=== PATIENT | female | born 1955 | race Caucasian/White ===

== ENCOUNTER 2022-07-07 11:23 | Inpatient (IN) ==
[2022-07-07] MEDS ORDERED: XOPENEX 1.25 MG/3 ML NEBULE NEB ONE (12:51)
[2022-07-07] MEDS: XOPENEX 1.25 MG/3 ML NEBULE NEB SCH ×2 (13:03→20:34)
[2022-07-07] MEDS ORDERED: TUSSIONEX PENNKINETIC SUSP PO PRN (13:10)
[2022-07-07] MEDS ORDERED: REMDESIVIR 200 MG in NS 250 ML IV 250 ML IV NR (13:18)
[2022-07-07 13:54] LABS: BASOPHILS % (AUTO) 0.5 % (0.2-1.0); EOSINOPHILS % (AUTO) 0.8 % (0.9-2.9); HEMATOCRIT 40.9 % (36.0-47.0); HEMOGLOBIN 13.4 g/dL (12.0-16.0); LYMPHOCYTES # (AUTO) 1.4 X10^3/uL (1.3-2.9); LYMPHOCYTES % (AUTO) 22.8 % (21.0-51.0); MEAN CORPUSCULAR HEMOGLOBIN 25.6 pg (27.0-34.0); MEAN CORPUSCULAR HGB CONC 32.7 g/dL (33.0-35.0); MEAN CORPUSCULAR VOLUME 78.3 fL (80.0-100.0); MEAN PLATELET VOLUME 7.1 fL (7.4-11.0); MONOCYTES # (AUTO) 0.6 x10^3/uL (0.3-0.8); MONOCYTES % (AUTO) 10.1 % (0.0-13.0); NEUTROPHILS # (AUTO) 4.1 x10^3/uL (2.2-4.8); NEUTROPHILS % (AUTO) 65.8 % (42.0-75.0); RED BLOOD COUNT 5.23 X10^6/uL (3.5-5.4); RED CELL DISTRIBUTION WIDTH 15.3 % (11.6-16.5); WHITE BLOOD COUNT 6.3 X10^3/uL (3.6-10.0)
--- NOTE | 2022-07-07 13:55 | EKG ---
Test Reason : SOB Blood Pressure : */* mmHG Vent. Rate : 82 BPM Atrial Rate : 82 BPM P-R Int : 122 ms QRS Dur : 90 ms QT Int : 322 ms P-R-T Axes : 63 -11 152 degrees QTc Int : 376 ms Normal sinus rhythm Left ventricular hypertrophy with repolarization abnormality ( [place] product ) Abnormal ECG No previous ECGs available Confirmed by Josh Cowart ([id number]) on 07/08/2022 9:51:29 AM Referred By: Confirmed By: Josh Cowart
[2022-07-07] MEDS ORDERED: NS 1/2 1,000 ML IV 1,000 ML IV ONE (14:02)
[2022-07-07 14:12] LABS: ALANINE AMINOTRANSFERASE 27 Units/L (12-78); ALBUMIN 2.2 g/dL (3.4-5.0); ALKALINE PHOSPHATASE 75 Units/L (46-116); ASPARTATE AMINO TRANSFERASE 33 Units/L (15-37); BLOOD UREA NITROGEN 17 mg/dL (7-18); CALCIUM 8.7 mg/dL (8.5-10.1); CARBON DIOXIDE 32.6 mmol/L (21-32); CHLORIDE 100 mmol/L (98-107); COR CA(FOR HYPOALB) 10.1 mg/dL (8.5-10.1); COR NA(FOR HYPERGLY) 138 mmol/L (136-145); CREATINE KINASE 32 Units/L (26-192); SODIUM 138 mmol/L (136-145); TOTAL PROTEIN 6.6 g/dL (6.4-8.2); eGFR NON BLACK RACES 53 (>60)
[2022-07-07] MEDS: NS 1/2 1,000 ML IV 1,000 ML IV SCH (14:16)
[2022-07-07] MEDS: LEVAQUIN PREMIX IV 500 MG 500 MG/100 ML BAG IV SCH (14:18)
[2022-07-07] MEDS: SOLU-Medrol 40 MG VIAL IVP SCH ×2 (14:18→21:31)
[2022-07-07] MEDS: ROBITUSSIN DM PO SCH ×3 (14:18→20:26)
[2022-07-07] MEDS: VSL#3 PO SCH (14:19)
[2022-07-07] MEDS ORDERED: POTASSIUM CHL 60 MEQ/NS 0.45% 500 ML IV PRN (14:25)
[2022-07-07] MEDS ORDERED: POTASSIUM CHLORIDE LIQ 20 MEQ UDC PO PRN (14:25)
[2022-07-07] MEDS ORDERED: K-RIDER 10 MEQ/NS 100 ML 10 MEQ/100 ML BAG IV PRN (14:25)
[2022-07-07] MEDS ORDERED: POTASSIUM CHL 40 MEQ/NS 0.45% 500 ML IV PRN (14:25)
[2022-07-07] MEDS ORDERED: MICRO K EXTEN CAP 10 MEQ PO PRN (14:25)
[2022-07-07] MEDS ORDERED: KLOR-CON PO PRN (14:25)
[2022-07-07] MEDS ORDERED: APRESOLINE TAB 10 MG PO PRN (14:54)
[2022-07-07] MEDS ORDERED: PriLOSEC PO SCH (15:00)
[2022-07-07] MEDS ORDERED: NS 100 ML IV 100 ML ONE (15:01)
--- NOTE | 2022-07-07 16:10 | CT ---
HISTORYCOVID POSITIVE, PNEUMONIA, R/O PESTUDYCTA CHESTCOMPARISONTECHNIQUEMultiple axial images of the chest were obtained from the thoracic inlet to the upper abdomen after the administration of IV contrast. 3D reconstructions utilizing axial MIPS imaging was performed and reviewed. Dose reduction techniques including Automated Exposure Control (AEC) and adjustment of mA and kV were utilized.FINDINGSThe heart size is normal. Changes of coronary artery bypass graft are noted. There is no abnormal dilation of the main pulmonary trunk. There is no filling defect in the pulmonary circulation. There are reactive sized mediastinal lymph nodes. There is some bronchial wall thickening and fluid in the right lower lobe airways. There is diffuse abnormal interstitial prominence suggestive of either edema or chronic interstitial lung disease. Differential could include viral pneumonia. There is no pleural effusion or pneumothorax. The upper abdominal structures are grossly unremarkable. There are no worrisome bone marrow lesions.IMPRESSION1. Negative for pulmonary embolus. 2. Bronchial wall thickening with fluid in the right lower lobe airways. 3. Mild, diffuse interstitial prominence suggestive of edema or interstitial lung disease. Differential would include viral pneumonia.Electronically signed by: Tripp Dhaliwal (Jul 07, 2022 16:08:51)
[2022-07-07] MEDS: BUSPAR PO SCH ×2 (16:25→21:31)
--- NOTE | 2022-07-07 16:58 | RAD ---
HISTORYCOVID +, SOB, PNEUMONIASTUDYCHEST x-ray, 1 VIEWCOMPARISONNoneFINDINGSPrior cardiac surgery. Heart is normal in size. No pneumothorax, focal trade, or pleural effusion is seen.IMPRESSIONNo acute cardiopulmonary abnormality is seen.Electronically signed by: Yunier Vidal (Jul 07, 2022 16:57:01)
[2022-07-07] MEDS ORDERED: PULMICORT NEB TX 0.5 MG NEB ONE (20:00)
[2022-07-07] MEDS ORDERED: GLUCOPHAGE ONE (20:11)
[2022-07-07] MEDS ORDERED: ZESTRIL TAB 20 MG ONE (20:11)
[2022-07-07] MEDS: VITAMIN C PO SCH (20:26)
[2022-07-07] MEDS: LOPRESSOR TAB 50 MG PO SCH (20:27)
[2022-07-07] MEDS: NORCO 7.5/325 MG TAB PO PRN (20:27)
[2022-07-07] MEDS: CRESTOR TAB 10 MG PO SCH (20:28)
[2022-07-07] MEDS: GLUCOPHAGE PO SCH (20:28)
[2022-07-07] MEDS: ZESTRIL TAB 20 MG PO SCH (20:29)
[2022-07-07] MEDS: MAGNESIUM SULFATE 1 GRAM/100 mL PREMIX 1 G/100 ML BAG IV PRN ×2 (20:29→21:32)
[2022-07-07] MEDS: CARAFATE PO SCH (20:29)
[2022-07-07] MEDS: PULMICORT NEB TX 0.5 MG NEB SCH (20:34)
[2022-07-07] MEDS: K-DUR TAB 20 MEQ PO PRN (21:32)
[2022-07-08] MEDS: SOLU-Medrol 40 MG VIAL IVP SCH ×3 (05:09→21:18)
[2022-07-08] MEDS: BUSPAR PO SCH ×3 (05:10→21:18)
[2022-07-08] MEDS: NS 1/2 1,000 ML IV 1,000 ML IV SCH ×2 (05:10→17:42)
[2022-07-08] MEDS: XOPENEX 1.25 MG/3 ML NEBULE NEB SCH ×4 (06:16→20:53)
[2022-07-08 07:11] LABS: BASOPHILS % (AUTO) 0.2 % (0.2-1.0); HEMATOCRIT 38.3 % (36.0-47.0); HEMOGLOBIN 12.6 g/dL (12.0-16.0); LYMPHOCYTES # (AUTO) 0.6 X10^3/uL (1.3-2.9); LYMPHOCYTES % (AUTO) 16.4 % (21.0-51.0); MEAN CORPUSCULAR HEMOGLOBIN 25.6 pg (27.0-34.0); MEAN CORPUSCULAR HGB CONC 32.9 g/dL (33.0-35.0); MEAN CORPUSCULAR VOLUME 77.8 fL (80.0-100.0); MEAN PLATELET VOLUME 7.6 fL (7.4-11.0); MONOCYTES # (AUTO) 0.2 x10^3/uL (0.3-0.8); MONOCYTES % (AUTO) 5.9 % (0.0-13.0); NEUTROPHILS % (AUTO) 77.5 % (42.0-75.0); RED BLOOD COUNT 4.92 X10^6/uL (3.5-5.4); RED CELL DISTRIBUTION WIDTH 15.2 % (11.6-16.5); WHITE BLOOD COUNT 3.8 X10^3/uL (3.6-10.0)
[2022-07-08 07:29] LABS: ALBUMIN 2.1 g/dL (3.4-5.0); CALCIUM 8.9 mg/dL (8.5-10.1); CARBON DIOXIDE 28.4 mmol/L (21-32); COR CA(FOR HYPOALB) 10.4 mg/dL (8.5-10.1); CREATININE 1.39 mg/dL (0.55-1.02); TOTAL PROTEIN 6.5 g/dL (6.4-8.2)
--- NOTE | 2022-07-08 07:32 | RAD ---
HISTORYCOVID+; SOBSTUDYCHEST, 1 [id number]/27/2022.TECHNIQUEPA or AP view of the chestFINDINGSCardiac and mediastinal contours are within normal limits. Post median sternotomy and CABG. Lung changes of mild COPD. Nodular ground-glass opacity seen on prior CT in the left lower lobe image 79 series 8 measuring 12 x 7 mm is not visualized well radiographically. No definite pleural effusion or pneumothorax.IMPRESSIONMild COPD. Nodular left lower lobe ground-glass opacity. Recommend three-month CT follow-up.Electronically signed by: Ramez Jennings (Jul 08, 2022 07:30:47)
[2022-07-08] MEDS: PULMICORT NEB TX 0.5 MG NEB SCH ×2 (08:20→20:53)
[2022-07-08] MEDS ORDERED: GLUCOPHAGE ONE ×2 (08:21→20:00)
[2022-07-08] MEDS ORDERED: ZESTRIL TAB 20 MG ONE ×2 (08:21→20:00)
[2022-07-08] MEDS: LOPRESSOR TAB 50 MG PO SCH ×2 (08:49→20:36)
[2022-07-08] MEDS: VSL#3 PO SCH (08:49)
[2022-07-08] MEDS: ZESTRIL TAB 20 MG PO SCH ×2 (08:50→20:37)
[2022-07-08] MEDS: CARAFATE PO SCH ×2 (08:50→20:38)
[2022-07-08] MEDS: NORVASC TAB 10 MG PO SCH (08:50)
[2022-07-08] MEDS: GLUCOPHAGE PO SCH ×2 (08:51→20:37)
[2022-07-08] MEDS: KEPPRA TAB 500 MG PO SCH (08:51)
[2022-07-08] MEDS: PLAVIX PO SCH (08:51)
[2022-07-08] MEDS: ASPIRIN EC 81 MG PO SCH (08:51)
[2022-07-08] MEDS: VITAMIN C PO SCH ×2 (08:51→20:37)
[2022-07-08] MEDS: PROTONIX TAB 40 MG PO SCH (08:51)
[2022-07-08] MEDS: TRICOR TAB 48 MG PO SCH (08:52)
[2022-07-08] MEDS: LEVAQUIN PREMIX IV 500 MG 500 MG/100 ML BAG IV SCH (08:52)
[2022-07-08] MEDS: REMDESIVIR 100 MG in NS 250 ML IV 250 ML IV SCH (08:52)
[2022-07-08] MEDS: LANTUS SC SCH (08:53)
[2022-07-08] MEDS: ROBITUSSIN DM PO SCH ×4 (09:26→20:37)
[2022-07-08] MEDS: LOVENOX INJ 30 MG SYR SC SCH ×2 (11:43→20:36)
--- NOTE | 2022-07-08 16:59 | DR.H&P ---
H&P - History & Physical for Day of: H&P Date: 07/07/22 - Chief Complaint Chief Complaint: COUGH, COLD, CONGESTION, SOB, HYPOXIA, COVID-19 - History of Present Illness History of Present Illness: IS A 67 YEAR OLD PATIENT OF OURS. SHE PRESENTED TO THE HOSPITAL OBSERVATION STATUS FOR TREATMENT OF PNEUMONIA DUE TO COVID-19 AND HYPOXIA. SHE REPORTS HAVING NON-PRODUCTIVE COUGH, COLD, CONGESTION, AND SHORTNESS OF BREATH FOR THE PAST WEEK. SHE REPORTS TESTING POSITIVE FOR COVID-19 AT [facility] ER ON 07/03/22. SHE WAS GIVEN AN ALBUTEROL INHALER. UPON PRESENTATION TODAY, PATIENT REPORTS THAT SYMPTOMS HAVE WORSENED DESPITE USING THE INHALER. SHE REPORTS THAT HER OXYGEN SATURATIONS AT HOME HAVE BEEN 84-86% ON ROOM AIR. SHE DOES NOT USE HOME OXYGEN. HER PMH INCLUDES: CVA, SEIZURE DISORDER, CAD, [place], HYPERLIPIDEMIA, HTN, COPD, GERD, ARTHRITIS, CHRONIC LOW BACK PAIN, CAGB, LOOP RECORDER PLACEMENT, AND BACK SURGERY. ON ARRIVAL TO THE HOSPITAL, VITALS WERE: 97.8-94-20-90% RA-175/81. LABS WERE OBTAINED. WBC 6.3, RBC 5.23, HGB 13.4, HCT 40.9, PLT COUNT 223, D-DIMER 2.53, SODIUM 138, POTASSIUM 2.7, CHLORIDE 100, CARBON DIOXIDE 32.6, BUN 17, CREATININE 1.10, GLUCOSE 120, MAGNESIUM 1.7, AST 33, ALT 27, ALK PHOS 75, CREAT INE KINASE 32, TROPONIN 32.8, CRP 102.80, BNP 324, TOTAL PROTEIN 6.6, ALBUMIN 2.2. BLOOD CULTURES WERE SET UP. A CHEST CTA WAS OBTAINED. IT REVEALED: The heart size is normal. Changes of coronary artery bypass graft are noted. There is no abnormal dilation of the main pulmonary trunk. There is no filling defect in the pulmonary circulation. There are reactive sized mediastinal lymph nodes. There is some bronchial wall thickening and fluid in the right lower lobe airways. There is diffuse abnormal interstitial prominence suggestive of either edema or chronic interstitial lung disease. Differential could include viral pneumonia. There is no pleural effusion or pneumothorax. The upper abdominal structures are grossly unremarkable. There are no worrisome bone marrow lesions. EKG REVEALED NORMAL SINUS RHYTHM WITH HR 82. SHE WAS STARTED ON NORMAL SALINE AT KVO, REMDESIVIR 100MG IV DAILY, LEVAQUIN 500MG IV DAILY, SOLU-MEDROL 80MG IV Q8H, LOVENOX 30MG SC BID, ROBITUSSIN DM 10ML QID, TUSSIONEX 5ML Q12H PRN, ASCORBIC ACID 1000MG PO BID, XOPENEX NEB TX TID, PULMICORT NEB TX BID, AND HER HOME MEDICATIONS WERE RESUMED. OTHERWISE, WE WILL FOLLOW-UP WITH AM LABS AND CHEST XRAY AND CONTINUE TO MONITOR. TIME SPENT ON CLINICAL ASSESSMENT, REVIEWING LABS AND IMAGING, DECISION MAKING, AND DOCUMENTATION GREATER THAN 75 MINUTES. - Past Medical History Past Medical History: Arthritis, COPD, Coronary Artery Disease, CVA, GERD, Hypertension, Hyperthyroidism, AZ, Seizures - Past Surgical History Surgical History: CABG/Valve Surgery Additional Surgical History: LOOP RECORDER, BACK SURGERY - Family History Family Medical History: Diabetes Mellitus, Coronary Artery Disease - Social History Does patient currently use any type of tobacco product: Yes Have you used tobacco products in the last 12 months: Yes Type of Tobacco Use: Cigarettes Alcohol Use: None Drug Use: None - Medications Home Medications: No Known Allergies Allergy (Verified 07/07/22 13:28) CONTINUE taking the following medications amlodipine 10 mg tablet 10 mg PO QDAY 07/07/22 [History] aspirin 81 mg tablet,delayed release 81 mg PO DAILY 07/07/22 [History] buspirone 15 mg tablet 15 mg PO TID 07/07/22 [History] clopidogrel 75 mg tablet 75 mg PO QDAY 07/07/22 [History] fenofibrate 54 mg tablet 54 mg PO QDAY 07/07/22 [History] hydralazine 10 mg tablet 10 mg PO TID PRN 07/07/22 [History] hydrocodone 7.5 mg-acetaminophen 325 mg tablet 7.5 mg PO TID PRN 07/07/22 [History] insulin degludec 100 unit/mL (3 mL) subcutaneous pen (Tresiba FlexTouch U-100 insulin) 25 unit subcut QDAY 07/07/22 [History] levetiracetam 500 mg tablet 500 mg PO QDAY 07/07/22 [History] lisinopril 20 mg tablet 20 mg PO BID 07/07/22 [History] metformin 1,000 mg tablet 1,000 mg PO BID 07/07/22 [History] metoprolol succinate 50 mg tablet,extended release 24 hr 100 mg PO BID 07/07/22 [History] omeprazole 40 mg capsule,delayed release 40 mg PO QDAY 07/07/22 [History] rosuvastatin 40 mg tablet 40 mg PO QDAY 07/07/22 [History] sucralfate 1 gram tablet 1 g PO BID 07/07/22 [History] - Review of Systems Constitutional: Chills, Weakness Eyes: No Symptoms Reported ENT: No Symptoms Reported Respiratory: See HPI, Cough, Shortness of Breath, SOB with Excertion Cardiovascular: No Symptoms Reported Gastrointestinal: No Symptoms Reported Genitourinary: No Symptoms Reported Musculoskeletal: No Symptoms Reported Skin: No Symptoms Reported Neurological: Weakness - Physical Exam Vital Signs: Temperature 98.2 F Pulse Rate [Right Brachial] 56 Pulse Rate 64 Respiratory Rate 20 Blood Pressure [Right Arm] 134/64 O2 Sat by Pulse Oximetry 95 Oriented: Normal Eyes: Normal Ear: Normal Nose: Normal Throat: Normal Respiratory: Diminished Throughout, Rhonchi Throughout Cardiovascular: Normal : Normal Auscultation: Bowel Sounds: Normal Palpation: Normal Tenderness: Normal Skin: Normal Musculoskeletal: Normal Psychiatric: Normal Mood Description: Calm Affect: Normal Speech Pattern: Clear - Allergies Allergies/Adverse Reactions: Allergies Allergy/AdvReac Type Severity Reaction Status Date / Time No Known Allergies Allergy Verified 07/07/22 13:28
[2022-07-08] MEDS ORDERED: NS 1/2 1,000 ML IV 1,000 ML IV ONE (17:36)
[2022-07-08] MEDS: CRESTOR TAB 10 MG PO SCH (20:37)
[2022-07-09] MEDS: BUSPAR PO SCH ×3 (05:30→21:12)
[2022-07-09] MEDS: SOLU-Medrol 40 MG VIAL IVP SCH ×3 (05:30→21:11)
[2022-07-09 05:51] LABS: BASOPHILS % (AUTO) 0.1 % (0.2-1.0); HEMATOCRIT 35.9 % (36.0-47.0); LYMPHOCYTES % (AUTO) 7.7 % (21.0-51.0); MEAN CORPUSCULAR HEMOGLOBIN 25.8 pg (27.0-34.0); MEAN CORPUSCULAR HGB CONC 33.4 g/dL (33.0-35.0); MEAN CORPUSCULAR VOLUME 77.2 fL (80.0-100.0); MEAN PLATELET VOLUME 7.4 fL (7.4-11.0); MONOCYTES # (AUTO) 0.7 x10^3/uL (0.3-0.8); MONOCYTES % (AUTO) 5.7 % (0.0-13.0); NEUTROPHILS # (AUTO) 10.9 x10^3/uL (2.2-4.8); NEUTROPHILS % (AUTO) 86.5 % (42.0-75.0); RED BLOOD COUNT 4.64 X10^6/uL (3.5-5.4); RED CELL DISTRIBUTION WIDTH 15.2 % (11.6-16.5); WHITE BLOOD COUNT 12.6 X10^3/uL (3.6-10.0)
[2022-07-09 06:06] LABS: ALBUMIN 2.1 g/dL (3.4-5.0); CALCIUM 8.9 mg/dL (8.5-10.1); CARBON DIOXIDE 28.7 mmol/L (21-32); COR CA(FOR HYPOALB) 10.4 mg/dL (8.5-10.1); CREATININE 1.89 mg/dL (0.55-1.02)
[2022-07-09] MEDS: XOPENEX 1.25 MG/3 ML NEBULE NEB SCH ×3 (06:16→21:00)
--- NOTE | 2022-07-09 06:27 | RAD ---
HISTORYCOVID, SOB Relevant Clinical InformationSTUDYCHEST, 1 [id number]/28/2022FINDINGSThe trachea is midline. The cardiac silhouette is unremarkable. Mediastinal clips and sternotomy wires. The lungs are clear without focal infiltrate or effusion. The bony thorax is unremarkable.IMPRESSIONNo acute cardiopulmonary findings .Electronically signed by: Jerman Montgomery (Jul 09, 2022 06:26:02)
[2022-07-09] MEDS ORDERED: GLUCOPHAGE ONE ×2 (08:21→20:13)
[2022-07-09] MEDS ORDERED: ZESTRIL TAB 20 MG ONE ×2 (08:22→20:14)
[2022-07-09] MEDS: PULMICORT NEB TX 0.5 MG NEB SCH ×2 (08:35→21:00)
[2022-07-09] MEDS: LOVENOX INJ 30 MG SYR SC SCH ×2 (08:43→20:23)
[2022-07-09] MEDS: LEVAQUIN PREMIX IV 500 MG 500 MG/100 ML BAG IV SCH (08:44)
[2022-07-09] MEDS: LANTUS SC SCH (08:44)
[2022-07-09] MEDS: KEPPRA TAB 500 MG PO SCH (08:45)
[2022-07-09] MEDS: ROBITUSSIN DM PO SCH ×4 (08:45→20:24)
[2022-07-09] MEDS: TRICOR TAB 48 MG PO SCH (08:45)
[2022-07-09] MEDS: PROTONIX TAB 40 MG PO SCH (08:45)
[2022-07-09] MEDS: NORVASC TAB 10 MG PO SCH (08:45)
[2022-07-09] MEDS: ASPIRIN EC 81 MG PO SCH (08:45)
[2022-07-09] MEDS: ZESTRIL TAB 20 MG PO SCH ×2 (08:46→20:25)
[2022-07-09] MEDS: PLAVIX PO SCH (08:48)
[2022-07-09] MEDS: LOPRESSOR TAB 50 MG PO SCH ×2 (08:48→20:24)
[2022-07-09] MEDS: VSL#3 PO SCH (08:48)
[2022-07-09] MEDS: VITAMIN C PO SCH ×2 (08:48→20:23)
[2022-07-09] MEDS: NS 1/2 1,000 ML IV 1,000 ML IV SCH (08:49)
[2022-07-09] MEDS: REMDESIVIR 100 MG in NS 250 ML IV 250 ML IV SCH (08:50)
[2022-07-09] MEDS: CARAFATE PO SCH ×2 (08:50→20:23)
[2022-07-09 11:30] LABS: CRYPTOSPORIDIUM PARVUM ANTIGEN NEGATIVE (NEGATIVE); GIARDIA LAMBLIA ANTIGEN NEGATIVE (NEGATIVE)
[2022-07-09] MEDS ORDERED: LOMOTIL PO PRN (13:32)
--- NOTE | 2022-07-09 13:52 | PCM.PROG ---
Progress Note - Progress Note for Day of Date of Exam: 07/08/22 - Subjective Subjective: IS CURRENTLY OBSERVATION STATUS FOR TREATMENT OF PNEUMONIA DUE TO COVID-19 AND HYPOXIA. RISK FACTORS AND PMH INCLUDE: CVA, SEIZURE DISORDER, CAD, [place], HYPERLIPIDEMIA, HTN, AND CAGB. TODAY, SHE IS ALERT AND ORIENTED, LYING IN BED ON MORNING ROUNDS. SHE CONTINUES TO COMPLAIN OF A NON -PRODUCTIVE COUGH, SHORTNESS OF BREATH, AND GENERALIZED WEAKNESS TODAY. SHE ALSO COMPLAINS OF DIARRHEA THIS MORNING. ON EXAMINATION, HEART IS REGULAR IN RATE AND RHYTHM. BILATERAL LUNGS ARE NOTED WITH DIMINISHED LUNG SOUNDS THROUGHOUT. ABDOMEN IS ROUND, SOFT, AND NON-TENDER WITH HYPERACTIVE BOWEL SOUNDS NOTED IN ALL QUADRANTS. TRACE LOWER EXTREMITY EDEMA NOTED. HER VITALS THIS MORNING ARE: 97.7-82-20-93%-155/70. SHE IS CURRENTLY UTILIZING OXYGEN VIA NASAL CANNULA AT 2 LPM. LABS WERE OBTAINED. WBC 3.8, RBC 4.92, HGB 12.6, HCT 38.3, PLT COUNT 249, SODIUM 138, POTASSIUM 4.1, CHLORIDE 99, CARBON DIOXIDE 28.4, BUN 19, CREATININE 1.39, GLUCOSE 239, CALCIUM 8.9, MAGNESIUM 2.4, AST 33, ALT 28, ALK PHOS 77, CRP 74.10, BNP 480, TOTAL PROTEIN 6.5, ALBUMIN 2.1. A RESPIRATORY VIRAL PANEL IS PENDING. BLOOD CULTURES ARE ALSO PENDING. A CHEST XRAY WAS REPEATED THIS MORNING AND REVEALED: Cardiac and mediastinal contours are within normal limits. Post median sternotomy and CABG. Lung changes of mild COPD. Nodular ground-glass opacity seen on prior CT in the left lower lobe image 79 series 8 measuring 12 x 7 mm is not visualized well radiographically. No definite pleural effusion or pneumothorax. SHE IS CURRENTLY RECEIVING NORMAL SALINE AT KVO, REMDESIVIR 100MG IV DAILY, LEVAQUIN 500MG IV DAILY, SOLU-MEDROL 80MG IV Q8H, LOVENOX 30MG SC BID, ROBITUSSIN DM 10ML QID, TUSSIONEX 5ML Q12H PRN, ASCORBIC ACID 1000MG PO BID, XOPENEX NEB TX TID, PULMICORT NEB TX BID, AND HER HOME MEDICATIONS WERE RESUMED. WE WILL CONTINUE WITH CURRENT PLAN OF CARE TODAY. OTHERWISE, WE WILL FOLLOW-UP WITH AM LABS AND CHEST XRAY AND CONTINUE TO MONITOR. TIME SPENT ON CLINICAL ASSESSMENT, REVIWING LABS AND IMAGING, DECISION MAKING, AND DOCUMENTATION GREATER THAN 45 MINUTES. - Past Medical Family Social History Past Med/Fam/Surg Hx: No changes since H&P Allergies: Allergies No Known Allergies Allergy (Verified 07/07/22 13:28) - Review of Systems ROS: No change since H&P - Vital Signs and I&O's Vital Signs: Temperature 98.2 F Pulse Rate [Right Brachial] 52 Pulse Rate 64 Respiratory Rate 20 Blood Pressure [Right Arm] 134/63 O2 Sat by Pulse Oximetry 94 Intake and Output: Intake & Output 07/07/22 07/08/22 07/09/22 07/10/22 11:59 11:59 11:59 11:59 Intake Total 1077 / 8 1957 Balance 107 / 1078 1957 - Physical Exam Oriented: Normal Eyes: Normal Ear: Normal Nose: Normal Throat: Normal Respiratory: Generalized, Diminished Cardiovascular: Normal : Normal Auscultation: Bowel Sounds: Normal Palpation: Normal Tenderness: Normal Skin: Normal Musculoskeletal: Normal Psychiatric: Normal Mood Description: Calm Affect: Normal Speech Pattern: Clear, Appropriate - Laboratory and Diagnostics Result Diagrams: 07/09/22 05:21 07/09/22 05:21 Labs: 07/09/22 09:35 Stool - Final 07/07/22 13:44 Blood Blood Culture - Preliminary 07/07/22 13:33 Blood Blood Culture - Preliminary Laboratory WBC 12.6 X10^3/uL (3.6-10.0) H D 07/09/22 05:21 RBC 4.64 X10^6/uL (3.5-5.4) 07/09/22 05:21 Hgb 12.0 g/dL (12.0-16.0) 07/09/22 05:21 Hct 35.9 % (36.0-47.0) L 07/09/22 05:21 MCV 77.2 fL (80.0-100.0) L 07/09/22 05:21 MCH 25.8 pg (27.0-34.0) L 07/09/22 05:21 MCHC 33.4 g/dL (33.0-35.0) 07/09/22 05:21 RDW 15.2 % (11.6-16.5) 07/09/22 05:21 Plt Count 309 X10^3/uL (150.0-450.0) 07/09/22 05:21 MPV 7.4 fL (7.4-11.0) 07/09/22 05:21 Neut % (Auto) 86.5 % (42.0-75.0) H 07/09/22 05:21 Lymph % (Auto) 7.7 % (21.0-51.0) L 07/09/22 05:21 [place] % (Auto) 5.7 % (0.0-13.0) 07/09/22 05:21 Eos % (Auto) 0.0 % (0.9-2.9) L 07/09/22 05:21 Baso % (Auto) 0.1 % (0.2-1.0) L 07/09/22 05:21 Neut # (Auto) 10.9 x10^3/uL (2.2-4.8) H 07/09/22 05:21 Lymph # (Auto) 1.0 X10^3/uL (1.3-2.9) L 07/09/22 05:21 [place] # (Auto) 0.7 x10^3/uL (0.3-0.8) 07/09/22 05:21 Eos # (Auto) 0.0 x10^3/uL (0.0-0.2) 07/09/22 05:21 Baso # (Auto) 0.0 X10^3/uL (0.0-0.1) 07/09/22 05:21 Absolute Nucleated RBC 0.0 /100WBC 07/09/22 05:21 D-Dimer 2.53 ug/ml (0.0-0.57) H 07/07/22 13:33 Sodium 137 mmol/L (136-145) 07/09/22 05:21 Corrected Sodium 139 mmol/L (136-145) 07/09/22 05:21 Potassium 4.1 mmol/L (3.5-5.1) 07/09/22 05:21 Chloride 100 mmol/L (98-107) 07/09/22 05:21 Carbon Dioxide 28.7 mmol/L (21-32) 07/09/22 05:21 BUN 31 mg/dL (7-18) H 07/09/22 05:21 Creatinine 1.89 mg/dL (0.55-1.02) H 07/09/22 05:21 Est GFR (MDRD) Af Amer 34 (>60) L 07/09/22 05:21 Est GFR (MDRD) Non-Af 28 (>60) L 07/09/22 05:21 Glucose 191 mg/dL (65-99) H 07/09/22 05:21 POC Glucose (mg/dL) 223 mg/dL (65-99) H 07/09/22 12:20 Calcium 8.9 mg/dL (8.5-10.1) 07/09/22 05:21 Corrected Calcium 10.4 mg/dL (8.5-10.1) H 07/09/22 05:21 Magnesium 2.4 mg/dL (2.0-2.9) 07/08/22 05:56 Total Bilirubin 0.40 mg/dL (0.2-1.0) 07/09/22 05:21 AST 23 Units/L (15-37) 07/09/22 05:21 ALT 25 Units/L (12-78) 07/09/22 05:21 Alkaline Phosphatase 68 Units/L (46-116) 07/09/22 05:21 Creatine Kinase 32 Units/L (26-192) 07/07/22 13:33 Troponin I High Sens 32.8 ng/L (4.0-60.0) 07/07/22 13:33 C-Reactive Protein 37.50 mg/L (0-3.0) H 07/09/22 05:21 B-Natriuretic Peptide 609 pg/mL (0-79) H* 07/09/22 05:21 Total Protein 6.0 g/dL (6.4-8.2) L 07/09/22 05:21 Albumin 2.1 g/dL (3.4-5.0) L 07/09/22 05:21 Globulin 3.9 g/dL (2.5-4.5) 07/09/22 05:21 Albumin/Globulin Ratio 0.5 Ratio (1.1-2.1) L 07/09/22 05:21 Stl Occult Blood (IFOB) Positive (NEGATIVE) A 07/09/22 09:35 Stool for White Cells Positive (NEGATIVE) A 07/09/22 09:35 Stl C. diff Tox B Gene Negative (NEGATIVE) 07/09/22 09:35 Stl C. diff [id number] Presumptive negative (NEGATIVE) 07/09/22 09:35 Stool H. pylori Ag Negative (NEGATIVE) 07/09/22 09:35 Cryptosporid parvum Ag Negative (NEGATIVE) 07/09/22 09:35 Giardia lamblia Ag Negative (NEGATIVE) 07/09/22 09:35 Resp Viral Panel (PCR) See scanned report 07/07/22 13:03 - Plan (1) Pneumonia due to COVID-19 virus Status: Acute Plan: SUPPLEMENTAL OXYGEN, RESPIRATORY THERAPY, NORMAL SALINE AT KVO, REMDESIVIR 100MG IV DAILY, LEVAQUIN 500MG IV DAILY, SOLU-MEDROL 80MG IV Q8H, LOVENOX 30MG SC BID, ROBITUSSIN DM 10ML QID, TUSSIONEX 5ML Q12H PRN, ASCORBIC ACID 1000MG PO BID, XOPENEX NEB TX TID, PULMICORT NEB TX BID, AND HER HOME MEDICATIONS WERE RESUMED. (2) Hypoxia Status: Acute (3) HTN (hypertension) Status: Chronic Qualifiers: Hypertension type: primary hypertension Qualified Code(s): I10 - Essential (primary) hypertension (4) CAD (coronary artery disease) Status: Chronic Qualifiers: Coronary Disease-Associated Artery/Lesion type: bypass graft [place] vs. transplanted heart: [place] heart (5) Seizure disorder Status: Chronic (6) Hyperlipidemia Status: Chronic Qualifiers: Hyperlipidemia type: mixed hyperlipidemia Qualified Code(s): E78.2 - Mixed hyperlipidemia
--- NOTE | 2022-07-09 15:07 | PCM.PROG ---
Progress Note - Progress Note for Day of Date of Exam: 07/09/22 - Subjective Subjective: IS CURRENTLY INPATIENT STATUS FOR TREATMENT OF PNEUMONIA DUE TO COVID-19, HYPOXIA, AND DEHYDRATION. RISK FACTORS AND PMH INCLUDE: CVA, SEIZURE DISORDER, CAD, [place], HYPERLIPIDEMIA, HTN, AND CAGB. TODAY, SHE IS ALERT AND ORIENTED, LYING IN BED ON MORNING ROUNDS. SHE CONTINUES TO COMPLAIN OF A NON-PRODUCTIVE COUGH, SHORTNESS OF BREATH, AND GENERALIZED WEAKNESS TODAY. SHE ALSO COMPLAINS OF PERSISTENT DIARRHEA THIS MORNING. ON EXAMINATION, HEART IS REGULAR IN RATE AND RHYTHM. BILATERAL LUNGS ARE NOTED WITH DIMINISHED LUNG SOUNDS THROUGHOUT. ABDOMEN IS ROUND, SOFT, AND NON-TENDER WITH HYPERACTIVE BOWEL SOUNDS NOTED IN ALL QUADRANTS. TRACE LOWER EXTREMITY EDEMA NOTED. HER VITALS TH MORNING ARE: 97.5-69-20-95%-167/71. SHE IS CURRENTLY UTILIZING OXYGEN VIA NASAL CANNULA AT 2 LPM. LABS WERE OBTAINED. WBC 12.6, RBC 4.64, HGB 12.0, HCT 35.9, PLT COUNT 309, SODIUM 137, POTASSIUM 4.1, CHLORIDE 100, CARBON DIOXIDE 28.7, BUN 31, CREATININE 1.89, GLUCOSE 191, CALCIUM 8.9, AST 23, ALT 25, ALK PHOS 68, CRP 37.50, BNP 609, TOTAL PROTEIN 6.0, ALBUMIN 2.1. A RESPIRATORY VIRAL PANEL WAS COLLECTED. IT REVEALED GROWTH OF ENTEROBACTER SPP, E.COLI, KLEBSIELLA SPP, AND STREPTOCOCCUS PNEUMONIAE. BLOOD CULTURES ARE ALSO PENDING. STOOL STUDIES WERE SET UP THIS MORNING. STOOL IS POSITIVE FOR BLOOD AND WHITE CELLS. A STOOL CULTURE WAS SET UP. A CHEST XRAY WAS REPEATED THIS MORNING AND REVEALED: The trachea is midline. The cardiac silhouette is unremarkable. Mediastinal clips and sternotomy wires. The lungs are clear without focal infiltrate or effusion. The bony thorax is unremarkable. SHE IS CURRENTLY RECEIVING NORMAL SALINE AT KVO, REMDESIVIR 100MG IV DAILY, LEVAQUIN 500MG IV DAILY, SOLU-MEDROL 80MG IV Q8H, LOVENOX 30MG SC BID, ROBITUSSIN DM 10ML QID, TUSSIONEX 5ML Q12H PRN, ASCORBIC ACID 1000MG PO BID, XOPENEX NEB TX TID, PULMICORT NEB TX BID, AND HER HOME MEDICATIONS WERE RESUMED. WE WILL CONTINUE WITH CURRENT PLAN OF CARE TODAY AND INCREASE IV FLUIDS TO 60 ML/HR. OTHERWISE, WE WILL FOLLOW-UP WITH AM LABS AND CHEST XRAY AND CONTINUE TO MONITOR. TIME SPENT ON CLINICAL ASSESSMENT, REVIWING LABS AND IMAGING, DECISION MAKING, AND DOCUMENTATION GREATER THAN 45 MINUTES. - Past Medical Family Social History Past Med/Fam/Surg Hx: No changes since H&P Allergies: Allergies No Known Allergies Allergy (Verified 07/07/22 13:28) - Review of Systems ROS: No change since H&P - Vital Signs and I&O's Vital Signs: Temperature 98.2 F Pulse Rate [Right Brachial] 52 Pulse Rate 64 Respiratory Rate 20 Blood Pressure [Right Arm] 134/63 O2 Sat by Pulse Oximetry 94 Intake and Output: Intake & Output 07/07/22 07/08/22 07/09/22 07/10/22 11:59 11:59 11:59 11:59 Intake Total 8 / 1078 1957 Balance 1078 / 1078 1957 - Physical Exam Oriented: Normal Eyes: Normal Ear: Normal Nose: Normal Throat: Normal Respiratory: Generalized, Diminished Cardiovascular: Normal : Normal Auscultation: Bowel Sounds: Normal Palpation: Normal Tenderness: Normal Skin: Normal Musculoskeletal: Normal Psychiatric: Normal Mood Description: Calm Affect: Normal Speech Pattern: Clear, Appropriate - Laboratory and Diagnostics Result Diagrams: 07/09/22 05:21 07/09/22 05:21 Labs: 07/09/22 09:35 Stool - Final 07/07/22 13:44 Blood Blood Culture - Preliminary 07/07/22 13:33 Blood Blood Culture - Preliminary Laboratory WBC 12.6 X10^3/uL (3.6-10.0) H D 07/09/22 05:21 RBC 4.64 X10^6/uL (3.5-5.4) 07/09/22 05:21 Hgb 12.0 g/dL (12.0-16.0) 07/09/22 05:21 Hct 35.9 % (36.0-47.0) L 07/09/22 05:21 MCV 77.2 fL (80.0-100.0) L 07/09/22 05:21 MCH 25.8 pg (27.0-34.0) L 07/09/22 05:21 MCHC 33.4 g/dL (33.0-35.0) 07/09/22 05:21 RDW 15.2 % (11.6-16.5) 07/09/22 05:21 Plt Count 309 X10^3/uL (150.0-450.0) 07/09/22 05:21 MPV 7.4 fL (7.4-11.0) 07/09/22 05:21 Neut % (Auto) 86.5 % (42.0-75.0) H 07/09/22 05:21 Lymph % (Auto) 7.7 % (21.0-51.0) L 07/09/22 05:21 [place] % (Auto) 5.7 % (0.0-13.0) 07/09/22 05:21 Eos % (Auto) 0.0 % (0.9-2.9) L 07/09/22 05:21 Baso % (Auto) 0.1 % (0.2-1.0) L 07/09/22 05:21 Neut # (Auto) 10.9 x10^3/uL (2.2-4.8) H 07/09/22 05:21 Lymph # (Auto) 1.0 X10^3/uL (1.3-2.9) L 07/09/22 05:21 [place] # (Auto) 0.7 x10^3/uL (0.3-0.8) 07/09/22 05:21 Eos # (Auto) 0.0 x10^3/uL (0.0-0.2) 07/09/22 05:21 Baso # (Auto) 0.0 X10^3/uL (0.0-0.1) 07/09/22 05:21 Absolute Nucleated RBC 0.0 /100WBC 07/09/22 05:21 D-Dimer 2.53 ug/ml (0.0-0.57) H 07/07/22 13:33 Sodium 137 mmol/L (136-145) 07/09/22 05:21 Corrected Sodium 139 mmol/L (136-145) 07/09/22 05:21 Potassium 4.1 mmol/L (3.5-5.1) 07/09/22 05:21 Chloride 100 mmol/L (98-107) 07/09/22 05:21 Carbon Dioxide 28.7 mmol/L (21-32) 07/09/22 05:21 BUN 31 mg/dL (7-18) H 07/09/22 05:21 Creatinine 1.89 mg/dL (0.55-1.02) H 07/09/22 05:21 Est GFR (MDRD) Af Amer 34 (>60) L 07/09/22 05:21 Est GFR (MDRD) Non-Af 28 (>60) L 07/09/22 05:21 Glucose 191 mg/dL (65-99) H 07/09/22 05:21 POC Glucose (mg/dL) 223 mg/dL (65-99) H 07/09/22 12:20 Calcium 8.9 mg/dL (8.5-10.1) 07/09/22 05:21 Corrected Calcium 10.4 mg/dL (8.5-10.1) H 07/09/22 05:21 Magnesium 2.4 mg/dL (2.0-2.9) 07/08/22 05:56 Total Bilirubin 0.40 mg/dL (0.2-1.0) 07/09/22 05:21 AST 23 Units/L (15-37) 07/09/22 05:21 ALT 25 Units/L (12-78) 07/09/22 05:21 Alkaline Phosphatase 68 Units/L (46-116) 07/09/22 05:21 Creatine Kinase 32 Units/L (26-192) 07/07/22 13:33 Troponin I High Sens 32.8 ng/L (4.0-60.0) 07/07/22 13:33 C-Reactive Protein 37.50 mg/L (0-3.0) H 07/09/22 05:21 B-Natriuretic Peptide 609 pg/mL (0-79) H* 07/09/22 05:21 Total Protein 6.0 g/dL (6.4-8.2) L 07/09/22 05:21 Albumin 2.1 g/dL (3.4-5.0) L 07/09/22 05:21 Globulin 3.9 g/dL (2.5-4.5) 07/09/22 05:21 Albumin/Globulin Ratio 0.5 Ratio (1.1-2.1) L 07/09/22 05:21 Stl Occult Blood (IFOB) Positive (NEGATIVE) A 07/09/22 09:35 Stool for White Cells Positive (NEGATIVE) A 07/09/22 09:35 Stl C. diff Tox B Gene Negative (NEGATIVE) 07/09/22 09:35 Stl C. diff [id number] Presumptive negative (NEGATIVE) 07/09/22 09:35 Stool H. pylori Ag Negative (NEGATIVE) 07/09/22 09:35 Cryptosporid parvum Ag Negative (NEGATIVE) 07/09/22 09:35 Giardia lamblia Ag Negative (NEGATIVE) 07/09/22 09:35 Resp Viral Panel (PCR) See scanned report 07/07/22 13:03 - Plan (1) Pneumonia due to COVID-19 virus Status: Acute Plan: SUPPLEMENTAL OXYGEN, RESPIRATORY THERAPY, NORMAL SALINE AT 60, REMDESIVIR 100MG IV DAILY, LEVAQUIN 500MG IV DAILY, SOLU-MEDROL 80MG IV Q8H, LOVENOX 30MG SC BID, ROBITUSSIN DM 10ML QID, TUSSIONEX 5ML Q12H PRN, ASCORBIC ACID 1000MG PO BID, XOPENEX NEB TX TID, PULMICORT NEB TX BID, AND HER HOME MEDICATIONS WERE RESUMED. (2) Hypoxia Status: Acute (3) HTN (hypertension) Status: Chronic Qualifiers: Hypertension type: primary hypertension Qualified Code(s): I10 - Essential (primary) hypertension (4) CAD (coronary artery disease) Status: Chronic Qualifiers: Coronary Disease-Associated Artery/Lesion type: bypass graft [place] vs. transplanted heart: [place] heart (5) Seizure disorder Status: Chronic (6) Hyperlipidemia Status: Chronic Qualifiers: Hyperlipidemia type: mixed hyperlipidemia Qualified Code(s): E78.2 - Mixed hyperlipidemia
[2022-07-09] MEDS: GLUCOPHAGE PO SCH (20:24)
[2022-07-09] MEDS: CRESTOR TAB 10 MG PO SCH (20:25)
[2022-07-09] MEDS: NovoLIN R (or HumuLIN R) SC PRN (20:26)
[2022-07-10] MEDS ORDERED: NS 1/2 1,000 ML IV 1,000 ML IV ONE ×2 (03:51→22:17)
[2022-07-10] MEDS: NS 1/2 1,000 ML IV 1,000 ML IV SCH ×4 (04:00→22:19)
[2022-07-10] MEDS: BUSPAR PO SCH ×3 (05:37→21:55)
[2022-07-10] MEDS: SOLU-Medrol 40 MG VIAL IVP SCH ×3 (05:38→22:01)
[2022-07-10] MEDS: XOPENEX 1.25 MG/3 ML NEBULE NEB SCH ×3 (05:50→20:50)
[2022-07-10 06:14] LABS: BASOPHILS % (AUTO) 0.2 % (0.2-1.0); HEMATOCRIT 34.9 % (36.0-47.0); HEMOGLOBIN 11.5 g/dL (12.0-16.0); LYMPHOCYTES # (AUTO) 0.9 X10^3/uL (1.3-2.9); LYMPHOCYTES % (AUTO) 5.2 % (21.0-51.0); MEAN CORPUSCULAR HEMOGLOBIN 25.3 pg (27.0-34.0); MEAN CORPUSCULAR HGB CONC 32.9 g/dL (33.0-35.0); MEAN PLATELET VOLUME 7.6 fL (7.4-11.0); MONOCYTES # (AUTO) 0.7 x10^3/uL (0.3-0.8); NEUTROPHILS # (AUTO) 15.3 x10^3/uL (2.2-4.8); NEUTROPHILS % (AUTO) 90.6 % (42.0-75.0); RED BLOOD COUNT 4.54 X10^6/uL (3.5-5.4); WHITE BLOOD COUNT 16.9 X10^3/uL (3.6-10.0)
[2022-07-10 06:28] LABS: CALCIUM 8.7 mg/dL (8.5-10.1); CARBON DIOXIDE 27.5 mmol/L (21-32); COR CA(FOR HYPOALB) 10.3 mg/dL (8.5-10.1); CREATININE 2.45 mg/dL (0.55-1.02); TOTAL PROTEIN 5.8 g/dL (6.4-8.2)
[2022-07-10 06:47] LABS: BAND NEUTROPHILS % 1 % (0-10); OVALOCYTES SLIGHT; PLATELET MORPHOLOGY COMMENT NORMAL (NORMAL)
[2022-07-10] MEDS ORDERED: ZESTRIL TAB 20 MG ONE ×2 (07:39→20:29)
[2022-07-10] MEDS ORDERED: GLUCOPHAGE ONE (07:39)
[2022-07-10] MEDS: LOVENOX INJ 30 MG SYR SC SCH ×2 (08:01→22:01)
[2022-07-10] MEDS: REMDESIVIR 100 MG in NS 250 ML IV 250 ML IV SCH (08:03)
[2022-07-10] MEDS: ROBITUSSIN DM PO SCH ×4 (08:03→21:47)
[2022-07-10] MEDS: LANTUS SC SCH (08:03)
[2022-07-10] MEDS: VSL#3 PO SCH (08:04)
[2022-07-10] MEDS: VITAMIN C PO SCH ×2 (08:04→21:54)
[2022-07-10] MEDS: LOPRESSOR TAB 50 MG PO SCH ×2 (08:04→21:47)
[2022-07-10] MEDS: NORVASC TAB 10 MG PO SCH (08:04)
[2022-07-10] MEDS: KEPPRA TAB 500 MG PO SCH (08:04)
[2022-07-10] MEDS: PLAVIX PO SCH (08:05)
[2022-07-10] MEDS: CARAFATE PO SCH ×2 (08:05→21:56)
[2022-07-10] MEDS: PROTONIX TAB 40 MG PO SCH (08:05)
[2022-07-10] MEDS: TRICOR TAB 48 MG PO SCH (08:06)
[2022-07-10] MEDS: ASPIRIN EC 81 MG PO SCH (08:06)
[2022-07-10] MEDS: GLUCOPHAGE PO SCH ×2 (08:06→22:33)
[2022-07-10] MEDS: ZESTRIL TAB 20 MG PO SCH ×2 (08:07→21:54)
[2022-07-10] MEDS ORDERED: REMDESIVIR 100 MG in NS 250 ML IV 250 ML IV SCH (09:00)
[2022-07-10] MEDS: PULMICORT NEB TX 0.5 MG NEB SCH ×2 (09:00→20:50)
--- NOTE | 2022-07-10 09:34 | RAD ---
HISTORYCOVID, SOBSTUDYCHEST x-ray, 1 VIEWCOMPARISONX-ray 07/09/2022FINDINGSSlight worsening of left lower lobe lung Ultracet may be pneumonia. No definite right lung infiltrate is seen. Postoperative changes are seen in the mediastinum. Heart is probably normal in size. No pneumothorax or pleural effusion is seen.IMPRESSIONLikely slight interval worsening of left lower lobe pneumonia.Electronically signed by: Yunier Vidal (Jul 10, 2022 09:33:35)
[2022-07-10] MEDS: LEVAQUIN PREMIX IV 500 MG 500 MG/100 ML BAG IV SCH (09:41)
[2022-07-10] MEDS: NovoLIN R (or HumuLIN R) SC PRN (11:48)
[2022-07-10] MEDS: CRESTOR TAB 10 MG PO SCH (21:47)
[2022-07-10] MEDS: GLUCOPHAGE ONE ×2 (21:49→21:57)
--- NOTE | 2022-07-10 21:50 | PCM.PROG ---
Progress Note - Progress Note for Day of Date of Exam: 07/10/22 - Subjective Subjective: IS CURRENTLY INPATIENT STATUS FOR TREATMENT OF PNEUMONIA DUE TO COVID-19, HYPOXIA, AND DEHYDRATION. RISK FACTORS AND PMH INCLUDE: CVA, SEIZURE DISORDER, CAD, [place], HYPERLIPIDEMIA, HTN, AND CAGB. TODAY, SHE IS ALERT AND ORIENTED, LYING IN BED ON MORNING ROUNDS. PATIENT STATES SHE IS FEELING BETTER. DENIES SHORTNESS OF BREATH WITH GETTING UP. COUGH IS NONPRODUCTIVE, STATE DIARRHEA IS MUCH BETTER. DENIES NAUSEA. ENCOURAGED TO INCREASE PO FLUID INTAKE DUE TO KIDNEY FUNCTION. ENCOURAGED TO NOTIFY STAFF OF CHANGE IN BREATHING. - Past Medical Family Social History Past Med/Fam/Surg Hx: No changes since H&P Allergies: Allergies No Known Allergies Allergy (Verified 07/07/22 13:28) - Review of Systems ROS: No change since H&P - Vital Signs and I&O's Vital Signs: Temperature 97.7 F Pulse Rate [Right Brachial] 80 Pulse Rate 76 Respiratory Rate 20 Blood Pressure [Right Arm] 105/55 O2 Sat by Pulse Oximetry 94 Intake and Output: Intake & Output 07/07/22 07/08/22 07/09/22 07/10/22 23:59 23:59 23:59 23:59 Intake Total 607 / 607 2209 / 2209 1812 / 1812 1786 / 178 Balance 607 / 607 2209 / 2209 181 / 181 178 / 178 - Physical Exam Oriented: Normal Eyes: Normal Ear: Normal Nose: Normal Throat: Normal Respiratory: Generalized, Diminished Cardiovascular: Normal : Normal Auscultation: Bowel Sounds: Normal Tenderness: Normal Skin: Normal Musculoskeletal: Normal Psychiatric: Normal Mood Description: Calm Affect: Normal Speech Pattern: Clear, Appropriate - Laboratory and Diagnostics Result Diagrams: 07/10/22 05:20 07/10/22 05:20 Labs: 07/09/22 09:35 Stool - Final 07/07/22 13:44 Blood Blood Culture - Preliminary 07/07/22 13:33 Blood Blood Culture - Preliminary Laboratory WBC 16.9 X10^3/uL (3.6-10.0) H 07/10/22 05:20 RBC 4.54 X10^6/uL (3.5-5.4) 07/10/22 05:20 Hgb 11.5 g/dL (12.0-16.0) L 07/10/22 05:20 Hct 34.9 % (36.0-47.0) L 07/10/22 05:20 MCV 77.0 fL (80.0-100.0) L 07/10/22 05:20 MCH 25.3 pg (27.0-34.0) L 07/10/22 05:20 MCHC 32.9 g/dL (33.0-35.0) L 07/10/22 05:20 RDW 15.0 % (11.6-16.5) 07/10/22 05:20 Plt Count 332 X10^3/uL (150.0-450.0) 07/10/22 05:20 Plt Count Comment Adequate (ADEQUATE) 07/10/22 05:20 MPV 7.6 fL (7.4-11.0) 07/10/22 05:20 Neut % (Auto) 90.6 % (42.0-75.0) H 07/10/22 05:20 Lymph % (Auto) 5.2 % (21.0-51.0) L 07/10/22 05:20 [place] % (Auto) 4.0 % (0.0-13.0) 07/10/22 05:20 Eos % (Auto) 0.0 % (0.9-2.9) L 07/10/22 05:20 Baso % (Auto) 0.2 % (0.2-1.0) 07/10/22 05:20 Neut # (Auto) 15.3 x10^3/uL (2.2-4.8) H 07/10/22 05:20 Lymph # (Auto) 0.9 X10^3/uL (1.3-2.9) L 07/10/22 05:20 [place] # (Auto) 0.7 x10^3/uL (0.3-0.8) 07/10/22 05:20 Eos # (Auto) 0.0 x10^3/uL (0.0-0.2) 07/10/22 05:20 Baso # (Auto) 0.0 X10^3/uL (0.0-0.1) 07/10/22 05:20 Absolute Nucleated RBC 0.0 /100WBC 07/10/22 05:20 Total Counted 100 07/10/22 05:20 Neutrophils % (Manual) 92 % (39-76) H 07/10/22 05:20 Band Neutrophils % 1 % (0-10) 07/10/22 05:20 Lymphocytes % (Manual) 7 % (13-43) L 07/10/22 05:20 Plt Morphology Comment Normal (NORMAL) 07/10/22 05:20 RBC Morphology Abnormal (NORMAL) A 07/10/22 05:20 Ovalocytes Slight A 07/10/22 05:20 D-Dimer 2.53 ug/ml (0.0-0.57) H 07/07/22 13:33 Sodium 136 mmol/L (136-145) 07/10/22 05:20 Corrected Sodium 137 mmol/L (136-145) 07/10/22 05:20 Potassium 3.9 mmol/L (3.5-5.1) 07/10/22 05:20 Chloride 100 mmol/L (98-107) 07/10/22 05:20 Carbon Dioxide 27.5 mmol/L (21-32) 07/10/22 05:20 BUN 44 mg/dL (7-18) H 07/10/22 05:20 Creatinine 2.45 mg/dL (0.55-1.02) H 07/10/22 05:20 Est GFR (MDRD) Af Amer 25 (>60) L 07/10/22 05:20 Est GFR (MDRD) Non-Af 21 (>60) L 07/10/22 05:20 Glucose 157 mg/dL (65-99) H 07/10/22 05:20 POC Glucose (mg/dL) 95 mg/dL (65-99) 07/10/22 17:11 Calcium 8.7 mg/dL (8.5-10.1) 07/10/22 05:20 Corrected Calcium 10.3 mg/dL (8.5-10.1) H 07/10/22 05:20 Magnesium 2.4 mg/dL (2.0-2.9) 07/08/22 05:56 Total Bilirubin 0.30 mg/dL (0.2-1.0) 07/10/22 05:20 AST 20 Units/L (15-37) 07/10/22 05:20 ALT 26 Units/L (12-78) 07/10/22 05:20 Alkaline Phosphatase 67 Units/L (46-116) 07/10/22 05:20 Creatine Kinase 32 Units/L (26-192) 07/07/22 13:33 Troponin I High Sens 32.8 ng/L (4.0-60.0) 07/07/22 13:33 C-Reactive Protein 23.90 mg/L (0-3.0) H 07/10/22 05:20 B-Natriuretic Peptide 843 pg/mL (0-79) H* 07/10/22 05:20 Total Protein 5.8 g/dL (6.4-8.2) L 07/10/22 05:20 Albumin 2.0 g/dL (3.4-5.0) L 07/10/22 05:20 Globulin 3.8 g/dL (2.5-4.5) 07/10/22 05:20 Albumin/Globulin Ratio 0.5 Ratio (1.1-2.1) L 07/10/22 05:20 Stl Occult Blood (IFOB) Positive (NEGATIVE) A 07/09/22 09:35 Stool for White Cells Positive (NEGATIVE) A 07/09/22 09:35 Stl C. diff Tox B Gene Negative (NEGATIVE) 07/09/22 09:35 Stl C. diff [id number] Presumptive negative (NEGATIVE) 07/09/22 09:35 Stool H. pylori Ag Negative (NEGATIVE) 07/09/22 09:35 Cryptosporid parvum Ag Negative (NEGATIVE) 07/09/22 09:35 Giardia lamblia Ag Negative (NEGATIVE) 07/09/22 09:35 Resp Viral Panel (PCR) See scanned report 07/07/22 13:03 - Plan (1) Acute kidney failure Status: Acute Plan: HOLD METFORMIN. PUSH PO FLUIDS. MONITOR FOR VOLUME OVERLOAD (2) Pneumonia due to COVID-19 virus Status: Acute Plan: SUPPLEMENTAL OXYGEN, RESPIRATORY THERAPY, NORMAL SALINE AT 60, REMDESIVIR 100MG IV DAILY, LEVAQUIN 500MG IV DAILY, SOLU-MEDROL 80MG IV Q8H, LOVENOX 30MG SC BID, ROBITUSSIN DM 10ML QID, TUSSIONEX 5ML Q12H PRN, ASCORBIC ACID 1000MG PO BID, XOPENEX NEB TX TID, PULMICORT NEB TX BID, AND HER HOME MEDICATIONS WERE RESUMED. (3) Hypoxia Status: Resolved (4) HTN (hypertension) Status: Chronic Qualifiers: Hypertension type: primary hypertension Qualified Code(s): I10 - Essential (primary) hypertension Plan: MONITOR BP. CONTINUE HOME MEDICATIONS. (5) CAD (coronary artery disease) Status: Chronic Qualifiers: Coronary Disease-Associated Artery/Lesion type: bypass graft [place] vs. transplanted heart: [place] heart (6) Seizure disorder Status: Chronic
[2022-07-11] MEDS: NS 1/2 1,000 ML IV 1,000 ML IV SCH ×3 (02:39→21:30)
[2022-07-11 05:18] LABS: BASOPHILS % (AUTO) 0.2 % (0.2-1.0); HEMATOCRIT 34.5 % (36.0-47.0); HEMOGLOBIN 11.2 g/dL (12.0-16.0); LYMPHOCYTES # (AUTO) 0.7 X10^3/uL (1.3-2.9); LYMPHOCYTES % (AUTO) 4.4 % (21.0-51.0); MEAN CORPUSCULAR HEMOGLOBIN 25.2 pg (27.0-34.0); MEAN CORPUSCULAR HGB CONC 32.5 g/dL (33.0-35.0); MEAN CORPUSCULAR VOLUME 77.5 fL (80.0-100.0); MEAN PLATELET VOLUME 7.5 fL (7.4-11.0); MONOCYTES # (AUTO) 0.7 x10^3/uL (0.3-0.8); MONOCYTES % (AUTO) 3.8 % (0.0-13.0); NEUTROPHILS # (AUTO) 15.7 x10^3/uL (2.2-4.8); NEUTROPHILS % (AUTO) 91.6 % (42.0-75.0); RED BLOOD COUNT 4.45 X10^6/uL (3.5-5.4); RED CELL DISTRIBUTION WIDTH 15.2 % (11.6-16.5); WHITE BLOOD COUNT 17.2 X10^3/uL (3.6-10.0)
[2022-07-11 05:29] LABS: ALBUMIN 1.9 g/dL (3.4-5.0); CALCIUM 8.5 mg/dL (8.5-10.1); CARBON DIOXIDE 27.9 mmol/L (21-32); COR CA(FOR HYPOALB) 10.2 mg/dL (8.5-10.1); CREATININE 2.49 mg/dL (0.55-1.02); TOTAL PROTEIN 5.4 g/dL (6.4-8.2)
[2022-07-11 05:36] LABS: HYPOCHROMASIA SLIGHT; MICROCYTOSIS SLIGHT; PLATELET MORPHOLOGY COMMENT NORMAL (NORMAL)
[2022-07-11 05:37] LABS: OVALOCYTES PRESENT
[2022-07-11] MEDS: SOLU-Medrol 40 MG VIAL IVP SCH ×3 (05:37→21:35)
[2022-07-11] MEDS: BUSPAR PO SCH ×3 (05:37→21:34)
[2022-07-11] MEDS: XOPENEX 1.25 MG/3 ML NEBULE NEB SCH ×3 (05:48→21:00)
--- NOTE | 2022-07-11 07:05 | RAD ---
HISTORYSOBSTUDYPortable AP chestCOMPARISONDecember 2021FINDINGSSimilar heart size with sternal wires. The right lung is clear. Indistinct linear pulmonary densities are again noted in the left lower lobe without evidence for consolidation. The left upper lung is clear.IMPRESSIONPersistent linear-interstitial densities in the left base consistent with an inflammatory process. This is not chronic; the left base was completely normal on recent exam of July 07.Electronically signed by: ARNAV MCCOY (Jul 11, 2022 07:04:00)
[2022-07-11] MEDS: PULMICORT NEB TX 0.5 MG NEB SCH ×2 (08:14→21:00)
[2022-07-11] MEDS ORDERED: ZESTRIL TAB 20 MG ONE ×2 (09:18→19:25)
[2022-07-11] MEDS: LEVAQUIN PREMIX IV 500 MG 500 MG/100 ML BAG IV SCH (09:25)
[2022-07-11] MEDS: TRICOR TAB 48 MG PO SCH (09:28)
[2022-07-11] MEDS: ROBITUSSIN DM PO SCH ×4 (09:28→21:34)
[2022-07-11] MEDS: VITAMIN C PO SCH ×2 (09:28→21:32)
[2022-07-11] MEDS: PROTONIX TAB 40 MG PO SCH (09:28)
[2022-07-11] MEDS: NORVASC TAB 10 MG PO SCH (09:28)
[2022-07-11] MEDS: VSL#3 PO SCH (09:28)
[2022-07-11] MEDS: KEPPRA TAB 500 MG PO SCH (09:29)
[2022-07-11] MEDS: ZESTRIL TAB 20 MG PO SCH ×2 (09:29→21:33)
[2022-07-11] MEDS: ASPIRIN EC 81 MG PO SCH (09:29)
[2022-07-11] MEDS: LOPRESSOR TAB 50 MG PO SCH ×2 (09:29→21:33)
[2022-07-11] MEDS: PLAVIX PO SCH (09:29)
[2022-07-11] MEDS: LANTUS SC SCH (09:30)
[2022-07-11] MEDS: CARAFATE PO SCH ×2 (09:30→21:35)
[2022-07-11] MEDS: LOVENOX INJ 30 MG SYR SC SCH ×2 (10:52→21:33)
[2022-07-11] MEDS: REMDESIVIR 100 MG in NS 250 ML IV 250 ML IV SCH (10:53)
[2022-07-11] MEDS ORDERED: NS 1/2 1,000 ML IV 1,000 ML IV ONE (19:25)
[2022-07-11] MEDS: CRESTOR TAB 10 MG PO SCH (21:32)
[2022-07-12] MEDS: SOLU-Medrol 40 MG VIAL IVP SCH ×3 (05:20→21:00)
[2022-07-12] MEDS: BUSPAR PO SCH ×3 (05:20→21:03)
[2022-07-12 06:00] LABS: BASOPHILS % (AUTO) 0.1 % (0.2-1.0); HEMATOCRIT 37.6 % (36.0-47.0); HEMOGLOBIN 12.1 g/dL (12.0-16.0); LYMPHOCYTES # (AUTO) 0.6 X10^3/uL (1.3-2.9); LYMPHOCYTES % (AUTO) 3.7 % (21.0-51.0); MEAN CORPUSCULAR HEMOGLOBIN 24.8 pg (27.0-34.0); MEAN CORPUSCULAR HGB CONC 32.2 g/dL (33.0-35.0); MEAN PLATELET VOLUME 7.5 fL (7.4-11.0); MONOCYTES # (AUTO) 0.7 x10^3/uL (0.3-0.8); MONOCYTES % (AUTO) 4.3 % (0.0-13.0); NEUTROPHILS # (AUTO) 15.7 x10^3/uL (2.2-4.8); NEUTROPHILS % (AUTO) 91.9 % (42.0-75.0); RED BLOOD COUNT 4.88 X10^6/uL (3.5-5.4); RED CELL DISTRIBUTION WIDTH 15.8 % (11.6-16.5); WHITE BLOOD COUNT 17.1 X10^3/uL (3.6-10.0)
[2022-07-12 06:04] LABS: ALBUMIN 2.1 g/dL (3.4-5.0); CALCIUM 8.5 mg/dL (8.5-10.1); CARBON DIOXIDE 26.9 mmol/L (21-32); CREATININE 2.35 mg/dL (0.55-1.02); TOTAL PROTEIN 5.5 g/dL (6.4-8.2)
[2022-07-12 06:25] LABS: PLATELET MORPHOLOGY COMMENT NORMAL (NORMAL)
[2022-07-12] MEDS: XOPENEX 1.25 MG/3 ML NEBULE NEB SCH ×3 (06:33→20:05)
[2022-07-12] MEDS: NS 1/2 1,000 ML IV 1,000 ML IV SCH ×3 (06:55→21:50)
--- NOTE | 2022-07-12 07:24 | RAD ---
HISTORYCOVID-19 SOBSTUDYChest PA and lateral viewsCOMPARISONDecember 2021FINDINGSHeart size remains normal with clear right lung. The left lower heart border remains indistinct and obscured, consistent with lingular process. There is no additional consolidation, or pleural fluid developing.IMPRESSIONNo change since 1 day prior.Electronically signed by: ARNAV MCCOY (Jul 12, 2022 07:22:58)
[2022-07-12] MEDS ORDERED: ZESTRIL TAB 20 MG ONE ×2 (08:42→20:29)
[2022-07-12] MEDS: PULMICORT NEB TX 0.5 MG NEB SCH ×2 (08:45→20:05)
[2022-07-12] MEDS: VSL#3 PO SCH (09:35)
[2022-07-12] MEDS: KEPPRA TAB 500 MG PO SCH (09:36)
[2022-07-12] MEDS: ZESTRIL TAB 20 MG PO SCH ×2 (09:36→21:02)
[2022-07-12] MEDS: TRICOR TAB 48 MG PO SCH (09:36)
[2022-07-12] MEDS: LOPRESSOR TAB 50 MG PO SCH ×2 (09:37→21:01)
[2022-07-12] MEDS: NORVASC TAB 10 MG PO SCH (09:37)
[2022-07-12] MEDS: VITAMIN C PO SCH ×2 (09:38→21:01)
[2022-07-12] MEDS: PROTONIX TAB 40 MG PO SCH (09:40)
[2022-07-12] MEDS: ASPIRIN EC 81 MG PO SCH (09:40)
[2022-07-12] MEDS: ROBITUSSIN DM PO SCH ×4 (09:42→21:01)
[2022-07-12] MEDS: CARAFATE PO SCH ×2 (09:42→21:03)
[2022-07-12] MEDS: LANTUS SC SCH (09:45)
[2022-07-12] MEDS: PLAVIX PO SCH (09:48)
[2022-07-12] MEDS: LOVENOX INJ 30 MG SYR SC SCH ×2 (09:49→21:49)
[2022-07-12] MEDS: LEVAQUIN PREMIX IV 500 MG 500 MG/100 ML BAG IV SCH (09:52)
[2022-07-12] MEDS: NovoLIN R (or HumuLIN R) SC PRN (12:22)
[2022-07-12] MEDS: K-DUR TAB 20 MEQ PO PRN (13:57)
[2022-07-12] MEDS ORDERED: NS 1/2 1,000 ML IV 1,000 ML IV ONE (16:19)
[2022-07-12] MEDS: MAGNESIUM SULFATE 1 GRAM/100 mL PREMIX 1 G/100 ML BAG IV PRN ×2 (20:59→23:44)
[2022-07-12] MEDS: CRESTOR TAB 10 MG PO SCH (21:00)
[2022-07-12 23:06] LABS: HEMATOCRIT 33.1 % (36.0-47.0); HEMOGLOBIN 10.9 g/dL (12.0-16.0)
[2022-07-12] MEDS ORDERED: NS 1,000 ML IV 1,000 ML IV ONE (23:38)
[2022-07-13] MEDS: XOPENEX 1.25 MG/3 ML NEBULE NEB SCH ×3 (05:15→20:35)
[2022-07-13 05:30] LABS: BASOPHILS % (AUTO) 0.1 % (0.2-1.0); HEMATOCRIT 27.3 % (36.0-47.0); LYMPHOCYTES # (AUTO) 0.7 X10^3/uL (1.3-2.9); MEAN CORPUSCULAR HEMOGLOBIN 25.2 pg (27.0-34.0); MEAN CORPUSCULAR HGB CONC 33.1 g/dL (33.0-35.0); MEAN CORPUSCULAR VOLUME 76.2 fL (80.0-100.0); MEAN PLATELET VOLUME 7.7 fL (7.4-11.0); MONOCYTES # (AUTO) 0.7 x10^3/uL (0.3-0.8); NEUTROPHILS # (AUTO) 15.9 x10^3/uL (2.2-4.8); NEUTROPHILS % (AUTO) 91.9 % (42.0-75.0); RED BLOOD COUNT 3.58 X10^6/uL (3.5-5.4); RED CELL DISTRIBUTION WIDTH 15.1 % (11.6-16.5); WHITE BLOOD COUNT 17.4 X10^3/uL (3.6-10.0)
[2022-07-13] MEDS: SOLU-Medrol 40 MG VIAL IVP SCH ×3 (05:34→22:11)
[2022-07-13] MEDS: BUSPAR PO SCH ×3 (05:35→22:11)
[2022-07-13 05:42] LABS: HYPOCHROMASIA SLIGHT; MICROCYTOSIS SLIGHT; PLATELET MORPHOLOGY COMMENT NORMAL (NORMAL)
[2022-07-13 05:45] LABS: ALBUMIN 1.7 g/dL (3.4-5.0); CARBON DIOXIDE 23.6 mmol/L (21-32); COR CA(FOR HYPOALB) 9.8 mg/dL (8.5-10.1); CREATININE 2.2 mg/dL (0.55-1.02); MAGNESIUM 2.1 mg/dL (2.0-2.9); TOTAL PROTEIN 4.3 g/dL (6.4-8.2)
[2022-07-13] MEDS ORDERED: ZESTRIL TAB 20 MG ONE (07:52)
--- NOTE | 2022-07-13 08:36 | RAD ---
HISTORYPNEUMONIA, COVID 19STUDYCHEST, 1 [id number]/01/2023FINDINGSThe cardiomediastinal silhouette is stable. Similar post sternotomy and post CABG changes. Loop recorder overlying the left heart. Similar possible opacities in the lingula. No pneumothorax or effusion. The bony thorax appears intact.IMPRESSIONStable chest without acute change.Electronically signed by: JV MAYBERRY (Jul 13, 2022 08:34:22)
[2022-07-13] MEDS: PULMICORT NEB TX 0.5 MG NEB SCH ×2 (08:48→20:35)
[2022-07-13] MEDS: ROBITUSSIN DM PO SCH ×4 (09:22→20:40)
[2022-07-13] MEDS: KEPPRA TAB 500 MG PO SCH (09:26)
[2022-07-13] MEDS: VSL#3 PO SCH (09:26)
[2022-07-13] MEDS: VITAMIN C PO SCH ×2 (09:26→20:39)
[2022-07-13] MEDS: PROTONIX TAB 40 MG PO SCH (09:26)
[2022-07-13] MEDS: TRICOR TAB 48 MG PO SCH (09:27)
[2022-07-13] MEDS: CARAFATE PO SCH ×2 (09:27→20:38)
[2022-07-13] MEDS: LANTUS SC SCH (09:28)
[2022-07-13] MEDS ORDERED: NS 1/2 1,000 ML IV 1,000 ML IV ONE (10:44)
[2022-07-13] MEDS: NS 1/2 1,000 ML IV 1,000 ML IV SCH (10:46)
[2022-07-13] MEDS: LEVAQUIN PREMIX IV 750 MG 750 MG/150 ML BAG IV SCH (10:47)
[2022-07-13] MEDS: LOVENOX INJ 30 MG SYR SC SCH (10:50)
[2022-07-13] MEDS: NovoLIN R (or HumuLIN R) SC PRN ×2 (12:13→16:38)
[2022-07-13] MEDS: ZESTRIL TAB 20 MG PO SCH ×2 (12:44→20:44)
[2022-07-13] MEDS: ASPIRIN EC 81 MG PO SCH (12:44)
[2022-07-13] MEDS: PLAVIX PO SCH (12:45)
[2022-07-13] MEDS: NORVASC TAB 10 MG PO SCH (12:45)
[2022-07-13] MEDS: LOPRESSOR TAB 50 MG PO SCH ×2 (13:55→20:43)
[2022-07-13] MEDS: CRESTOR TAB 10 MG PO SCH (20:39)
[2022-07-14] MEDS: NS 1/2 1,000 ML IV 1,000 ML IV SCH ×2 (00:27→13:28)
[2022-07-14] MEDS: XOPENEX 1.25 MG/3 ML NEBULE NEB SCH ×4 (05:04→20:50)
[2022-07-14] MEDS: SOLU-Medrol 40 MG VIAL IVP SCH ×3 (05:33→21:55)
[2022-07-14] MEDS: BUSPAR PO SCH ×3 (05:34→21:58)
[2022-07-14 06:00] LABS: BASOPHILS % (AUTO) 0.1 % (0.2-1.0); HEMATOCRIT 26.1 % (36.0-47.0); HEMOGLOBIN 8.7 g/dL (12.0-16.0); LYMPHOCYTES # (AUTO) 0.5 X10^3/uL (1.3-2.9); MEAN CORPUSCULAR HEMOGLOBIN 25.4 pg (27.0-34.0); MEAN CORPUSCULAR HGB CONC 33.2 g/dL (33.0-35.0); MEAN CORPUSCULAR VOLUME 76.5 fL (80.0-100.0); MEAN PLATELET VOLUME 7.9 fL (7.4-11.0); MONOCYTES # (AUTO) 0.9 x10^3/uL (0.3-0.8); MONOCYTES % (AUTO) 5.4 % (0.0-13.0); NEUTROPHILS # (AUTO) 15.3 x10^3/uL (2.2-4.8); NEUTROPHILS % (AUTO) 91.5 % (42.0-75.0); RED BLOOD COUNT 3.42 X10^6/uL (3.5-5.4); RED CELL DISTRIBUTION WIDTH 15.4 % (11.6-16.5); WHITE BLOOD COUNT 16.7 X10^3/uL (3.6-10.0)
[2022-07-14 06:14] LABS: ALBUMIN 1.9 g/dL (3.4-5.0); CALCIUM 8.1 mg/dL (8.5-10.1); CARBON DIOXIDE 24.2 mmol/L (21-32); COR CA(FOR HYPOALB) 9.8 mg/dL (8.5-10.1); CREATININE 2.29 mg/dL (0.55-1.02); TOTAL PROTEIN 4.6 g/dL (6.4-8.2)
[2022-07-14 06:30] LABS: PLATELET MORPHOLOGY COMMENT NORMAL (NORMAL)
[2022-07-14 06:31] LABS: BURR CELLS SLIGHT; OVALOCYTES SLIGHT
[2022-07-14] MEDS: PULMICORT NEB TX 0.5 MG NEB SCH ×2 (08:50→20:50)
[2022-07-14] MEDS ORDERED: ZESTRIL TAB 20 MG ONE (08:56)
[2022-07-14] MEDS: ROBITUSSIN DM PO SCH ×4 (09:04→21:56)
[2022-07-14] MEDS: VITAMIN C PO SCH ×2 (09:05→21:55)
[2022-07-14] MEDS: VSL#3 PO SCH (09:05)
[2022-07-14] MEDS: KEPPRA TAB 500 MG PO SCH (09:06)
[2022-07-14] MEDS: CARAFATE PO SCH ×2 (09:06→21:57)
[2022-07-14] MEDS: PROTONIX TAB 40 MG PO SCH (09:07)
[2022-07-14] MEDS: TRICOR TAB 48 MG PO SCH (09:07)
[2022-07-14] MEDS: LANTUS SC SCH (09:09)
[2022-07-14] MEDS: ZESTRIL TAB 20 MG PO SCH ×2 (09:55→22:01)
[2022-07-14] MEDS: LOPRESSOR TAB 50 MG PO SCH ×2 (09:55→21:56)
[2022-07-14] MEDS: NORVASC TAB 10 MG PO SCH (09:55)
[2022-07-14] MEDS: PLAVIX PO SCH (09:59)
[2022-07-14] MEDS: ASPIRIN EC 81 MG PO SCH (09:59)
[2022-07-14] MEDS: NovoLIN R (or HumuLIN R) SC PRN ×2 (11:45→16:59)
--- NOTE | 2022-07-14 13:22 | PCM.PROG ---
Progress Note - Progress Note for Day of Date of Exam: 07/13/22 - Subjective Subjective: IS CURRENTLY INPATIENT STATUS FOR TREATMENT OF PNEUMONIA DUE TO COVID-19, HYPOXIA, AND DEHYDRATION. RISK FACTORS AND PMH INCLUDE: CVA, SEIZURE DISORDER, CAD, CT, HYPERLIPIDEMIA, HTN, AND CAGB. TODAY, SHE IS ALERT AND ORIENTED, LYING IN BED ON MORNING ROUNDS. SHE CONTINUES TO COMPLAIN OF AN INTERMITTENT, NON-PRODUCTIVE COUGH, SHORTNESS OF BREATH, AND GENERALIZED WEAKNESS TODAY. NURSING STAFF REPORTS THAT PATIENTS IV WAS PULLED OUT LAST NIGHT AND PATIENT HAD SIGNIFICANT BLEEDING. SHE HAS BEEN ON ASPIRIN, PLAVIX, AND LOVENOX. PATIENT HAS BEEN HYPOTENSIVE SINCE THEN. ON EXAMINATION THIS MORNING, HEART IS REGULAR IN RATE AND RHYTHM. BILATERAL LUNGS ARE NOTED WITH DIMINISHED LUNG SOUNDS THROUGHOUT. ABDOMEN IS ROUND, SOFT, AND NON-TENDER WITH NORMAL BOWEL SOUNDS NOTED IN ALL QUADRANTS. HER VITALS THIS MORNING ARE: 98.2-54-20-97%-116/55. SHE IS CURRENTLY UTILIZING OXYGEN VIA NASAL CANNULA AT 2 LPM. LABS WERE OBTAINED. WBC 17.4, RBC 3.58, HGB 9.0, HCT 27.3, PLT COUNT 277, SODIUM 136, POTASSIUM 3.7, CHLORIDE 104, BUN 49, CREATININE 2.20, GLUCOSE 156, CALCIUM 8.0, AST 20, ALT 16, ALK PHOS 45, CRP 7.00, BNP 218, TOTAL PROTEIN 4.3, ALBUMIN 1.7. A RESPIRATORY VIRAL PANEL REVEALED GROWTH OF ENTEROBACTER SPP, E.COLI, KLEBSIELLA SPP, AND STREPTOCOCCUS PNEUMONIAE. BLOOD AND STOOL CULTURES ARE NEGATIVE. A CHEST XRAY WAS REPEATED THIS MORNING AND REVEALED: The cardiomediastinal silhouette is stable. Similar post sternotomy and post CABG changes. Loop recorder overlying the left heart. Similar possible opacities in the lingula. No pneumothorax or effusion. The bony thorax appears intact. SHE IS CURRENTLY RECEIVING NORMAL SALINE AT 60, REMDESIVIR 100MG IV DAILY, IV LEVAQU IN, SOLU-MEDROL 80MG IV Q8H, LOVENOX 30MG SC BID, ROBITUSSIN DM 10ML QID, TUSSIONEX 5ML Q12H PRN, ASCORBIC ACID 1000MG PO BID, XOPENEX NEB TX TID, PULMICORT NEB TX BID, AND HER HOME MEDICATIONS WERE RESUMED. WE WILL DECREASE SOLU-MEDROL TO 40MG IV Q8H. WE WILL DECREASE HER METOPROLOL TO 50MG BID. OT HERWISE, WE WILL FOLLOW-UP WITH AM LABS AND CHEST XRAY AND CONTINUE TO MONITOR. TIME SPENT ON CLINICAL ASSESSMENT, REVIWING LABS AND IMAGING, DECISION MAKING, AND DOCUMENTATION GREATER THAN 45 MINUTES. - Past Medical Family Social History Past Med/Fam/Surg Hx: No changes since H&P Allergies: Allergies No Known Allergies Allergy (Verified 07/07/22 13:28) - Review of Systems ROS: No change since H&P - Vital Signs and I&O's Vital Signs: Temperature 98.5 F Pulse Rate [Right Brachial] 73 Pulse Rate 76 Respiratory Rate 20 Blood Pressure [Right Calf] 100/54 Blood Pressure [Left Calf] 92/54 Blood Pressure [Left Arm] 129/65 Blood Pressure [Right Arm] 110/60 O2 Sat by Pulse Oximetry 93 Intake and Output: Intake & Output 07/12/22 07/13/22 07/14/22 07/15/22 11:59 11:59 11:59 11:59 Intake Total 3518 / 3518 3669 / 3669 1962 Balance 3518 / 3518 3669 / 3669 1962 - Physical Exam Oriented: Normal Eyes: Normal Ear: Normal Nose: Normal Throat: Normal Respiratory: Generalized, Diminished Cardiovascular: Normal : Normal Auscultation: Bowel Sounds: Normal Palpation: Normal Tenderness: Normal Skin: Normal Musculoskeletal: Normal Psychiatric: Normal Mood Description: Calm Affect: Normal Speech Pattern: Clear, Appropriate - Laboratory and Diagnostics Result Diagrams: 07/14/22 05:30 07/14/22 05:30 Labs: 07/07/22 13:44 Blood Blood Culture - Final 07/07/22 13:33 Blood Blood Culture - Final 07/09/22 09:35 Stool Stool Culture - Final 07/09/22 09:35 Stool - Final Laboratory WBC 16.7 X10^3/uL (3.6-10.0) H 07/14/22 05:30 RBC 3.42 X10^6/uL (3.5-5.4) L 07/14/22 05:30 Hgb 8.7 g/dL (12.0-16.0) L 07/14/22 05:30 Hct 26.1 % (36.0-47.0) L 07/14/22 05:30 MCV 76.5 fL (80.0-100.0) L 07/14/22 05:30 MCH 25.4 pg (27.0-34.0) L 07/14/22 05:30 MCHC 33.2 g/dL (33.0-35.0) 07/14/22 05:30 RDW 15.4 % (11.6-16.5) 07/14/22 05:30 Plt Count 241 X10^3/uL (150.0-450.0) 07/14/22 05:30 Plt Count Comment Adequate (ADEQUATE) 07/14/22 05:30 MPV 7.9 fL (7.4-11.0) 07/14/22 05:30 Neut % (Auto) 91.5 % (42.0-75.0) H 07/14/22 05:30 Lymph % (Auto) 3.0 % (21.0-51.0) L 07/14/22 05:30 [place] % (Auto) 5.4 % (0.0-13.0) 07/14/22 05:30 Eos % (Auto) 0.0 % (0.9-2.9) L 07/14/22 05:30 Baso % (Auto) 0.1 % (0.2-1.0) L 07/14/22 05:30 Neut # (Auto) 15.3 x10^3/uL (2.2-4.8) H 07/14/22 05:30 Lymph # (Auto) 0.5 X10^3/uL (1.3-2.9) L 07/14/22 05:30 [place] # (Auto) 0.9 x10^3/uL (0.3-0.8) H 07/14/22 05:30 Eos # (Auto) 0.0 x10^3/uL (0.0-0.2) 07/14/22 05:30 Baso # (Auto) 0.0 X10^3/uL (0.0-0.1) 07/14/22 05:30 Absolute Nucleated RBC 0.0 /100WBC 07/14/22 05:30 Total Counted 100 07/14/22 05:30 Neutrophils % (Manual) 98 % (39-76) H 07/14/22 05:30 Band Neutrophils % 1 % (0-10) 07/10/22 05:20 Lymphocytes % (Manual) 2 % (13-43) L 07/14/22 05:30 Monocytes % (Manual) 1 % (4-9) L 07/13/22 05:11 Plt Morphology Comment Normal (NORMAL) 07/14/22 05:30 RBC Morphology Abnormal (NORMAL) A 07/14/22 05:30 Hypochromasia Slight A 07/13/22 05:11 Microcytosis Slight A 07/13/22 05:11 Ovalocytes Slight A 07/14/22 05:30 [place] Cells Slight A 07/14/22 05:30 D-Dimer 2.53 ug/ml (0.0-0.57) H 07/07/22 13:33 Sodium 136 mmol/L (136-145) 07/14/22 05:30 Corrected Sodium 137 mmol/L (136-145) 07/14/22 05:30 Potassium 4.0 mmol/L (3.5-5.1) 07/14/22 05:30 Chloride 103 mmol/L (98-107) 07/14/22 05:30 Carbon Dioxide 24.2 mmol/L (21-32) 07/14/22 05:30 BUN 48 mg/dL (7-18) H 07/14/22 05:30 Creatinine 2.29 mg/dL (0.55-1.02) H 07/14/22 05:30 Est GFR (MDRD) Af Amer 27 (>60) L 07/14/22 05:30 Est GFR (MDRD) Non-Af 23 (>60) L 07/14/22 05:30 Glucose 143 mg/dL (65-99) H 07/14/22 05:30 POC Glucose (mg/dL) 224 mg/dL (65-99) H 07/14/22 11:35 Calcium 8.1 mg/dL (8.5-10.1) L 07/14/22 05:30 Corrected Calcium 9.8 mg/dL (8.5-10.1) 07/14/22 05:30 Magnesium 2.1 mg/dL (2.0-2.9) 07/13/22 05:11 Total Bilirubin 0.30 mg/dL (0.2-1.0) 07/14/22 05:30 AST 18 Units/L (15-37) 07/14/22 05:30 ALT 18 Units/L (12-78) 07/14/22 05:30 Alkaline Phosphatase 47 Units/L (46-116) 07/14/22 05:30 Creatine Kinase 32 Units/L (26-192) 07/07/22 13:33 Troponin I High Sens 32.8 ng/L (4.0-60.0) 07/07/22 13:33 C-Reactive Protein 5.10 mg/L (0-3.0) H 07/14/22 05:30 B-Natriuretic Peptide 94.7 pg/mL (0-79) H 07/14/22 05:30 Total Protein 4.6 g/dL (6.4-8.2) L 07/14/22 05:30 Albumin 1.9 g/dL (3.4-5.0) L 07/14/22 05:30 Globulin 2.7 g/dL (2.5-4.5) 07/14/22 05:30 Albumin/Globulin Ratio 0.7 Ratio (1.1-2.1) L 07/14/22 05:30 Stl Occult Blood (IFOB) Positive (NEGATIVE) A 07/09/22 09:35 Stool for White Cells Positive (NEGATIVE) A 07/09/22 09:35 Stl C. diff Tox B Gene Negative (NEGATIVE) 07/09/22 09:35 Stl C. diff [id number] Presumptive negative (NEGATIVE) 07/09/22 09:35 Stool H. pylori Ag Negative (NEGATIVE) 07/09/22 09:35 Cryptosporid parvum Ag Negative (NEGATIVE) 07/09/22 09:35 Giardia lamblia Ag Negative (NEGATIVE) 07/09/22 09:35 Resp Viral Panel (PCR) See scanned report 07/07/22 13:03 - Plan (1) Pneumonia due to COVID-19 virus Status: Acute Plan: SUPPLEMENTAL OXYGEN, RESPIRATORY THERAPY, NORMAL SALINE AT 60, LEVAQUIN 750MG IV Q48H, SOLU-MEDROL 40MG IV Q8H, ROBITUSSIN DM 10ML QID, TUSSIONEX 5ML Q12H PRN, ASCORBIC ACID 1000MG PO BID, XOPENEX NEB TX TID, PULMICORT NEB TX BID, AND HER HOME MEDICATIONS WERE RESUMED. (2) Hypoxia Status: Resolved (3) Anemia Status: Acute Qualifiers: Anemia type: unspecified type Qualified Code(s): D64.9 - Anemia, unspecified Plan: MONITOR H&H (4) HTN (hypertension) Status: Chronic Qualifiers: Hypertension type: primary hypertension Qualified Code(s): I10 - Essential (primary) hypertension Plan: HOLD BP MEDS AT THIS TIME DUE TO HYPOTENSION (5) CAD (coronary artery disease) Status: Chronic Qualifiers: Coronary Disease-Associated Artery/Lesion type: bypass graft [place] vs. transplanted heart: [place] heart (6) Seizure disorder Status: Chronic (7) Hyperlipidemia Status: Chronic Qualifiers: Hyperlipidemia type: mixed hyperlipidemia Qualified Code(s): E78.2 - Mixed hyperlipidemia
[2022-07-14] MEDS ORDERED: NS 1/2 1,000 ML IV 1,000 ML IV ONE (13:25)
--- NOTE | 2022-07-14 13:31 | PCM.PROG ---
Progress Note - Progress Note for Day of Date of Exam: 07/14/22 - Subjective Subjective: IS CURRENTLY INPATIENT STATUS FOR TREATMENT OF PNEUMONIA DUE TO COVID-19, HYPOXIA, DEHYDRATION, AND ANEMIA. RISK FACTORS AND PMH INCLUDE: CVA, SEIZURE DISORDER, CAD, [place], HYPERLIPIDEMIA, HTN, AND CAGB. TODAY, SHE IS ALERT AND ORIENTED, LYING IN BED ON MORNING ROUNDS. SHE CONTINUES TO COMPLAIN OF AN INTERMITTENT NON-PRODUCTIVE COUGH, SHORTNESS OF BREATH, AND GENERALIZED WEAKNESS TODAY. SHE CONTINUES TO BE HYPOTENSIVE THIS MORNING. ON EXAMINATION THIS MORNING, HEART IS REGULAR IN RATE AND RHYTHM. BILATERAL LUNGS ARE NOTED WITH DIMINISHED LUNG SOUNDS THROUGHOUT. ABDOMEN IS ROUND, SOFT, AND NON-TENDER WITH NORMAL BOWEL SOUNDS NOTED IN ALL QUADRANTS. HER VITALS THIS MORNING ARE: 98.4-65-20-92%-90/51. SHE IS CURRENTLY UTILIZING OXYGEN VIA NASAL CANNULA AT 2 LPM. LABS WERE OBTAINED. WBC 16.7, RBC 3.42, HGB 8.7, HCT 26.1, PLT COUNT 241, SODIUM 136, POTASSIUM 4.0, CHLORIDE 103, BUN 48, CREATININE 2.29, GLUCOSE 143, CALCIUM 8.1, AST 18, ALT 18, ALK PHOS 47, CRP 5.10, BNP 94.7, TOTAL PROTEIN 4.6, ALBUMIN 1.9. A RESPIRATORY VIRAL PANEL REVEALED GROWTH OF ENTEROBACTER SPP, E.COLI, KLEBSIELLA SPP, AND STREPTOCOCCUS PNEUMONIAE. BLOOD AND STOOL CULTURES ARE NEGATIVE. SHE IS CURRENTLY RECEIVING NORMAL SALINE AT 60, REMDESIVIR 100MG IV DAILY, LEVAQUIN 750MG IV Q48H, SOLU-MEDROL 40MG IV Q8H, LOVENOX 30MG SC BID, ROBITUSSIN DM 10ML QID, TUSSIONEX 5ML Q12H PRN, ASCORBIC ACID 1000MG PO BID, XOPENEX NEB TX TID, PULMICORT NEB TX BID, THE POTASSIUM AND MAGNESIUM PROTOCOLS, AND HER HOME MEDICATIONS WERE RESUMED. WE WILL HOLD HER BLOOD PRESSURE MEDICATIONS THIS MORNING AND REASSESS LATER IN THE AFTERNOON. OTHERWISE, WE WILL FOLLOW-UP WITH AM LABS AND CHEST XRAY AND CONTINUE TO MONITOR. TIME SPENT ON CLINICAL ASSESSMENT, REVIWING LABS AND IMAGING, DECISION MAKING, AND DOCUMENTA TION GREATER THAN 45 MINUTES. - Past Medical Family Social History Past Med/Fam/Surg Hx: No changes since H&P Allergies: Allergies No Known Allergies Allergy (Verified 07/07/22 13:28) - Review of Systems ROS: No change since H&P - Vital Signs and I&O's Vital Signs: Temperature 98.5 F Pulse Rate [Right Brachial] 73 Pulse Rate 76 Respiratory Rate 20 Blood Pressure [Right Calf] 100/54 Blood Pressure [Left Calf] 92/54 Blood Pressure [Left Arm] 129/65 Blood Pressure [Right Arm] 110/60 O2 Sat by Pulse Oximetry 93 Intake and Output: Intake & Output 07/12/22 07/13/22 07/14/22 07/15/22 11:59 11:59 11:59 11:59 Intake Total 3518 / 3518 3669 / 3669 1962 Balance 3518 / 3518 3669 / 3669 1962 - Physical Exam Oriented: Normal Eyes: Normal Ear: Normal Nose: Normal Throat: Normal Respiratory: Generalized, Diminished Cardiovascular: Normal : Normal Auscultation: Bowel Sounds: Normal Palpation: Normal Tenderness: Normal Skin: Normal Musculoskeletal: Normal Psychiatric: Normal Mood Description: Calm Affect: Normal Speech Pattern: Clear, Appropriate - Laboratory and Diagnostics Result Diagrams: 07/14/22 05:30 07/14/22 05:30 Labs: 07/07/22 13:44 Blood Blood Culture - Final 07/07/22 13:33 Blood Blood Culture - Final 07/09/22 09:35 Stool Stool Culture - Final 07/09/22 09:35 Stool - Final Laboratory WBC 16.7 X10^3/uL (3.6-10.0) H 07/14/22 05:30 RBC 3.42 X10^6/uL (3.5-5.4) L 07/14/22 05:30 Hgb 8.7 g/dL (12.0-16.0) L 07/14/22 05:30 Hct 26.1 % (36.0-47.0) L 07/14/22 05:30 MCV 76.5 fL (80.0-100.0) L 07/14/22 05:30 MCH 25.4 pg (27.0-34.0) L 07/14/22 05:30 MCHC 33.2 g/dL (33.0-35.0) 07/14/22 05:30 RDW 15.4 % (11.6-16.5) 07/14/22 05:30 Plt Count 241 X10^3/uL (150.0-450.0) 07/14/22 05:30 Plt Count Comment Adequate (ADEQUATE) 07/14/22 05:30 MPV 7.9 fL (7.4-11.0) 07/14/22 05:30 Neut % (Auto) 91.5 % (42.0-75.0) H 07/14/22 05:30 Lymph % (Auto) 3.0 % (21.0-51.0) L 07/14/22 05:30 [place] % (Auto) 5.4 % (0.0-13.0) 07/14/22 05:30 Eos % (Auto) 0.0 % (0.9-2.9) L 07/14/22 05:30 Baso % (Auto) 0.1 % (0.2-1.0) L 07/14/22 05:30 Neut # (Auto) 15.3 x10^3/uL (2.2-4.8) H 07/14/22 05:30 Lymph # (Auto) 0.5 X10^3/uL (1.3-2.9) L 07/14/22 05:30 [place] # (Auto) 0.9 x10^3/uL (0.3-0.8) H 07/14/22 05:30 Eos # (Auto) 0.0 x10^3/uL (0.0-0.2) 07/14/22 05:30 Baso # (Auto) 0.0 X10^3/uL (0.0-0.1) 07/14/22 05:30 Absolute Nucleated RBC 0.0 /100WBC 07/14/22 05:30 Total Counted 100 07/14/22 05:30 Neutrophils % (Manual) 98 % (39-76) H 07/14/22 05:30 Band Neutrophils % 1 % (0-10) 07/10/22 05:20 Lymphocytes % (Manual) 2 % (13-43) L 07/14/22 05:30 Monocytes % (Manual) 1 % (4-9) L 07/13/22 05:11 Plt Morphology Comment Normal (NORMAL) 07/14/22 05:30 RBC Morphology Abnormal (NORMAL) A 07/14/22 05:30 Hypochromasia Slight A 07/13/22 05:11 Microcytosis Slight A 07/13/22 05:11 Ovalocytes Slight A 07/14/22 05:30 [place] Cells Slight A 07/14/22 05:30 D-Dimer 2.53 ug/ml (0.0-0.57) H 07/07/22 13:33 Sodium 136 mmol/L (136-145) 07/14/22 05:30 Corrected Sodium 137 mmol/L (136-145) 07/14/22 05:30 Potassium 4.0 mmol/L (3.5-5.1) 07/14/22 05:30 Chloride 103 mmol/L (98-107) 07/14/22 05:30 Carbon Dioxide 24.2 mmol/L (21-32) 07/14/22 05:30 BUN 48 mg/dL (7-18) H 07/14/22 05:30 Creatinine 2.29 mg/dL (0.55-1.02) H 07/14/22 05:30 Est GFR (MDRD) Af Amer 27 (>60) L 07/14/22 05:30 Est GFR (MDRD) Non-Af 23 (>60) L 07/14/22 05:30 Glucose 143 mg/dL (65-99) H 07/14/22 05:30 POC Glucose (mg/dL) 224 mg/dL (65-99) H 07/14/22 11:35 Calcium 8.1 mg/dL (8.5-10.1) L 07/14/22 05:30 Corrected Calcium 9.8 mg/dL (8.5-10.1) 07/14/22 05:30 Magnesium 2.1 mg/dL (2.0-2.9) 07/13/22 05:11 Total Bilirubin 0.30 mg/dL (0.2-1.0) 07/14/22 05:30 AST 18 Units/L (15-37) 07/14/22 05:30 ALT 18 Units/L (12-78) 07/14/22 05:30 Alkaline Phosphatase 47 Units/L (46-116) 07/14/22 05:30 Creatine Kinase 32 Units/L (26-192) 07/07/22 13:33 Troponin I High Sens 32.8 ng/L (4.0-60.0) 07/07/22 13:33 C-Reactive Protein 5.10 mg/L (0-3.0) H 07/14/22 05:30 B-Natriuretic Peptide 94.7 pg/mL (0-79) H 07/14/22 05:30 Total Protein 4.6 g/dL (6.4-8.2) L 07/14/22 05:30 Albumin 1.9 g/dL (3.4-5.0) L 07/14/22 05:30 Globulin 2.7 g/dL (2.5-4.5) 07/14/22 05:30 Albumin/Globulin Ratio 0.7 Ratio (1.1-2.1) L 07/14/22 05:30 Stl Occult Blood (IFOB) Positive (NEGATIVE) A 07/09/22 09:35 Stool for White Cells Positive (NEGATIVE) A 07/09/22 09:35 Stl C. diff Tox B Gene Negative (NEGATIVE) 07/09/22 09:35 Stl C. diff [id number] Presumptive negative (NEGATIVE) 07/09/22 09:35 Stool H. pylori Ag Negative (NEGATIVE) 07/09/22 09:35 Cryptosporid parvum Ag Negative (NEGATIVE) 07/09/22 09:35 Giardia lamblia Ag Negative (NEGATIVE) 07/09/22 09:35 Resp Viral Panel (PCR) See scanned report 07/07/22 13:03 - Plan (1) Pneumonia due to COVID-19 virus Status: Acute Plan: SUPPLEMENTAL OXYGEN, RESPIRATORY THERAPY, NORMAL SALINE AT 60, LEVAQUIN 750MG IV Q48H, SOLU-MEDROL 40MG IV Q8H, ROBITUSSIN DM 10ML QID, TUSSIONEX 5ML Q12H PRN, ASCORBIC ACID 1000MG PO BID, XOPENEX NEB TX TID, PULMICORT NEB TX BID, AND HER HOME MEDICATIONS WERE RESUMED. (2) Hypoxia Status: Resolved (3) Anemia Status: Acute Qualifiers: Anemia type: unspecified type Qualified Code(s): D64.9 - Anemia, uns pecified Plan: MONITOR H&H (4) HTN (hypertension) Status: Chronic Qualifiers: Hypertension type: primary hypertension Qualified Code(s): I10 - Essential (primary) hypertension Plan: HOLD BP MEDS AT THIS TIME DUE TO HYPOTENSION (5) CAD (coronary artery disease) Status: Chronic Qualifiers: Coronary Disease-Associated Artery/Lesion type: bypass graft [place] vs. transplanted heart: [place] heart (6) Seizure disorder Status: Chronic (7) Hyperlipidemia Status: Chronic Qualifiers: Hyperlipidemia type: mixed hyperlipidemia Qualified Code(s): E78.2 - Mixed hyperlipidemia
[2022-07-14] MEDS: CRESTOR TAB 10 MG PO SCH (21:56)
[2022-07-14] MEDS: NovoLIN R (or HumuLIN R) SC SCH (22:00)
[2022-07-15] MEDS: NS 1/2 1,000 ML IV 1,000 ML IV SCH ×3 (04:20→18:35)
[2022-07-15] MEDS: XOPENEX 1.25 MG/3 ML NEBULE NEB SCH ×3 (05:40→21:00)
[2022-07-15] MEDS: BUSPAR PO SCH ×3 (05:51→21:34)
[2022-07-15] MEDS: NovoLIN R (or HumuLIN R) SC SCH ×4 (06:26→21:49)
[2022-07-15] MEDS: SOLU-Medrol 40 MG VIAL IVP SCH ×3 (06:30→21:32)
[2022-07-15 06:31] LABS: BASOPHILS % (AUTO) 0.1 % (0.2-1.0); HEMATOCRIT 23.7 % (36.0-47.0); HEMOGLOBIN 7.9 g/dL (12.0-16.0); LYMPHOCYTES # (AUTO) 0.6 X10^3/uL (1.3-2.9); LYMPHOCYTES % (AUTO) 3.6 % (21.0-51.0); MEAN CORPUSCULAR HEMOGLOBIN 25.3 pg (27.0-34.0); MEAN CORPUSCULAR HGB CONC 33.2 g/dL (33.0-35.0); MEAN CORPUSCULAR VOLUME 76.1 fL (80.0-100.0); MEAN PLATELET VOLUME 8.3 fL (7.4-11.0); MONOCYTES # (AUTO) 1.2 x10^3/uL (0.3-0.8); MONOCYTES % (AUTO) 6.5 % (0.0-13.0); NEUTROPHILS % (AUTO) 89.8 % (42.0-75.0); RED BLOOD COUNT 3.12 X10^6/uL (3.5-5.4); RED CELL DISTRIBUTION WIDTH 15.5 % (11.6-16.5); WHITE BLOOD COUNT 17.8 X10^3/uL (3.6-10.0)
[2022-07-15 06:35] LABS: ALBUMIN 1.9 g/dL (3.4-5.0); CALCIUM 8.2 mg/dL (8.5-10.1); CARBON DIOXIDE 26.9 mmol/L (21-32); COR CA(FOR HYPOALB) 9.9 mg/dL (8.5-10.1); CREATININE 2.27 mg/dL (0.55-1.02); TOTAL PROTEIN 4.5 g/dL (6.4-8.2)
--- NOTE | 2022-07-15 07:46 | RAD ---
HISTORYCOVID-19, shortness of breathSTUDYChest AP [id number] ent is status post median sternotomy and CABG. There is a loop recorder device present. Heart size is normal. [place] are normal. Lungs are free of acute infiltrates. There is minimal subsegmental atelectasis in left lung base. No pleural effusions are identified. Bony thorax is unremarkable.IMPRESSIONNo definite acute infiltratesElectronically signed by: JV MAYBERRY (Jul 15, 2022 07:44:41)
[2022-07-15] MEDS: PULMICORT NEB TX 0.5 MG NEB SCH ×2 (08:40→21:00)
[2022-07-15] MEDS: LEVAQUIN PREMIX IV 750 MG 750 MG/150 ML BAG IV SCH (09:50)
[2022-07-15] MEDS: ROBITUSSIN DM PO SCH ×4 (09:50→21:36)
[2022-07-15] MEDS: KEPPRA TAB 500 MG PO SCH (09:51)
[2022-07-15] MEDS: VSL#3 PO SCH (09:51)
[2022-07-15] MEDS: LANTUS SC SCH (09:51)
[2022-07-15] MEDS: PROTONIX TAB 40 MG PO SCH (09:52)
[2022-07-15] MEDS: PLAVIX PO SCH (09:52)
[2022-07-15] MEDS: VITAMIN C PO SCH ×2 (09:52→21:33)
[2022-07-15] MEDS: ASPIRIN EC 81 MG PO SCH (09:52)
[2022-07-15] MEDS: CARAFATE PO SCH ×2 (09:53→21:34)
[2022-07-15] MEDS ORDERED: NS 1/2 1,000 ML IV 1,000 ML IV ONE (09:57)
[2022-07-15] MEDS: NORVASC TAB 10 MG PO SCH (10:58)
[2022-07-15] MEDS: LOPRESSOR TAB 50 MG PO SCH (10:58)
[2022-07-15] MEDS: ZESTRIL TAB 20 MG PO SCH (10:58)
--- NOTE | 2022-07-15 11:36 | PCM.PROG ---
Progress Note - Progress Note for Day of Date of Exam: 07/15/22 - Subjective Subjective: IS CURRENTLY INPATIENT STATUS FOR TREATMENT OF PNEUMONIA DUE TO COVID-19, HYPOXIA, DEHYDRATION, AND ANEMIA. RISK FACTORS AND PMH INCLUDE: CVA, SEIZURE DISORDER, CAD, MS, HYPERLIPIDEMIA, HTN, AND CAGB. TODAY, SHE IS ALERT AND ORIENTED, LYING IN BED ON MORNING ROUNDS. SHE CONTINUES TO COMPLAIN OF AN INTERMITTENT NON-PRODUCTIVE COUGH, SHORTNESS OF BREATH, AND GENERALIZED WEAKNESS TODAY. SHE CONTINUES TO BE HYPOTENSIVE THIS MORNING. ON EXAMINATION THIS MORNING, HEART IS REGULAR IN RATE AND RHYTHM. BILATERAL LUNGS ARE NOTED WITH DIMINISHED LUNG SOUNDS THROUGHOUT. ABDOMEN IS ROUND, SOFT, AND NON-TENDER WITH NORMAL BOWEL SOUNDS NOTED IN ALL QUADRANTS. HER VITALS THIS MORNING ARE: 98.6-62-18-98%-112/57. SHE IS CURRENTLY UTILIZING OXYGEN VIA NASAL CANNULA AT 2 LPM. LABS WERE OBTAINED. WBC 17.8, RBC 3.12, HGB 7.9, HCT 23.7, PLT COUNT 240, SODIUM 137, POTASSIUM 3.9, CHLORIDE 104, BUN 45, CREATININE 2.27, GLUCOSE 125, CALCIUM 8.2, AST 16, ALT 16, ALK PHOS 46, CRP 3.30, BNP 106, TOTAL PROTEIN 4.5, ALBUMIN 1.9. A RESPIRATORY VIRAL PANEL REVEALED GROWTH OF ENTEROBACTER SPP, E.COLI, KLEBSIELLA SPP, AND STREPTOCOCCUS PNEUMONIAE. BLOOD AND STOOL CULTURES ARE NEGATIVE. A CHEST XRAY WAS REPEATED THIS MORNING AND REVEALED: NO DEFINITE ACUTE INFILTRATES. SHE IS CURRENTLY RECEIVING NORMAL SALINE AT 60, LEVAQUIN 750MG IV Q48H, SOLU-MEDROL 40MG IV Q8H, ROBITUSSIN DM 10ML QID, TUSSIONEX 5ML Q12H PRN, ASCORBIC ACID 1000MG PO BID, XOPENEX NEB TX TID, PULMICORT NEB TX BID, THE POTASSIUM AND MAGNESIUM PROTOCOLS, AND HER HOME MEDICATIONS WERE RESUMED. WE WILL CONTINUE TO HOLD HER BLOOD PRESSURE MEDICATIONS THIS MORNING AND REASSESS LATER IN THE AFTERNOON. OTHERWISE, WE WILL FOLLOW-UP WITH AM LABS AND CHEST XRAY AND CONTINUE TO MONITOR. TIME SPENT ON CLINICAL ASSESSMENT, REVIWING LABS AND IMAGING, DECISION MAKING, AND DOCUMENTATION GREATER THAN 45 MINUTES. - Past Medical Family Social History Past Med/Fam/Surg Hx: No changes since H&P Allergies: Allergies No Known Allergies Allergy (Verified 07/07/22 13:28) - Review of Systems ROS: No change since H&P - Vital Signs and I&O's Vital Signs: Temperature 98.6 F Pulse Rate [Right Brachial] 62 Pulse Rate 58 Respiratory Rate 18 Blood Pressure [Right Calf] 100/54 Blood Pressure [Left Calf] 92/54 Blood Pressure [Left Arm] 129/65 Blood Pressure [Right Arm] 112/57 O2 Sat by Pulse Oximetry 97 Intake and Output: Intake & Output 07/12/22 07/13/22 07/14/22 07/15/22 11:59 11:59 11:59 11:59 Intake Total 3518 / 3518 3669 / 3669 1962 2743 / 2743 Balance 3518 / 3518 3669 / 3669 1962 274 / 2743 - Physical Exam Oriented: Normal Eyes: Normal Ear: Normal Nose: Normal Throat: Normal Respiratory: Generalized, Diminished Cardiovascular: Normal : Normal Auscultation: Bowel Sounds: Normal Palpation: Normal Tenderness: Normal Skin: Normal Musculoskeletal: Normal Psychiatric: Normal Mood Description: Calm Affect: Normal Speech Pattern: Clear, Appropriate - Laboratory and Diagnostics Result Diagrams: 07/15/22 05:57 07/15/22 05:57 Labs: 07/07/22 13:44 Blood Blood Culture - Final 07/07/22 13:33 Blood Blood Culture - Final 07/09/22 09:35 Stool Stool Culture - Final 07/09/22 09:35 Stool - Final Laboratory WBC 17.8 X10^3/uL (3.6-10.0) H 07/15/22 05:57 RBC 3.12 X10^6/uL (3.5-5.4) L 07/15/22 05:57 Hgb 7.9 g/dL (12.0-16.0) L 07/15/22 05:57 Hct 23.7 % (36.0-47.0) L 07/15/22 05:57 MCV 76.1 fL (80.0-100.0) L 07/15/22 05:57 MCH 25.3 pg (27.0-34.0) L 07/15/22 05:57 MCHC 33.2 g/dL (33.0-35.0) 07/15/22 05:57 RDW 15.5 % (11.6-16.5) 07/15/22 05:57 Plt Count 240 X10^3/uL (150.0-450.0) 07/15/22 05:57 Plt Count Comment Adequate (ADEQUATE) 07/14/22 05:30 MPV 8.3 fL (7.4-11.0) 07/15/22 05:57 Neut % (Auto) 89.8 % (42.0-75.0) H 07/15/22 05:57 Lymph % (Auto) 3.6 % (21.0-51.0) L 07/15/22 05:57 [place] % (Auto) 6.5 % (0.0-13.0) 07/15/22 05:57 Eos % (Auto) 0.0 % (0.9-2.9) L 07/15/22 05:57 Baso % (Auto) 0.1 % (0.2-1.0) L 07/15/22 05:57 Neut # (Auto) 16.0 x10^3/uL (2.2-4.8) H 07/15/22 05:57 Lymph # (Auto) 0.6 X10^3/uL (1.3-2.9) L 07/15/22 05:57 [place] # (Auto) 1.2 x10^3/uL (0.3-0.8) H 07/15/22 05:57 Eos # (Auto) 0.0 x10^3/uL (0.0-0.2) 07/15/22 05:57 Baso # (Auto) 0.0 X10^3/uL (0.0-0.1) 07/15/22 05:57 Absolute Nucleated RBC 0.0 /100WBC 07/15/22 05:57 Total Counted 100 07/14/22 05:30 Neutrophils % (Manual) 98 % (39-76) H 07/14/22 05:30 Band Neutrophils % 1 % (0-10) 07/10/22 05:20 Lymphocytes % (Manual) 2 % (13-43) L 07/14/22 05:30 Monocytes % (Manual) 1 % (4-9) L 07/13/22 05:11 Plt Morphology Comment Normal (NORMAL) 07/14/22 05:30 RBC Morphology Abnormal (NORMAL) A 07/14/22 05:30 Hypochromasia Slight A 07/13/22 05:11 Microcytosis Slight A 07/13/22 05:11 Ovalocytes Slight A 07/14/22 05:30 [place] Cells Slight A 07/14/22 05:30 D-Dimer 2.53 ug/ml (0.0-0.57) H 07/07/22 13:33 Sodium 137 mmol/L (136-145) 07/15/22 05:57 Corrected Sodium 138 mmol/L (136-145) 07/15/22 05:57 Potassium 3.9 mmol/L (3.5-5.1) 07/15/22 05:57 Chloride 104 mmol/L (98-107) 07/15/22 05:57 Carbon Dioxide 26.9 mmol/L (21-32) 07/15/22 05:57 BUN 45 mg/dL (7-18) H 07/15/22 05:57 Creatinine 2.27 mg/dL (0.55-1.02) H 07/15/22 05:57 Est GFR (MDRD) Af Amer 28 (>60) L 07/15/22 05:57 Est GFR (MDRD) Non-Af 23 (>60) L 07/15/22 05:57 Glucose 125 mg/dL (65-99) H 07/15/22 05:57 POC Glucose (mg/dL) 214 mg/dL (65-99) H 07/15/22 11:21 Calcium 8.2 mg/dL (8.5-10.1) L 07/15/22 05:57 Corrected Calcium 9.9 mg/dL (8.5-10.1) 07/15/22 05:57 Magnesium 2.1 mg/dL (2.0-2.9) 07/13/22 05:11 Total Bilirubin 0.30 mg/dL (0.2-1.0) 07/15/22 05:57 AST 16 Units/L (15-37) 07/15/22 05:57 ALT 16 Units/L (12-78) 07/15/22 05:57 Alkaline Phosphatase 46 Units/L (46-116) 07/15/22 05:57 Creatine Kinase 32 Units/L (26-192) 07/07/22 13:33 Troponin I High Sens 32.8 ng/L (4.0-60.0) 07/07/22 13:33 C-Reactive Protein 3.30 mg/L (0-3.0) H 07/15/22 05:57 B-Natriuretic Peptide 106 pg/mL (0-79) H 07/15/22 05:57 Total Protein 4.5 g/dL (6.4-8.2) L 07/15/22 05:57 Albumin 1.9 g/dL (3.4-5.0) L 07/15/22 05:57 Globulin 2.6 g/dL (2.5-4.5) 07/15/22 05:57 Albumin/Globulin Ratio 0.7 Ratio (1.1-2.1) L 07/15/22 05:57 Stl Occult Blood (IFOB) Positive (NEGATIVE) A 07/09/22 09:35 Stool for White Cells Positive (NEGATIVE) A 07/09/22 09:35 Stl C. diff Tox B Gene Negative (NEGATIVE) 07/09/22 09:35 Stl C. diff [id number] Presumptive negative (NEGATIVE) 07/09/22 09:35 Stool H. pylori Ag Negative (NEGATIVE) 07/09/22 09:35 Cryptosporid parvum Ag Negative (NEGATIVE) 07/09/22 09:35 Giardia lamblia Ag Negative (NEGATIVE) 07/09/22 09:35 Resp Viral Panel (PCR) See scanned report 07/07/22 13:03 - Plan (1) Pneumonia due to COVID-19 virus Status: Acute Plan: SUPPLEMENTAL OXYGEN, RESPIRATORY THERAPY, NORMAL SALINE AT 60, LEVAQUIN 750MG IV Q48H, SOLU-MEDROL 40MG IV Q8H, ROBITUSSIN DM 10ML QID, TUSSIONEX 5ML Q12H PRN, ASCORBIC ACID 1000MG PO BID, XOPENEX NEB TX TID, PULMICORT NEB TX BID, AND HER HOME MEDICATIONS WERE RESUMED. (2) Hypoxia Status: Resolved (3) Anemia Status: Acute Qualifiers: Anemia type: unspecified type Qualified Code(s): D64.9 - Anemia, unspecified Plan: MONITOR H&H (4) HTN (hypertension) Status: Chronic Qualifiers: Hypertension type: primary hypertension Qualified Code(s): I10 - Essential (primary) hypertension Plan: HOLD BP MEDS AT THIS TIME DUE TO HYPOTENSION (5) CAD (coronary artery disease) Status: Chronic Qualifiers: Coronary Disease-Associated Artery/Lesion type: bypass graft [place] vs. transplanted heart: [place] heart (6) Seizure disorder Status: Chronic (7) Hyperlipidemia Status: Chronic Qualifiers: Hyperlipidemia type: mixed hyperlipidemia Qualified Code(s): E78.2 - Mixed hyperlipidemia
[2022-07-15] MEDS: CRESTOR TAB 10 MG PO SCH (21:33)
[2022-07-16] MEDS ORDERED: NS 1/2 1,000 ML IV 1,000 ML IV ONE ×2 (05:23→21:13)
[2022-07-16] MEDS: NS 1/2 1,000 ML IV 1,000 ML IV SCH ×3 (05:53→21:17)
[2022-07-16] MEDS: SOLU-Medrol 40 MG VIAL IVP SCH ×3 (05:54→21:19)
[2022-07-16] MEDS: XOPENEX 1.25 MG/3 ML NEBULE NEB SCH ×3 (05:56→21:18)
[2022-07-16] MEDS: BUSPAR PO SCH ×3 (06:02→21:18)
[2022-07-16 06:14] LABS: BASOPHILS % (AUTO) 0.1 % (0.2-1.0); HEMATOCRIT 22.1 % (36.0-47.0); HEMOGLOBIN 7.5 g/dL (12.0-16.0); LYMPHOCYTES # (AUTO) 0.7 X10^3/uL (1.3-2.9); LYMPHOCYTES % (AUTO) 4.1 % (21.0-51.0); MEAN CORPUSCULAR HEMOGLOBIN 25.5 pg (27.0-34.0); MONOCYTES % (AUTO) 6.3 % (0.0-13.0); NEUTROPHILS # (AUTO) 14.4 x10^3/uL (2.2-4.8); NEUTROPHILS % (AUTO) 89.5 % (42.0-75.0); RED BLOOD COUNT 2.94 X10^6/uL (3.5-5.4); RED CELL DISTRIBUTION WIDTH 15.2 % (11.6-16.5)
[2022-07-16 06:17] LABS: ALBUMIN 1.8 g/dL (3.4-5.0); CALCIUM 8.1 mg/dL (8.5-10.1); CARBON DIOXIDE 23.9 mmol/L (21-32); COR CA(FOR HYPOALB) 9.9 mg/dL (8.5-10.1); TOTAL PROTEIN 4.2 g/dL (6.4-8.2)
--- NOTE | 2022-07-16 06:22 | RAD ---
HISTORYCOVID, shortness of breathSTUDYChest AP [id number] ent is status post median sternotomy and CABG. There is a loop recorder device overlying the heart. Ernestina are normal. Lungs are free of acute infiltrates. No pleural effusions are identified. Bony thorax is unremarkable.IMPRESSIONLungs clearElectronically signed by: JV MAYBERRY (Jul 16, 2022 06:21:44)
[2022-07-16] MEDS: NovoLIN R (or HumuLIN R) SC SCH ×4 (06:34→21:18)
[2022-07-16] MEDS: PULMICORT NEB TX 0.5 MG NEB SCH ×2 (08:37→21:18)
[2022-07-16] MEDS: ASPIRIN EC 81 MG PO SCH (09:21)
[2022-07-16] MEDS: VSL#3 PO SCH (09:22)
[2022-07-16] MEDS: VITAMIN C PO SCH ×2 (09:22→20:56)
[2022-07-16] MEDS: ROBITUSSIN DM PO SCH ×4 (09:22→20:55)
[2022-07-16] MEDS: PROTONIX TAB 40 MG PO SCH (09:22)
[2022-07-16] MEDS: PLAVIX PO SCH (09:22)
[2022-07-16] MEDS: KEPPRA TAB 500 MG PO SCH (09:22)
[2022-07-16] MEDS: CARAFATE PO SCH ×2 (09:23→20:57)
[2022-07-16] MEDS: LANTUS SC SCH (09:23)
[2022-07-16] MEDS: PEPCID 20 MG VIAL 20 MG in NS 50 ML IV 50 ML IV SCH (12:25)
[2022-07-16 14:14] VITALS: BMI 29.5
[2022-07-16] MEDS: CRESTOR TAB 10 MG PO SCH (20:57)
[2022-07-16] MEDS: COLACE CAP 100 MG PO SCH (21:17)
[2022-07-17] MEDS: SOLU-Medrol 40 MG VIAL IVP SCH ×3 (05:15→21:35)
[2022-07-17] MEDS: BUSPAR PO SCH ×3 (05:16→21:34)
[2022-07-17] MEDS: NovoLIN R (or HumuLIN R) SC SCH ×4 (05:32→21:36)
[2022-07-17] MEDS: XOPENEX 1.25 MG/3 ML NEBULE NEB SCH ×3 (06:09→20:15)
[2022-07-17 06:22] LABS: BASOPHILS % (AUTO) 0.1 % (0.2-1.0); HEMATOCRIT 23.1 % (36.0-47.0); HEMOGLOBIN 7.5 g/dL (12.0-16.0); LYMPHOCYTES # (AUTO) 0.7 X10^3/uL (1.3-2.9); LYMPHOCYTES % (AUTO) 4.9 % (21.0-51.0); MEAN CORPUSCULAR HGB CONC 32.7 g/dL (33.0-35.0); MEAN CORPUSCULAR VOLUME 76.3 fL (80.0-100.0); MONOCYTES % (AUTO) 6.7 % (0.0-13.0); NEUTROPHILS # (AUTO) 12.9 x10^3/uL (2.2-4.8); NEUTROPHILS % (AUTO) 88.3 % (42.0-75.0); RED BLOOD COUNT 3.02 X10^6/uL (3.5-5.4); RED CELL DISTRIBUTION WIDTH 15.3 % (11.6-16.5); WHITE BLOOD COUNT 14.6 X10^3/uL (3.6-10.0)
[2022-07-17 06:29] LABS: ALBUMIN 1.9 g/dL (3.4-5.0); CALCIUM 8.2 mg/dL (8.5-10.1); CARBON DIOXIDE 26.5 mmol/L (21-32); COR CA(FOR HYPOALB) 9.9 mg/dL (8.5-10.1); CREATININE 1.9 mg/dL (0.55-1.02); TOTAL PROTEIN 4.5 g/dL (6.4-8.2)
[2022-07-17] MEDS: PULMICORT NEB TX 0.5 MG NEB SCH ×2 (08:25→20:15)
[2022-07-17] MEDS: CARAFATE PO SCH ×2 (09:06→21:34)
[2022-07-17] MEDS: ASPIRIN EC 81 MG PO SCH (09:07)
[2022-07-17] MEDS: PLAVIX PO SCH (09:07)
[2022-07-17] MEDS: VSL#3 PO SCH (09:07)
[2022-07-17] MEDS: LOPRESSOR TAB 50 MG PO SCH ×2 (09:08→21:35)
[2022-07-17] MEDS: KEPPRA TAB 500 MG PO SCH (09:08)
[2022-07-17] MEDS: VITAMIN C PO SCH ×2 (09:08→21:34)
[2022-07-17] MEDS: PROTONIX TAB 40 MG PO SCH (09:08)
[2022-07-17] MEDS: PEPCID 20 MG VIAL 20 MG in NS 50 ML IV 50 ML IV SCH (09:09)
[2022-07-17] MEDS: ROBITUSSIN DM PO SCH ×4 (09:09→21:35)
[2022-07-17] MEDS: LANTUS SC SCH (09:11)
[2022-07-17] MEDS: LEVAQUIN PREMIX IV 750 MG 750 MG/150 ML BAG IV SCH (10:03)
[2022-07-17] MEDS: NS 1/2 1,000 ML IV 1,000 ML IV SCH ×2 (15:15→16:49)
[2022-07-17] MEDS ORDERED: NS 1/2 1,000 ML IV 1,000 ML IV ONE (16:30)
[2022-07-17] MEDS ORDERED: XOPENEX 1.25 MG/3 ML NEBULE NEB ONE (19:32)
[2022-07-17] MEDS: CRESTOR TAB 10 MG PO SCH (21:33)
[2022-07-17] MEDS: COLACE CAP 100 MG PO SCH (21:34)
[2022-07-17] MEDS: MIRALAX POWDER (1 DOSE 17 G) PO SCH (21:35)
[2022-07-18] MEDS: XOPENEX 1.25 MG/3 ML NEBULE NEB SCH ×3 (06:00→21:28)
[2022-07-18] MEDS: SOLU-Medrol 40 MG VIAL IVP SCH ×3 (06:04→21:34)
[2022-07-18] MEDS: BUSPAR PO SCH ×3 (06:13→21:36)
[2022-07-18] MEDS: NovoLIN R (or HumuLIN R) SC SCH ×4 (06:15→22:02)
[2022-07-18] MEDS: NS 1/2 1,000 ML IV 1,000 ML IV SCH ×3 (06:16→19:17)
[2022-07-18 06:29] LABS: BASOPHILS % (AUTO) 0.2 % (0.2-1.0); HEMATOCRIT 21.7 % (36.0-47.0); HEMOGLOBIN 7.2 g/dL (12.0-16.0); LYMPHOCYTES # (AUTO) 0.8 X10^3/uL (1.3-2.9); LYMPHOCYTES % (AUTO) 5.3 % (21.0-51.0); MEAN CORPUSCULAR HEMOGLOBIN 25.5 pg (27.0-34.0); MEAN CORPUSCULAR VOLUME 77.2 fL (80.0-100.0); MONOCYTES # (AUTO) 0.9 x10^3/uL (0.3-0.8); MONOCYTES % (AUTO) 6.3 % (0.0-13.0); NEUTROPHILS # (AUTO) 12.7 x10^3/uL (2.2-4.8); NEUTROPHILS % (AUTO) 88.2 % (42.0-75.0); RED CELL DISTRIBUTION WIDTH 15.5 % (11.6-16.5); WHITE BLOOD COUNT 14.4 X10^3/uL (3.6-10.0)
[2022-07-18 06:53] LABS: ALANINE AMINOTRANSFERASE 15 Units/L (12-78); ALBUMIN 1.8 g/dL (3.4-5.0); ALKALINE PHOSPHATASE 52 Units/L (46-116); ASPARTATE AMINO TRANSFERASE 13 Units/L (15-37); BLOOD UREA NITROGEN 31 mg/dL (7-18); CALCIUM 8.1 mg/dL (8.5-10.1); CARBON DIOXIDE 25.6 mmol/L (21-32); CHLORIDE 105 mmol/L (98-107); COR CA(FOR HYPOALB) 9.9 mg/dL (8.5-10.1); CREATININE 1.68 mg/dL (0.55-1.02); SODIUM 136 mmol/L (136-145); TOTAL PROTEIN 4.2 g/dL (6.4-8.2); eGFR NON BLACK RACES 32 (>60)
[2022-07-18 06:59] LABS: PLATELET MORPHOLOGY COMMENT NORMAL (NORMAL)
[2022-07-18 07:00] LABS: HYPOCHROMASIA SLIGHT; MICROCYTOSIS SLIGHT
[2022-07-18 07:07] LABS: BURR CELLS SLIGHT
[2022-07-18] MEDS: PULMICORT NEB TX 0.5 MG NEB SCH ×2 (09:30→21:28)
[2022-07-18] MEDS ORDERED: NS 1/2 1,000 ML IV 1,000 ML IV ONE (09:40)
[2022-07-18] MEDS: VSL#3 PO SCH (09:44)
[2022-07-18] MEDS: KEPPRA TAB 500 MG PO SCH (09:45)
[2022-07-18] MEDS: ASPIRIN EC 81 MG PO SCH (09:45)
[2022-07-18] MEDS: LOPRESSOR TAB 50 MG PO SCH ×2 (09:45→21:35)
[2022-07-18] MEDS: VITAMIN C PO SCH ×2 (09:45→21:35)
[2022-07-18] MEDS: PROTONIX TAB 40 MG PO SCH (09:46)
[2022-07-18] MEDS: CARAFATE PO SCH ×2 (09:46→21:35)
[2022-07-18] MEDS: LANTUS SC SCH (09:47)
[2022-07-18] MEDS: PLAVIX PO SCH (09:47)
[2022-07-18] MEDS: ROBITUSSIN DM PO SCH ×4 (09:48→21:35)
[2022-07-18] MEDS: PEPCID 20 MG VIAL 20 MG in NS 50 ML IV 50 ML IV SCH (09:48)
--- NOTE | 2022-07-18 12:14 | PCM.PROG ---
Progress Note Progress Note for Day of Date of Exam: 07/17/22 Subjective Subjective: PT IS A 67 YEAR OLD FEMALE ADMITTED FOR TREATMENT OF PNEUMONIA DUE TO COVID-19, HYPOXIA, DEHYDRATION, AND ANEMIA. RISK FACTORS AND PMH INCLUDE: CVA, SEIZURE DISORDER, CAD, OR, HYPERLIPIDEMIA, HTN, AND CAGB. TODAY, SHE IS ALERT AND ORIENTED, LYING IN BED ON MORNING ROUNDS. THIS MORNING SHE REPORTS INTERMITTENT NON-PRODUCTIVE COUGH, SHORTNESS OF BREATH, AND GENERALIZED WEAKNESS. SHE IS CURRENTLY UTILIZING OXYGEN VIA NASAL CANNULA AT 2 LPM. LABS WERE OBTAINED. LABS: WBC 14.6, HGB 7.5, PLT 215, NA 136, K 3.5, CREATININE 1.90, GLUCOSE 139. A RESPIRATORY VIRAL PANEL REVEALED GROWTH OF ENTEROBACTER SPP, E.COLI, KLEBSIELLA SPP, AND STREPTOCOCCUS PNEUMONIAE. BLOOD AND STOOL CULTURES ARE NEGATIVE. SHE IS CURRENTLY RECEIVING NORMAL SALINE AT 60, LEVAQUIN 750MG IV Q48H, SOLU-MEDROL 40MG IV Q8H, ROBITUSSIN DM 10ML QID, TUSSIONEX 5ML Q12H PRN, ASCORBIC ACID 1000MG PO BID, XOPENEX NEB TX TID, PULMICORT NEB TX BID, THE POTASSIUM AND MAGNESIUM PROTOCOLS, AND HER HOME MEDICATIONS WERE RESUMED. BLOOD PRESSURE THIS MORNING APPEARS TO BE STABLE. WILL RESTART METOPROLOL. OTHERWISE, WE WILL FOLLOW-UP WITH AM LABS AND CHEST XRAY AND CONTINUE TO MONITOR. Past Medical Family Social History Past Med/Fam/Surg Hx: No changes since H&P Allergies: Allergies No Known Allergies Allergy (Verified 07/07/22 13:28) Review of Systems ROS: No change since H&P Vital Signs and I&O's Vital Signs: Temperature 97.9 F Pulse Rate [Right Brachial] 70 Pulse Rate 62 Respiratory Rate 18 Blood Pressure [Right Calf] 100/54 Blood Pressure [Left Calf] 92/54 Blood Pressure [Left Arm] 134/75 Blood Pressure [Right Arm] 167/74 O2 Sat by Pulse Oximetry 99 Intake and Output: Intake & Output 07/15/22 07/16/22 07/17/22 07/18/22 23:59 23:59 23:59 23:59 Intake Total 2156 / 2156 2161 / 2161 3312 / 3312 1380 / 1380 Balance 2156 / 2156 2161 / 2161 3312 / 3312 1380 / 1380 Physical Exam Oriented: Normal Eyes: Normal Ear: Normal Nose: Normal Throat: Normal Respiratory: Generalized and Diminished Cardiovascular: Normal : Normal Auscultation: Bowel Sounds: Normal Tenderness: Normal Skin: Normal Musculoskeletal: Normal Psychiatric: Normal Mood Description: Calm Affect: Normal Speech Pattern: Clear and Appropriate Laboratory and Diagnostics Result Diagrams: 07/18/22 05:36 07/18/22 05:36 Labs: 07/07/22 13:44 Blood Blood Culture - Final 07/07/22 13:33 Blood Blood Culture - Final 07/09/22 09:35 Stool Stool Culture - Final 07/09/22 09:35 Stool - Final Laboratory WBC 14.4 X10^3/uL (3.6-10.0) H 07/18/22 05:36 RBC 2.80 X10^6/uL (3.5-5.4) L 07/18/22 05:36 Hgb 7.2 g/dL (12.0-16.0) L 07/18/22 05:36 Hct 21.7 % (36.0-47.0) L 07/18/22 05:36 MCV 77.2 fL (80.0-100.0) L 07/18/22 05:36 MCH 25.5 pg (27.0-34.0) L 07/18/22 05:36 MCHC 33.0 g/dL (33.0-35.0) 07/18/22 05:36 RDW 15.5 % (11.6-16.5) 07/18/22 05:36 Plt Count 215 X10^3/uL (150.0-450.0) 07/18/22 05:36 Plt Count Comment Adequate (ADEQUATE) 07/18/22 05:36 MPV 8.0 fL (7.4-11.0) 07/18/22 05:36 Neut % (Auto) 88.2 % (42.0-75.0) H 07/18/22 05:36 Lymph % (Auto) 5.3 % (21.0-51.0) L 07/18/22 05:36 [place] % (Auto) 6.3 % (0.0-13.0) 07/18/22 05:36 Eos % (Auto) 0.0 % (0.9-2.9) L 07/18/22 05:36 Baso % (Auto) 0.2 % (0.2-1.0) 07/18/22 05:36 Neut # (Auto) 12.7 x10^3/uL (2.2-4.8) H 07/18/22 05:36 Lymph # (Auto) 0.8 X10^3/uL (1.3-2.9) L 07/18/22 05:36 [place] # (Auto) 0.9 x10^3/uL (0.3-0.8) H 07/18/22 05:36 Eos # (Auto) 0.0 x10^3/uL (0.0-0.2) 07/18/22 05:36 Baso # (Auto) 0.0 X10^3/uL (0.0-0.1) 07/18/22 05:36 Absolute Nucleated RBC 0.0 /100WBC 07/18/22 05:36 Total Counted 100 07/18/22 05:36 Neutrophils % (Manual) 94 % (39-76) H 07/18/22 05:36 Band Neutrophils % 1 % (0-10) 07/10/22 05:20 Lymphocytes % (Manual) 3 % (13-43) L 07/18/22 05:36 Monocytes % (Manual) 3 % (4-9) L 07/18/22 05:36 Plt Morphology Comment Normal (NORMAL) 07/18/22 05:36 RBC Morphology Abnormal (NORMAL) A 07/18/22 05:36 Hypochromasia Slight A 07/18/22 05:36 Microcytosis Slight A 07/18/22 05:36 Ovalocytes Slight A 07/14/22 05:30 [place] Cells Slight A 07/18/22 05:36 D-Dimer 2.53 ug/ml (0.0-0.57) H 07/07/22 13:33 Sodium 136 mmol/L (136-145) 07/18/22 05:36 Corrected Sodium TNP 07/18/22 05:36 Potassium 3.7 mmol/L (3.5-5.1) 07/18/22 05:36 Chloride 105 mmol/L (98-107) 07/18/22 05:36 Carbon Dioxide 25.6 mmol/L (21-32) 07/18/22 05:36 BUN 31 mg/dL (7-18) H 07/18/22 05:36 Creatinine 1.68 mg/dL (0.55-1.02) H 07/18/22 05:36 Est GFR (MDRD) Af Amer 39 (>60) L 07/18/22 05:36 Est GFR (MDRD) Non-Af 32 (>60) L 07/18/22 05:36 Glucose 105 mg/dL (65-99) H 07/18/22 05:36 POC Glucose (mg/dL) 188 mg/dL (65-99) H 07/18/22 11:21 Calcium 8.1 mg/dL (8.5-10.1) L 07/18/22 05:36 Corrected Calcium 9.9 mg/dL (8.5-10.1) 07/18/22 05:36 Magnesium 2.1 mg/dL (2.0-2.9) 07/13/22 05:11 Iron 120 ug/dL (50-175) 07/16/22 05:33 Transferrin 123 mg/dL (202-364) L 07/16/22 05:33 Ferritin 291 ng/mL (8-252) H 07/16/22 05:33 Total Bilirubin 0.20 mg/dL (0.2-1.0) 07/18/22 05:36 AST 13 Units/L (15-37) L 07/18/22 05:36 ALT 15 Units/L (12-78) 07/18/22 05:36 Alkaline Phosphatase 52 Units/L (46-116) 07/18/22 05:36 Creatine Kinase 32 Units/L (26-192) 07/07/22 13:33 Troponin I High Sens 32.8 ng/L (4.0-60.0) 07/07/22 13:33 C-Reactive Protein 1.10 mg/L (0-3.0) 07/17/22 05:50 B-Natriuretic Peptide 133 pg/mL (0-79) H 07/17/22 05:50 Total Protein 4.2 g/dL (6.4-8.2) L 07/18/22 05:36 Albumin 1.8 g/dL (3.4-5.0) L 07/18/22 05:36 Globulin 2.4 g/dL (2.5-4.5) L 07/18/22 05:36 Albumin/Globulin Ratio 0.8 Ratio (1.1-2.1) L 07/18/22 05:36 Vitamin B12 217 pg/mL (193-986) 07/16/22 05:33 Folate 7.0 ng/mL (>8.6) L 07/16/22 05:33 Stl Occult Blood (IFOB) Positive (NEGATIVE) A 07/09/22 09:35 Stool for White Cells Positive (NEGATIVE) A 07/09/22 09:35 Stl C. diff Tox B Gene Negative (NEGATIVE) 07/09/22 09:35 Stl C. diff [id number] Presumptive negative (NEGATIVE) 07/09/22 09:35 Stool H. pylori Ag Negative (NEGATIVE) 07/09/22 09:35 Cryptosporid parvum Ag Negative (NEGATIVE) 07/09/22 09:35 Giardia lamblia Ag Negative (NEGATIVE) 07/09/22 09:35 Resp Viral Panel (PCR) See scanned report 07/07/22 13:03 Plan (1) Pneumonia due to COVID-19 virus: Status: Acute Plan: SUPPLEMENTAL OXYGEN, RESPIRATORY THERAPY, NORMAL SALINE AT 60, LEVAQUIN 750MG IV Q48H, SOLU-MEDROL 40MG IV Q8H, ROBITUSSIN DM 10ML QID, TUSSIONEX 5ML Q12H PRN, ASCORBIC ACID 1000MG PO BID, XOPENEX NEB TX TID, PULMICORT NEB TX BID, AND HER HOME MEDICATIONS WERE RESUMED. (2) Hypoxia: Status: Resolved (3) Anemia: Status: Acute Qualifiers: Anemia type: unspecified type Qualified Code(s): D64.9 - Anemia, unspecified Plan: MONITOR H&H (4) HTN (hypertension): Status: Chronic Qualifiers: Hypertension type: primary hypertension Qualified Code(s): I10 - Essential (primary) hypertension Plan: HOLD BP MEDS AT THIS TIME DUE TO HYPOTENSION (5) CAD (coronary artery disease): Status: Chronic Qualifiers: Coronary Disease-Associated Artery/Lesion type: bypass graft [place] vs. transplanted heart: [place] heart (6) Seizure disorder: Status: Chronic (7) Hyperlipidemia: Status: Chronic Qualifiers: Hyperlipidemia type: mixed hyperlipidemia Qualified Code(s): E78.2 - Mixed hyperlipidemia
--- NOTE | 2022-07-18 12:17 | PCM.PROG ---
Progress Note Progress Note for Day of Date of Exam: 07/18/22 Subjective Subjective: PT IS A 67 YEAR OLD FEMALE ADMITTED FOR TREATMENT OF PNEUMONIA DUE TO COVID-19, HYPOXIA, DEHYDRATION, AND ANEMIA. RISK FACTORS AND PMH INCLUDE: CVA, SEIZURE DISORDER, CAD, MD, HYPERLIPIDEMIA, HTN, AND CAGB. THIS MORNING PATIENT IS RESTING IN BED COMFORTABLY. NO ACUTE EVENTS OVERNIGHT. SHE CONTINUES TO HAVE INTERMITTENT NON-PRODUCTIVE COUGH, SHORTNESS OF BREATH, AND GENERALIZED WEAKNESS. SHE IS CURRENTLY UTILIZING OXYGEN VIA NASAL CANNULA AT 2 LPM. LABS WERE OBTAINED. WBC 14.4, HGB 7.2, PLT 215, NA 136, K 3.7, CREATININE 1.68, GLUCOSE 105. A RESPIRATORY VIRAL PANEL REVEALED GROWTH OF ENTEROBACTER SPP, E.COLI, KLEBSIELLA SPP, AND STREPTOCOCCUS PNEUMONIAE. BLOOD AND STOOL CULTURES ARE NEGATIVE. SHE IS CURRENTLY RECEIVING NORMAL SALINE AT 60, LEVAQUIN 750MG IV Q48H, SOLU-MEDROL 40MG IV Q8H, ROBITUSSIN DM 10ML QID, TUSSIONEX 5ML Q12H PRN, ASCORBIC ACID 1000MG PO BID, XOPENEX NEB TX TID, PULMICORT NEB TX BID, THE POTASSIUM AND MAGNESIUM PROTOCOLS, AND HER HOME MEDICATIONS WERE RESUMED. DUE TO CONTINUED WEAKNESS, WILL LIKELY NEED REHABILITATION. PT TO EVALUATE. OTHERWISE, WE WILL FOLLOW-UP WITH AM LABS AND CHEST XRAY AND CONTINUE TO MONITOR. Past Medical Family Social History Past Med/Fam/Surg Hx: No changes since H&P Allergies: Allergies No Known Allergies Allergy (Verified 07/07/22 13:28) Review of Systems ROS: No change since H&P Vital Signs and I&O's Vital Signs: Temperature 97.9 F Pulse Rate [Right Brachial] 70 Pulse Rate 62 Respiratory Rate 18 Blood Pressure [Right Calf] 100/54 Blood Pressure [Left Calf] 92/54 Blood Pressure [Left Arm] 134/75 Blood Pressure [Right Arm] 167/74 O2 Sat by Pulse Oximetry 99 Intake and Output: Intake & Output 07/15/22 07/16/22 07/17/22 07/18/22 23:59 23:59 23:59 23:59 Intake Total 2156 / 2157 2161 / 2161 3312 / 3312 1380 / 1380 Balance 215 / 2157 2161 / 2161 3312 / 3312 1380 / 1380 Physical Exam Oriented: Normal Eyes: Normal Ear: Normal Nose: Normal Throat: Normal Respiratory: Generalized and Diminished Cardiovascular: Normal : Normal Auscultation: Bowel Sounds: Normal Tenderness: Normal Skin: Normal Musculoskeletal: Normal Psychiatric: Normal Mood Description: Calm Affect: Normal Speech Pattern: Clear and Appropriate Laboratory and Diagnostics Result Diagrams: 07/18/22 05:36 07/18/22 05:36 Labs: 07/07/22 13:44 Blood Blood Culture - Final 07/07/22 13:33 Blood Blood Culture - Final 07/09/22 09:35 Stool Stool Culture - Final 07/09/22 09:35 Stool - Final Laboratory WBC 14.4 X10^3/uL (3.6-10.0) H 07/18/22 05:36 RBC 2.80 X10^6/uL (3.5-5.4) L 07/18/22 05:36 Hgb 7.2 g/dL (12.0-16.0) L 07/18/22 05:36 Hct 21.7 % (36.0-47.0) L 07/18/22 05:36 MCV 77.2 fL (80.0-100.0) L 07/18/22 05:36 MCH 25.5 pg (27.0-34.0) L 07/18/22 05:36 MCHC 33.0 g/dL (33.0-35.0) 07/18/22 05:36 RDW 15.5 % (11.6-16.5) 07/18/22 05:36 Plt Count 215 X10^3/uL (150.0-450.0) 07/18/22 05:36 Plt Count Comment Adequate (ADEQUATE) 07/18/22 05:36 MPV 8.0 fL (7.4-11.0) 07/18/22 05:36 Neut % (Auto) 88.2 % (42.0-75.0) H 07/18/22 05:36 Lymph % (Auto) 5.3 % (21.0-51.0) L 07/18/22 05:36 [place] % (Auto) 6.3 % (0.0-13.0) 07/18/22 05:36 Eos % (Auto) 0.0 % (0.9-2.9) L 07/18/22 05:36 Baso % (Auto) 0.2 % (0.2-1.0) 07/18/22 05:36 Neut # (Auto) 12.7 x10^3/uL (2.2-4.8) H 07/18/22 05:36 Lymph # (Auto) 0.8 X10^3/uL (1.3-2.9) L 07/18/22 05:36 [place] # (Auto) 0.9 x10^3/uL (0.3-0.8) H 07/18/22 05:36 Eos # (Auto) 0.0 x10^3/uL (0.0-0.2) 07/18/22 05:36 Baso # (Auto) 0.0 X10^3/uL (0.0-0.1) 07/18/22 05:36 Absolute Nucleated RBC 0.0 /100WBC 07/18/22 05:36 Total Counted 100 07/18/22 05:36 Neutrophils % (Manual) 94 % (39-76) H 07/18/22 05:36 Band Neutrophils % 1 % (0-10) 07/10/22 05:20 Lymphocytes % (Manual) 3 % (13-43) L 07/18/22 05:36 Monocytes % (Manual) 3 % (4-9) L 07/18/22 05:36 Plt Morphology Comment Normal (NORMAL) 07/18/22 05:36 RBC Morphology Abnormal (NORMAL) A 07/18/22 05:36 Hypochromasia Slight A 07/18/22 05:36 Microcytosis Slight A 07/18/22 05:36 Ovalocytes Slight A 07/14/22 05:30 [place] Cells Slight A 07/18/22 05:36 D-Dimer 2.53 ug/ml (0.0-0.57) H 07/07/22 13:33 Sodium 136 mmol/L (136-145) 07/18/22 05:36 Corrected Sodium TNP 07/18/22 05:36 Potassium 3.7 mmol/L (3.5-5.1) 07/18/22 05:36 Chloride 105 mmol/L (98-107) 07/18/22 05:36 Carbon Dioxide 25.6 mmol/L (21-32) 07/18/22 05:36 BUN 31 mg/dL (7-18) H 07/18/22 05:36 Creatinine 1.68 mg/dL (0.55-1.02) H 07/18/22 05:36 Est GFR (MDRD) Af Amer 39 (>60) L 07/18/22 05:36 Est GFR (MDRD) Non-Af 32 (>60) L 07/18/22 05:36 Glucose 105 mg/dL (65-99) H 07/18/22 05:36 POC Glucose (mg/dL) 188 mg/dL (65-99) H 07/18/22 11:21 Calcium 8.1 mg/dL (8.5-10.1) L 07/18/22 05:36 Corrected Calcium 9.9 mg/dL (8.5-10.1) 07/18/22 05:36 Magnesium 2.1 mg/dL (2.0-2.9) 07/13/22 05:11 Iron 120 ug/dL (50-175) 07/16/22 05:33 Transferrin 123 mg/dL (202-364) L 07/16/22 05:33 Ferritin 291 ng/mL (8-252) H 07/16/22 05:33 Total Bilirubin 0.20 mg/dL (0.2-1.0) 07/18/22 05:36 AST 13 Units/L (15-37) L 07/18/22 05:36 ALT 15 Units/L (12-78) 07/18/22 05:36 Alkaline Phosphatase 52 Units/L (46-116) 07/18/22 05:36 Creatine Kinase 32 Units/L (26-192) 07/07/22 13:33 Troponin I High Sens 32.8 ng/L (4.0-60.0) 07/07/22 13:33 C-Reactive Protein 1.10 mg/L (0-3.0) 07/17/22 05:50 B-Natriuretic Peptide 133 pg/mL (0-79) H 07/17/22 05:50 Total Protein 4.2 g/dL (6.4-8.2) L 07/18/22 05:36 Albumin 1.8 g/dL (3.4-5.0) L 07/18/22 05:36 Globulin 2.4 g/dL (2.5-4.5) L 07/18/22 05:36 Albumin/Globulin Ratio 0.8 Ratio (1.1-2.1) L 07/18/22 05:36 Vitamin B12 217 pg/mL (193-986) 07/16/22 05:33 Folate 7.0 ng/mL (>8.6) L 07/16/22 05:33 Stl Occult Blood (IFOB) Positive (NEGATIVE) A 07/09/22 09:35 Stool for White Cells Positive (NEGATIVE) A 07/09/22 09:35 Stl C. diff Tox B Gene Negative (NEGATIVE) 07/09/22 09:35 Stl C. diff [id number] Presumptive negative (NEGATIVE) 07/09/22 09:35 Stool H. pylori Ag Negative (NEGATIVE) 07/09/22 09:35 Cryptosporid parvum Ag Negative (NEGATIVE) 07/09/22 09:35 Giardia lamblia Ag Negative (NEGATIVE) 07/09/22 09:35 Resp Viral Panel (PCR) See scanned report 07/07/22 13:03 Plan (1) Pneumonia due to COVID-19 virus: Status: Acute Plan: SUPPLEMENTAL OXYGEN, RESPIRATORY THERAPY, NORMAL SALINE AT 60, LEVAQUIN 750MG IV Q48H, SOLU-MEDROL 40MG IV Q8H, ROBITUSSIN DM 10ML QID, TUSSIONEX 5ML Q12H PRN, ASCORBIC ACID 1000MG PO BID, XOPENEX NEB TX TID, PULMICORT NEB TX BID, AND HER HOME MEDICATIONS WERE RESUMED. (2) Hypoxia: Status: Resolved (3) Anemia: Status: Acute Qualifiers: Anemia type: unspecified type Qualified Code(s): D64.9 - Anemia, unspecified Plan: MONITOR H&H (4) HTN (hypertension): Status: Chronic Qualifiers: Hypertension type: primary hypertension Qualified Code(s): I10 - Essential (primary) hypertension Plan: HOLD BP MEDS AT THIS TIME DUE TO HYPOTENSION (5) CAD (coronary artery disease): Status: Chronic Qualifiers: Coronary Disease-Associated Artery/Lesion type: bypass graft [place] vs. transplanted heart: [place] heart (6) Seizure disorder: Status: Chronic (7) Hyperlipidemia: Status: Chronic Qualifiers: Hyperlipidemia type: mixed hyperlipidemia Qualified Code(s): E78.2 - Mixed hyperlipidemia
[2022-07-18] MEDS ORDERED: XOPENEX 1.25 MG/3 ML NEBULE NEB ONE (20:04)
[2022-07-18] MEDS: MIRALAX POWDER (1 DOSE 17 G) PO SCH (21:34)
[2022-07-18] MEDS: COLACE CAP 100 MG PO SCH (21:35)
[2022-07-18] MEDS: CRESTOR TAB 10 MG PO SCH (21:35)
[2022-07-19] MEDS ORDERED: NS 1/2 1,000 ML IV 1,000 ML IV ONE ×2 (00:52→19:40)
[2022-07-19] MEDS: NS 1/2 1,000 ML IV 1,000 ML IV SCH ×3 (04:00→21:09)
[2022-07-19] MEDS: BUSPAR PO SCH ×3 (05:12→21:10)
[2022-07-19] MEDS: SOLU-Medrol 40 MG VIAL IVP SCH (05:12)
[2022-07-19 05:43] LABS: BASOPHILS # (AUTO) 0.1 X10^3/uL (0.0-0.1); BASOPHILS % (AUTO) 0.4 % (0.2-1.0); HEMATOCRIT 21.8 % (36.0-47.0); HEMOGLOBIN 7.3 g/dL (12.0-16.0); LYMPHOCYTES # (AUTO) 0.9 X10^3/uL (1.3-2.9); MEAN CORPUSCULAR HEMOGLOBIN 25.5 pg (27.0-34.0); MEAN CORPUSCULAR HGB CONC 33.7 g/dL (33.0-35.0); MEAN CORPUSCULAR VOLUME 75.7 fL (80.0-100.0); MEAN PLATELET VOLUME 7.8 fL (7.4-11.0); MONOCYTES # (AUTO) 0.9 x10^3/uL (0.3-0.8); MONOCYTES % (AUTO) 5.3 % (0.0-13.0); NEUTROPHILS # (AUTO) 15.5 x10^3/uL (2.2-4.8); NEUTROPHILS % (AUTO) 89.3 % (42.0-75.0); RED BLOOD COUNT 2.88 X10^6/uL (3.5-5.4); RED CELL DISTRIBUTION WIDTH 15.2 % (11.6-16.5); WHITE BLOOD COUNT 17.3 X10^3/uL (3.6-10.0)
[2022-07-19] MEDS: XOPENEX 1.25 MG/3 ML NEBULE NEB SCH ×3 (05:57→21:00)
[2022-07-19 06:00] LABS: ALANINE AMINOTRANSFERASE 17 Units/L (12-78); ALBUMIN 1.7 g/dL (3.4-5.0); ALKALINE PHOSPHATASE 46 Units/L (46-116); ASPARTATE AMINO TRANSFERASE 13 Units/L (15-37); BLOOD UREA NITROGEN 28 mg/dL (7-18); CALCIUM 7.7 mg/dL (8.5-10.1); CHLORIDE 105 mmol/L (98-107); COR CA(FOR HYPOALB) 9.5 mg/dL (8.5-10.1); CREATININE 1.43 mg/dL (0.55-1.02); SODIUM 136 mmol/L (136-145); TOTAL PROTEIN 4.1 g/dL (6.4-8.2); eGFR NON BLACK RACES 39 (>60)
[2022-07-19] MEDS: NovoLIN R (or HumuLIN R) SC SCH ×4 (06:06→22:18)
[2022-07-19] MEDS: PEPCID 20 MG VIAL 20 MG in NS 50 ML IV 50 ML IV SCH (08:02)
[2022-07-19] MEDS: VSL#3 PO SCH (08:05)
[2022-07-19] MEDS: PLAVIX PO SCH (08:05)
[2022-07-19] MEDS: VITAMIN C PO SCH ×2 (08:05→21:10)
[2022-07-19] MEDS: ROBITUSSIN DM PO SCH ×4 (08:05→21:10)
[2022-07-19] MEDS: KEPPRA TAB 500 MG PO SCH (08:06)
[2022-07-19] MEDS: PROTONIX TAB 40 MG PO SCH (08:06)
[2022-07-19] MEDS: CARAFATE PO SCH ×2 (08:06→21:10)
[2022-07-19] MEDS: LOPRESSOR TAB 50 MG PO SCH ×2 (08:07→21:11)
[2022-07-19] MEDS: ASPIRIN EC 81 MG PO SCH (08:07)
[2022-07-19] MEDS: LEVAQUIN PREMIX IV 750 MG 750 MG/150 ML BAG IV SCH (08:07)
[2022-07-19] MEDS: LANTUS SC SCH (08:08)
[2022-07-19] MEDS: PULMICORT NEB TX 0.5 MG NEB SCH ×2 (09:15→21:00)
--- NOTE | 2022-07-19 11:29 | PCM.PROG ---
Progress Note Progress Note for Day of Date of Exam: 07/19/22 Subjective Subjective: PT IS A 67 YEAR OLD FEMALE ADMITTED FOR TREATMENT OF PNEUMONIA DUE TO COVID-19, HYPOXIA, DEHYDRATION, AND ANEMIA. RISK FACTORS AND PMH INCLUDE: CVA, SEIZURE DISORDER, CAD, CA, HYPERLIPIDEMIA, HTN, AND CAGB. THIS MORNING PATIENT IS SITTING UP IN BED. SHE REPORTS THAT HER STRENGTH HAS IMPROVED A LITTLE COMPARED TO YESTERDAY. NO ACUTE EVENTS OVERNIGHT. SHE CONTINUES TO HAVE INTERMITTENT NON-PRODUCTIVE COUGH, SHORTNESS OF BREATH, AND GENERALIZED WEAKNESS. SHE IS CURRENTLY UTILIZING OXYGEN VIA NASAL CANNULA AT 2 LPM. LABS WERE OBTAINED. WBC 17.3, HGB 7.3, PLT 244, NA 136, K 3.6, CREATININE 1.43, GLUCOSE 84. A RESPIRATORY VIRAL PANEL REVEALED GROWTH OF ENTEROBACTER SPP, E.COLI, KLEBSIELLA SPP, AND STREPTOCOCCUS PNEUMONIAE. BLOOD AND STOOL CULTURES ARE NEGATIVE. SHE IS CURRENTLY RECEIVING NORMAL SALINE AT 60, LEVAQUIN 750MG IV Q48H, SOLU-MEDROL 40MG IV Q8H, ROBITUSSIN DM 10ML QID, TUSSIONEX 5ML Q12H PRN, ASCORBIC ACID 1000MG PO BID, XOPENEX NEB TX TID, PULMICORT NEB TX BID, THE POTASSIUM AND MAGNESIUM PROTOCOLS, AND HER HOME MEDICATIONS WERE RESUMED. WILL DISCONTINUE SOLUMEDROL. DUE TO CONTINUED WEAKNESS, WILL LIKELY NEED REHABILITATION. PT TO EVALUATE. OTHERWISE, WE WILL FOLLOW-UP WITH AM LABS AND CHEST XRAY AND CONTINUE TO MONITOR. Past Medical Family Social History Past Med/Fam/Surg Hx: No changes since H&P Allergies: Allergies No Known Allergies Allergy (Verified 07/07/22 13:28) Review of Systems ROS: No change since H&P Vital Signs and I&O's Vital Signs: Temperature 97.9 F Pulse Rate [Right Brachial] 65 Pulse Rate 65 Respiratory Rate 18 Blood Pressure [Right Calf] 100/54 Blood Pressure [Left Calf] 92/54 Blood Pressure [Left Arm] 119/56 Blood Pressure [Right Arm] 167/74 O2 Sat by Pulse Oximetry 95 Intake and Output: Intake & Output 07/16/22 07/17/22 07/18/22 07/19/22 23:59 23:59 23:59 23:59 Intake Total 2161 / 2161 3312 / 3312 3958 / 3958 874 / 874 Balance 2161 / 2161 3312 / 3312 3958 / 3958 874 / 874 Physical Exam Oriented: Normal Eyes: Normal Ear: Normal Nose: Normal Throat: Normal Respiratory: Generalized and Diminished Cardiovascular: Normal : Normal Auscultation: Bowel Sounds: Normal Tenderness: Normal Skin: Normal Musculoskeletal: Normal Psychiatric: Normal Mood Description: Calm Affect: Normal Speech Pattern: Clear and Appropriate Laboratory and Diagnostics Result Diagrams: 07/19/22 05:11 07/19/22 05:11 Labs: 07/07/22 13:44 Blood Blood Culture - Final 07/07/22 13:33 Blood Blood Culture - Final 07/09/22 09:35 Stool Stool Culture - Final 07/09/22 09:35 Stool - Final Laboratory WBC 17.3 X10^3/uL (3.6-10.0) H 07/19/22 05:11 RBC 2.88 X10^6/uL (3.5-5.4) L 07/19/22 05:11 Hgb 7.3 g/dL (12.0-16.0) L 07/19/22 05:11 Hct 21.8 % (36.0-47.0) L 07/19/22 05:11 MCV 75.7 fL (80.0-100.0) L 07/19/22 05:11 MCH 25.5 pg (27.0-34.0) L 07/19/22 05:11 MCHC 33.7 g/dL (33.0-35.0) 07/19/22 05:11 RDW 15.2 % (11.6-16.5) 07/19/22 05:11 Plt Count 244 X10^3/uL (150.0-450.0) 07/19/22 05:11 Plt Count Comment Adequate (ADEQUATE) 07/18/22 05:36 MPV 7.8 fL (7.4-11.0) 07/19/22 05:11 Neut % (Auto) 89.3 % (42.0-75.0) H 07/19/22 05:11 Lymph % (Auto) 5.0 % (21.0-51.0) L 07/19/22 05:11 [place] % (Auto) 5.3 % (0.0-13.0) 07/19/22 05:11 Eos % (Auto) 0.0 % (0.9-2.9) L 07/19/22 05:11 Baso % (Auto) 0.4 % (0.2-1.0) 07/19/22 05:11 Neut # (Auto) 15.5 x10^3/uL (2.2-4.8) H 07/19/22 05:11 Lymph # (Auto) 0.9 X10^3/uL (1.3-2.9) L 07/19/22 05:11 [place] # (Auto) 0.9 x10^3/uL (0.3-0.8) H 07/19/22 05:11 Eos # (Auto) 0.0 x10^3/uL (0.0-0.2) 07/19/22 05:11 Baso # (Auto) 0.1 X10^3/uL (0.0-0.1) 07/19/22 05:11 Absolute Nucleated RBC 0.0 /100WBC 07/19/22 05:11 Total Counted 100 07/18/22 05:36 Neutrophils % (Manual) 94 % (39-76) H 07/18/22 05:36 Band Neutrophils % 1 % (0-10) 07/10/22 05:20 Lymphocytes % (Manual) 3 % (13-43) L 07/18/22 05:36 Monocytes % (Manual) 3 % (4-9) L 07/18/22 05:36 Plt Morphology Comment Normal (NORMAL) 07/18/22 05:36 RBC Morphology Abnormal (NORMAL) A 07/18/22 05:36 Hypochromasia Slight A 07/18/22 05:36 Microcytosis Slight A 07/18/22 05:36 Ovalocytes Slight A 07/14/22 05:30 [place] Cells Slight A 07/18/22 05:36 D-Dimer 2.53 ug/ml (0.0-0.57) H 07/07/22 13:33 Sodium 136 mmol/L (136-145) 07/19/22 05:11 Corrected Sodium TNP 07/19/22 05:11 Potassium 3.6 mmol/L (3.5-5.1) 07/19/22 05:11 Chloride 105 mmol/L (98-107) 07/19/22 05:11 Carbon Dioxide 27.0 mmol/L (21-32) 07/19/22 05:11 BUN 28 mg/dL (7-18) H 07/19/22 05:11 Creatinine 1.43 mg/dL (0.55-1.02) H 07/19/22 05:11 Est GFR (MDRD) Af Amer 47 (>60) L 07/19/22 05:11 Est GFR (MDRD) Non-Af 39 (>60) L 07/19/22 05:11 Glucose 84 mg/dL (65-99) 07/19/22 05:11 POC Glucose (mg/dL) 228 mg/dL (65-99) H 07/18/22 22:02 Calcium 7.7 mg/dL (8.5-10.1) L 07/19/22 05:11 Corrected Calcium 9.5 mg/dL (8.5-10.1) 07/19/22 05:11 Magnesium 2.1 mg/dL (2.0-2.9) 07/13/22 05:11 Iron 120 ug/dL (50-175) 07/16/22 05:33 Transferrin 123 mg/dL (202-364) L 07/16/22 05:33 Ferritin 291 ng/mL (8-252) H 07/16/22 05:33 Total Bilirubin 0.30 mg/dL (0.2-1.0) 07/19/22 05:11 AST 13 Units/L (15-37) L 07/19/22 05:11 ALT 17 Units/L (12-78) 07/19/22 05:11 Alkaline Phosphatase 46 Units/L (46-116) 07/19/22 05:11 Creatine Kinase 32 Units/L (26-192) 07/07/22 13:33 Troponin I High Sens 32.8 ng/L (4.0-60.0) 07/07/22 13:33 C-Reactive Protein 1.10 mg/L (0-3.0) 07/17/22 05:50 B-Natriuretic Peptide 133 pg/mL (0-79) H 07/17/22 05:50 Total Protein 4.1 g/dL (6.4-8.2) L 07/19/22 05:11 Albumin 1.7 g/dL (3.4-5.0) L 07/19/22 05:11 Globulin 2.4 g/dL (2.5-4.5) L 07/19/22 05:11 Albumin/Globulin Ratio 0.7 Ratio (1.1-2.1) L 07/19/22 05:11 Vitamin B12 217 pg/mL (193-986) 07/16/22 05:33 Folate 7.0 ng/mL (>8.6) L 07/16/22 05:33 Stl Occult Blood (IFOB) Positive (NEGATIVE) A 07/09/22 09:35 Stool for White Cells Positive (NEGATIVE) A 07/09/22 09:35 Stl C. diff Tox B Gene Negative (NEGATIVE) 07/09/22 09:35 Stl C. diff [id number] Presumptive negative (NEGATIVE) 07/09/22 09:35 Stool H. pylori Ag Negative (NEGATIVE) 07/09/22 09:35 Cryptosporid parvum Ag Negative (NEGATIVE) 07/09/22 09:35 Giardia lamblia Ag Negative (NEGATIVE) 07/09/22 09:35 Resp Viral Panel (PCR) See scanned report 07/07/22 13:03 Plan (1) Pneumonia due to COVID-19 virus: Status: Acute Plan: SUPPLEMENTAL OXYGEN, RESPIRATORY THERAPY, NORMAL SALINE AT 60, LEVAQUIN 750MG IV Q48H, SOLU-MEDROL 40MG IV Q8H, ROBITUSSIN DM 10ML QID, TUSS IONEX 5ML Q12H PRN, ASCORBIC ACID 1000MG PO BID, XOPENEX NEB TX TID, PULMICORT NEB TX BID, AND HER HOME MEDICATIONS WERE RESUMED. (2) Hypoxia: Status: Resolved (3) Anemia: Status: Acute Qualifiers: Anemia type: unspecified type Qualified Code(s): D64.9 - Anemia, unspecified Plan: MONITOR H&H (4) HTN (hypertension): Status: Chronic Qualifiers: Hypertension type: primary hypertension Qualified Code(s): I10 - Essential (primary) hypertension Plan: HOLD BP MEDS AT THIS TIME DUE TO HYPOTENSION (5) CAD (coronary artery disease): Status: Chronic Qualifiers: Coronary Disease-Associated Artery/Lesion type: bypass graft [place] vs. transplanted heart: [place] heart (6) Seizure disorder: Status: Chronic (7) Hyperlipidemia: Status: Chronic Qualifiers: Hyperlipidemia type: mixed hyperlipidemia Qualified Code(s): E78.2 - Mixed hyperlipidemia
[2022-07-19] MEDS: NORCO 7.5/325 MG TAB PO PRN (11:44)
[2022-07-19] MEDS: CRESTOR TAB 10 MG PO SCH (21:10)
[2022-07-19] MEDS: COLACE CAP 100 MG PO SCH (21:11)
[2022-07-19] MEDS: MIRALAX POWDER (1 DOSE 17 G) PO SCH (21:12)
[2022-07-20] MEDS: BUSPAR PO SCH (05:07)
[2022-07-20 06:05] LABS: BASOPHILS % (AUTO) 0.2 % (0.2-1.0); EOSINOPHILS # (AUTO) 0.1 x10^3/uL (0.0-0.2); EOSINOPHILS % (AUTO) 0.3 % (0.9-2.9); HEMATOCRIT 22.4 % (36.0-47.0); HEMOGLOBIN 7.5 g/dL (12.0-16.0); LYMPHOCYTES # (AUTO) 1.5 X10^3/uL (1.3-2.9); LYMPHOCYTES % (AUTO) 8.7 % (21.0-51.0); MEAN CORPUSCULAR HEMOGLOBIN 25.6 pg (27.0-34.0); MEAN CORPUSCULAR HGB CONC 33.8 g/dL (33.0-35.0); MEAN CORPUSCULAR VOLUME 75.9 fL (80.0-100.0); MEAN PLATELET VOLUME 7.7 fL (7.4-11.0); MONOCYTES # (AUTO) 0.9 x10^3/uL (0.3-0.8); MONOCYTES % (AUTO) 5.4 % (0.0-13.0); NEUTROPHILS # (AUTO) 14.7 x10^3/uL (2.2-4.8); NEUTROPHILS % (AUTO) 85.4 % (42.0-75.0); RED BLOOD COUNT 2.95 X10^6/uL (3.5-5.4); RED CELL DISTRIBUTION WIDTH 15.4 % (11.6-16.5); WHITE BLOOD COUNT 17.2 X10^3/uL (3.6-10.0)
[2022-07-20 06:19] LABS: ALANINE AMINOTRANSFERASE 17 Units/L (12-78); ALBUMIN 1.7 g/dL (3.4-5.0); ALKALINE PHOSPHATASE 51 Units/L (46-116); ASPARTATE AMINO TRANSFERASE 14 Units/L (15-37); BLOOD UREA NITROGEN 24 mg/dL (7-18); CALCIUM 7.8 mg/dL (8.5-10.1); CARBON DIOXIDE 26.1 mmol/L (21-32); CHLORIDE 105 mmol/L (98-107); COR CA(FOR HYPOALB) 9.6 mg/dL (8.5-10.1); CREATININE 1.39 mg/dL (0.55-1.02); SODIUM 138 mmol/L (136-145); TOTAL PROTEIN 4.1 g/dL (6.4-8.2); eGFR NON BLACK RACES 40 (>60)
[2022-07-20] MEDS: NovoLIN R (or HumuLIN R) SC SCH ×2 (06:22→11:23)
[2022-07-20] MEDS: PULMICORT NEB TX 0.5 MG NEB SCH (09:25)
[2022-07-20] MEDS: PROTONIX TAB 40 MG PO SCH (09:35)
[2022-07-20] MEDS: ROBITUSSIN DM PO SCH (09:35)
[2022-07-20] MEDS: ASPIRIN EC 81 MG PO SCH (09:36)
[2022-07-20] MEDS: KEPPRA TAB 500 MG PO SCH (09:37)
[2022-07-20] MEDS: VITAMIN C PO SCH (09:37)
[2022-07-20] MEDS: LOPRESSOR TAB 50 MG PO SCH (09:37)
[2022-07-20] MEDS: PEPCID 20 MG VIAL 20 MG in NS 50 ML IV 50 ML IV SCH (09:37)
[2022-07-20] MEDS: CARAFATE PO SCH (09:38)
[2022-07-20] MEDS: VSL#3 PO SCH (09:38)
[2022-07-20] MEDS: LANTUS SC SCH (09:39)
[2022-07-20] MEDS: PLAVIX PO SCH (09:43)
--- NOTE | 2022-07-20 09:53 | W.DIS.FURT ---
Summary of Discharge Discharge Summary of Date Date of Exam: 07/20/22 Admission Date Date of Admission: 07/07/22 Admission Diagnosis Patient Problems (Updated 07/14/22 @ 13:23 by Ga Cho) Pneumonia due to COVID-19 virus (Acute) U07.1, J12.82 Hypoxia (Resolved) R09.02 HTN (hypertension) (Chronic) I10 CAD (coronary artery disease) (Chronic) I25.10 Seizure disorder (Chronic) G40.909 Hyperlipidemia (Chronic) E78.5 Acute kidney failure (Acute) N17.9 Anemia (Acute) D64.9 Hospital Course: PT IS A 67 YEAR OLD FEMALE ADMITTED FOR TREATMENT OF PNEUMONIA DUE TO COVID-19, HYPOXIA, DEHYDRATION, AND ANEMIA. RISK FACTORS AND PMH INCLUDE: CVA, SEIZURE DISORDER, CAD, DE, HYPERLIPIDEMIA, HTN, AND CAGB. A RESPIRATORY VIRAL PANEL REVEALED GROWTH OF ENTEROBACTER SPP, E.COLI, KLEBSIELLA SPP, AND STREPTOCOCCUS PNEUMONIAE. HER HOSPITAL/TREATMENT COURSE INCLUDED SUPPLEMENTAL OXYGEN VIA NASAL CANNULA, IVF NORMAL SALINE AT 60, LEVAQUIN 750MG IV Q48H, SOLU-MEDROL 40MG IV Q8H, ROBITUSSIN DM 10ML QID, TUSSIONEX 5ML Q12H PRN, ASCORBIC ACID 1000MG PO BID, XOPENEX NEB TX TID, PULMICORT NEB TX BID, THE POTASSIUM AND MAGNESIUM PROTOCOLS, AND HER HOME MEDICATIONS WERE RESUMED. PT RESPONEDED WELL TO TR EATMENTS AND SYMPTOMS SIGNIFICANTLY IMPROVED. SHE DID CONTINUE TO HAVE WEAKNESS AND WOULD BENEFIT WITH PHYSICAL REHABILITATION. PT DISCHARGED IN STABLE CONDITION TO SNF. Vital Signs: Vital Signs (72 hours) 07/17/22 10:08 07/17/22 12:00 07/17/22 16:00 Temperature 98.4 F 98.4 F Pulse Rate Pulse Rate [Right Brachial] 70 64 Respiratory Rate 18 18 Blood Pressure [Left Arm] Blood Pressure [Right Arm] 117/62 134/64 O2 Sat by Pulse Oximetry 100 99 Oxygen Delivery Method Nasal Cannula Nasal Cannula Nasal Cannula Oxygen Flow Rate 2 2 2 FIO2% 07/17/22 20:15 07/17/22 20:15 07/17/22 20:00 Temperature 97.8 F Pulse Rate 73 Pulse Rate [Right Brachial] 62 Respiratory Rate 18 Blood Pressure [Left Arm] Blood Pressure [Right Arm] 135/65 O2 Sat by Pulse Oximetry 98 100 Oxygen Delivery Method Nasal Cannula Nasal Cannula Oxygen Flow Rate 2 2 FIO2% 28 07/17/22 19:00 07/17/22 23:54 07/18/22 04:00 Temperature 97.5 F L 97.6 F Pulse Rate Pulse Rate [Right Brachial] 59 L 50 L Respiratory Rate 18 20 Blood Pressure [Left Arm] Blood Pressure [Right Arm] 163/74 167/74 O2 Sat by Pulse Oximetry 100 99 Oxygen Delivery Method Nasal Cannula Nasal Cannula Nasal Cannula Oxygen Flow Rate 2 2 2 FIO2% 07/18/22 07:00 07/18/22 07:00 07/18/22 09:30 Temperature Pulse Rate Pulse Rate [Right Brachial] Respiratory Rate 20 Blood Pressure [Left Arm] Blood Pressure [Right Arm] O2 Sat by Pulse Oximetry Oxygen Delivery Method Nasal Cannula Nasal Cannula Oxygen Flow Rate 2 FIO2% 28 07/18/22 09:30 07/18/22 08:00 07/18/22 12:00 Temperature 97.9 F 98 F Pulse Rate 62 Pulse Rate [Right Brachial] 70 68 Respiratory Rate 18 18 Blood Pressure [Left Arm] 134/75 138/64 Blood Pressure [Right Arm] O2 Sat by Pulse Oximetry 99 96 99 Oxygen Delivery Method Nasal Cannula Nasal Cannula Oxygen Flow Rate 2 2 FIO2% 07/18/22 16:00 07/18/22 19:00 07/18/22 20:00 Temperature 98.3 F 98.2 F Pulse Rate Pulse Rate [Right Brachial] 64 56 L Respiratory Rate 18 18 Blood Pressure [Left Arm] 127/61 144/66 Blood Pressure [Right Arm] O2 Sat by Pulse Oximetry 99 99 Oxygen Delivery Method Nasal Cannula Nasal Cannula Nasal Cannula Oxygen Flow Rate 2 2 2 FIO2% 07/18/22 21:29 07/18/22 21:29 07/19/22 00:00 Temperature 97.9 F Pulse Rate 67 Pulse Rate [Right Brachial] 59 L Respiratory Rate 18 Blood Pressure [Left Arm] 172/76 Blood Pressure [Right Arm] O2 Sat by Pulse Oximetry 97 99 Oxygen Delivery Method Nasal Cannula Nasal Cannula Oxygen Flow Rate 2 2 FIO2% 28 07/19/22 04:00 07/19/22 06:30 07/19/22 11:44 Temperature 97.6 F Pulse Rate Pulse Rate [Right Brachial] 64 Respiratory Rate 18 17 Blood Pressure [Left Arm] 165/73 Blood Pressure [Right Arm] O2 Sat by Pulse Oximetry 98 Oxygen Delivery Method Nasal Cannula Nasal Cannula Oxygen Flow Rate 2 FIO2% 07/19/22 08:00 07/19/22 07:00 07/19/22 09:15 Temperature 97.9 F Pulse Rate Pulse Rate [Right Brachial] 65 Respiratory Rate 18 Blood Pressure [Left Arm] 119/56 Blood Pressure [Right Arm] O2 Sat by Pulse Oximetry 94 L Oxygen Delivery Method Nasal Cannula Nasal Cannula Nasal Cannula Oxygen Flow Rate 2 2 2 FIO2% 28 07/19/22 09:15 07/19/22 12:44 07/19/22 12:00 Temperature 98.0 F Pulse Rate 65 Pulse Rate [Right Brachial] 64 Respiratory Rate 17 18 Blood Pressure [Left Arm] 156/70 Blood Pressure [Right Arm] O2 Sat by Pulse Oximetry 95 95 Oxygen Delivery Method Nasal Cannula Oxygen Flow Rate 2 FIO2% 07/19/22 16:00 07/19/22 19:00 07/19/22 20:00 Temperature 98.7 F 98.5 F Pulse Rate Pulse Rate [Right Brachial] 55 L 56 L Respiratory Rate 18 18 Blood Pressure [Left Arm] 148/66 137/63 Blood Pressure [Right Arm] O2 Sat by Pulse Oximetry 98 99 Oxygen Delivery Method Nasal Cannula Nasal Cannula Nasal Cannula Oxygen Flow Rate 2 2 2 FIO2% 07/19/22 21:00 07/19/22 21:00 07/20/22 00:00 Temperature 98.7 F Pulse Rate 57 L Pulse Rate [Right Brachial] 59 L Respiratory Rate 20 Blood Pressure [Left Arm] 133/61 Blood Pressure [Right Arm] O2 Sat by Pulse Oximetry 96 99 Oxygen Delivery Method Nasal Cannula Nasal Cannula Oxygen Flow Rate 2 2 FIO2% 28 07/20/22 04:00 07/20/22 07:00 07/20/22 09:25 Temperature 98.3 F Pulse Rate Pulse Rate [Right Brachial] 54 L Respiratory Rate 20 Blood Pressure [Left Arm] 147/68 Blood Pressure [Right Arm] O2 Sat by Pulse Oximetry 95 Oxygen Delivery Method Nasal Cannula Nasal Cannula Nasal Cannula Oxygen Flow Rate 2 2 2 FIO2% 28 07/20/22 09:25 Temperature Pulse Rate 59 L Pulse Rate [Right Brachial] Respiratory Rate Blood Pressure [Left Arm] Blood Pressure [Right Arm] O2 Sat by Pulse Oximetry 96 Oxygen Delivery Method Oxygen Flow Rate FIO2% Labs: Laboratory Last Values WBC 17.2 X10^3/uL (3.6-10.0) H 07/20/22 05:36 RBC 2.95 X10^6/uL (3.5-5.4) L 07/20/22 05:36 Hgb 7.5 g/dL (12.0-16.0) L 07/20/22 05:36 Hct 22.4 % (36.0-47.0) L 07/20/22 05:36 MCV 75.9 fL (80.0-100.0) L 07/20/22 05:36 MCH 25.6 pg (27.0-34.0) L 07/20/22 05:36 MCHC 33.8 g/dL (33.0-35.0) 07/20/22 05:36 RDW 15.4 % (11.6-16.5) 07/20/22 05:36 Plt Count 257 X10^3/uL (150.0-450.0) 07/20/22 05:36 Plt Count Comment Adequate (ADEQUATE) 07/18/22 05:36 MPV 7.7 fL (7.4-11.0) 07/20/22 05:36 Neut % (Auto) 85.4 % (42.0-75.0) H 07/20/22 05:36 Lymph % (Auto) 8.7 % (21.0-51.0) L 07/20/22 05:36 [place] % (Auto) 5.4 % (0.0-13.0) 07/20/22 05:36 Eos % (Auto) 0.3 % (0.9-2.9) L 07/20/22 05:36 Baso % (Auto) 0.2 % (0.2-1.0) 07/20/22 05:36 Neut # (Auto) 14.7 x10^3/uL (2.2-4.8) H 07/20/22 05:36 Lymph # (Auto) 1.5 X10^3/uL (1.3-2.9) 07/20/22 05:36 [place] # (Auto) 0.9 x10^3/uL (0.3-0.8) H 07/20/22 05:36 Eos # (Auto) 0.1 x10^3/uL (0.0-0.2) 07/20/22 05:36 Baso # (Auto) 0.0 X10^3/uL (0.0-0.1) 07/20/22 05:36 Absolute Nucleated RBC 0.0 /100WBC 07/20/22 05:36 Total Counted 100 07/18/22 05:36 Neutrophils % (Manual) 94 % (39-76) H 07/18/22 05:36 Band Neutrophils % 1 % (0-10) 07/10/22 05:20 Lymphocytes % (Manual) 3 % (13-43) L 07/18/22 05:36 Monocytes % (Manual) 3 % (4-9) L 07/18/22 05:36 Plt Morphology Comment Normal (NORMAL) 07/18/22 05:36 RBC Morphology Abnormal (NORMAL) A 07/18/22 05:36 Hypochromasia Slight A 07/18/22 05:36 Microcytosis Slight A 07/18/22 05:36 Ovalocytes Slight A 07/14/22 05:30 [place] Cells Slight A 07/18/22 05:36 D-Dimer 2.53 ug/ml (0.0-0.57) H 07/07/22 13:33 Sodium 138 mmol/L (136-145) 07/20/22 05:36 Corrected Sodium TNP 07/20/22 05:36 Potassium 3.4 mmol/L (3.5-5.1) L 07/20/22 05:36 Chloride 105 mmol/L (98-107) 07/20/22 05:36 Carbon Dioxide 26.1 mmol/L (21-32) 07/20/22 05:36 BUN 24 mg/dL (7-18) H 07/20/22 05:36 Creatinine 1.39 mg/dL (0.55-1.02) H 07/20/22 05:36 Est GFR (MDRD) Af Amer 49 (>60) L 07/20/22 05:36 Est GFR (MDRD) Non-Af 40 (>60) L 07/20/22 05:36 Glucose 59 mg/dL (65-99) L 07/20/22 05:36 POC Glucose (mg/dL) 77 mg/dL (65-99) 07/20/22 06:17 Calcium 7.8 mg/dL (8.5-10.1) L 07/20/22 05:36 Corrected Calcium 9.6 mg/dL (8.5-10.1) 07/20/22 05:36 Magnesium 1.4 mg/dL (2.0-2.9) L 07/20/22 05:36 Iron 120 ug/dL (50-175) 07/16/22 05:33 Transferrin 123 mg/dL (202-364) L 07/16/22 05:33 Ferritin 291 ng/mL (8-252) H 07/16/22 05:33 Total Bilirubin 0.20 mg/dL (0.2-1.0) 07/20/22 05:36 AST 14 Units/L (15-37) L 07/20/22 05:36 ALT 17 Units/L (12-78) 07/20/22 05:36 Alkaline Phosphatase 51 Units/L (46-116) 07/20/22 05:36 Creatine Kinase 32 Units/L (26-192) 07/07/22 13:33 Troponin I High Sens 32.8 ng/L (4.0-60.0) 07/07/22 13:33 C-Reactive Protein 1.10 mg/L (0-3.0) 07/17/22 05:50 B-Natriuretic Peptide 133 pg/mL (0-79) H 07/17/22 05:50 Total Protein 4.1 g/dL (6.4-8.2) L 07/20/22 05:36 Albumin 1.7 g/dL (3.4-5.0) L 07/20/22 05:36 Globulin 2.4 g/dL (2.5-4.5) L 07/20/22 05:36 Albumin/Globulin Ratio 0.7 Ratio (1.1-2.1) L 07/20/22 05:36 Vitamin B12 217 pg/mL (193-986) 07/16/22 05:33 Folate 7.0 ng/mL (>8.6) L 07/16/22 05:33 Stl Occult Blood (IFOB) Positive (NEGATIVE) A 07/09/22 09:35 Stool for White Cells Positive (NEGATIVE) A 07/09/22 09:35 Stl C. diff Tox B Gene Negative (NEGATIVE) 07/09/22 09:35 Stl C. diff [id number] Presumptive negative (NEGATIVE) 07/09/22 09:35 Stool H. pylori Ag Negative (NEGATIVE) 07/09/22 09:35 Cryptosporid parvum Ag Negative (NEGATIVE) 07/09/22 09:35 Giardia lamblia Ag Negative (NEGATIVE) 07/09/22 09:35 Resp Viral Panel (PCR) See scanned report 07/07/22 13:03 Reason For Visit: COVID, DEHYDRATION, FAILED OUTPATIENT TREATMENT Discharge Diagnosis All Active Problems (Updated 07/14/22 @ 13:23 by Ga Cho) Pneumonia due to COVID-19 virus (Acute) HTN (hypertension) (Chronic) CAD (coronary artery disease) (Chronic) Seizure disorder (Chronic) Hyperlipidemia (Chronic) Acute kidney failure (Acute) Anemia (Acute) Plan of Treatment: Continue with present treatment and follow up plan. Pt is to keep follow up appointment as instructed and take medications as ordered. Discharge Medications Discharge Medications: No Known Allergies Allergy (Verified 07/07/22 13:28) CONTINUE taking the following medications amlodipine 10 mg tablet 10 mg PO QDAY 07/07/22 [History] aspirin 81 mg tablet,delayed release 81 mg PO DAILY 07/07/22 [History] buspirone 15 mg tablet 15 mg PO TID 07/07/22 [History] clopidogrel 75 mg tablet 75 mg PO QDAY 07/07/22 [History] fenofibrate 54 mg tablet 54 mg PO QDAY 07/07/22 [History] hydralazine 10 mg tablet 10 mg PO TID PRN 07/07/22 [History] hydrocodone 7.5 mg-acetaminophen 325 mg tablet 7.5 mg PO TID PRN 07/07/22 [History] insulin degludec 100 unit/mL (3 mL) subcutaneous pen (Tresiba FlexTouch U-100 insulin) 25 unit subcut QDAY 07/07/22 [History] levetiracetam 500 mg tablet 500 mg PO QDAY 07/07/22 [History] lisinopril 20 mg tablet 20 mg PO BID 07/07/22 [History] metformin 1,000 mg tablet 1,000 mg PO BID 07/07/22 [History] metoprolol succinate 50 mg tablet,extended release 24 hr 100 mg PO BID 07/07/22 [History] omeprazole 40 mg capsule,delayed release 40 mg PO QDAY 07/07/22 [History] rosuvastatin 40 mg tablet 40 mg PO QDAY 07/07/22 [History] sucralfate 1 gram tablet 1 g PO BID 07/07/22 [History] Discharge Disposition Discharge Disposition: SNF Discharge Condition: STABLE Discharge Plan Discharge Plan Hospital Course: PT IS A 67 YEAR OLD FEMALE ADMITTED FOR TREATMENT OF PNEUMONIA DUE TO COVID-19, HYPOXIA, DEHYDRATION, AND ANEMIA. RISK FACTORS AND PMH INCLUDE: CVA, SEIZURE DISORDER, CAD, DE, HYPERLIPIDEMIA, HTN, AND CAGB. A RESPIRATORY VIRAL PANEL REVEALED GROWTH OF ENTEROBACTER SPP, E.COLI, KLEBSIELLA SPP, AND STREPTOCOCCUS PNEUMONIAE. HER HOSPITAL/TREATMENT COURSE INCLUDED SUPPLEMENTAL OXYGEN VIA NASAL CANNULA, IVF NORMAL SALINE AT 60, LEVAQUIN 750MG IV Q48H, SOLU-MEDROL 40MG IV Q8H, ROBITUSSIN DM 10ML QID, TUSSIONEX 5ML Q12H PRN, ASCORBIC ACID 1000MG PO BID, XOPENEX NEB TX TID, PULMICORT NEB TX BID, THE POTASSIUM AND MAGNESIUM PROTOCOLS, AND HER HOME MEDICATIONS WERE RESUMED. PT RESPONEDED WELL TO TREATMENTS AND SYMPTOMS SIGNIFICANTLY IMPROVED. SHE DID CONTINUE TO HAVE WEAKNESS AND WOULD BENEFIT WITH PHYSICAL REHABILITATION. PT DISCHARGED IN STABLE CONDITION TO SNF. Patient Disposition: SNF Condition: Stable Health Concerns: Post Hospitalization: new medications and changes needed to prevent readmission or further decline. Pt educated and given instructions on all concerns. Care Plan Goals: Problem: Fluid Volume Deficit Goal: Maintain/Improved Adequate hydration. Instructions: Follow provided instructions. Follow up with primary physician as directed. Contact primary care physician or report to the closest Emergency Room if condition worsens. Plan of Treatment: Continue with present treatment and follow up plan. Pt is to keep follow up appointment as instructed and take medications as ordered. Prescriptions: Continued hydralazine 10 mg tablet 10 mg PO TID PRN metoprolol succinate 50 mg tablet extended release 24 hr 100 mg PO BID levetiracetam 500 mg tablet 500 mg PO QDAY sucralfate 1 gram tablet 1 g PO BID lisinopril 20 mg tablet 20 mg PO BID clopidogrel 75 mg tablet 75 mg PO QDAY omeprazole 40 mg capsule,delayed release(DR/EC) 40 mg PO QDAY aspirin 81 mg Tablet,Delayed Release (Dr/Ec) 81 mg PO DAILY amlodipine 10 mg tablet 10 mg PO QDAY metformin 1,000 mg tablet 1,000 mg PO BID buspirone 15 mg tablet 15 mg PO TID rosuvastatin 40 mg tablet 40 mg PO QDAY fenofibrate 54 mg tablet 54 mg PO QDAY insulin degludec [Tresiba FlexTouch U-100] 100 unit/mL (3 mL) insulin pen 25 unit SUBCUT QDAY hydrocodone-acetaminophen 7.5-325 mg tablet 7.5 mg PO TID MDD 3 PRN (Reason: Pain) Qty: 30 0RF Orders to Discharge Patient Discharge Orders: Discharge (Routine); Ordered 07/20/22 Ordered By: Ishmael Amezcua Follow ups/Referrals Follow ups/Referrals: Ga Cho [Primary Care Provider] - 1 WEEK Instructions Instructions: COVID-19, 10 Things You Can Do to Manage Your COVID-19 Symptoms at Home - CDC (01/10/2020), Dehydration, Elderly, Rehydration, Elderly, Community-Acquired Pneumonia, Adult, [id number]
[2022-07-20] MEDS: MAGNESIUM SULFATE 1 GRAM/100 mL PREMIX 1 G/100 ML BAG IV PRN ×2 (11:20→12:30)
[2022-07-20] MEDS ORDERED: ZOFRAN INJ 4 MG VIAL IVP PRN (13:09)
[2022-07-20] MEDS ORDERED: ZOFRAN INJ 4 MG VIAL ONE (13:11)
[2022-07-20 14:13] VITALS: BP 154/78
== END 2022-07-20 13:45 | DRG 177 ==
LOC: MED/SURG
PROVIDERS: ADMIT Internal Medicine; ATTEND Internal Medicine
DX: Z99.81 Dependence on supplemental oxygen; R79.89 Other specified abnormal findings of blood chemistry; I95.9 Hypotension, unspecified; R79.82 Elevated C-reactive protein (CRP); R53.1 Weakness; D64.9 Anemia, unspecified; I25.10 Atherosclerotic heart disease of native coronary artery without angina pectoris; B96.1 Klebsiella pneumoniae [K. pneumoniae] as the cause of diseases classified elsewhere; R26.89 Other abnormalities of gait and mobility; J44.9 Chronic obstructive pulmonary disease, unspecified; S90.811A Abrasion, right foot, initial encounter; K21.9 Gastro-esophageal reflux disease without esophagitis; J12.82 Pneumonia due to coronavirus disease 2019; R06.02 Shortness of breath; U07.1 COVID-19; G40.909 Epilepsy, unspecified, not intractable, without status epilepticus; M19.90 Unspecified osteoarthritis, unspecified site; Z86.73 Personal history of transient ischemic attack (TIA), and cerebral infarction without residual deficits; E86.0 Dehydration; R19.7 Diarrhea, unspecified; I25.2 Old myocardial infarction; R09.02 Hypoxemia; E78.2 Mixed hyperlipidemia; B95.3 Streptococcus pneumoniae as the cause of diseases classified elsewhere; B96.89 Other specified bacterial agents as the cause of diseases classified elsewhere; Z72.0 Tobacco use; Y93.89 Activity, other specified; Z95.1 Presence of aortocoronary bypass graft; I10 Essential (primary) hypertension; X58.XXXA Exposure to other specified factors, initial encounter; R79.1 Abnormal coagulation profile; N17.9 Acute kidney failure, unspecified; B96.29 Other Escherichia coli [E. coli] as the cause of diseases classified elsewhere; Y92.89 Other specified places as the place of occurrence of the external cause

== ENCOUNTER 2024-08-31 14:29 | Inpatient (IN) ==
[2024-08-31 14:39] VITALS: BMI 29.9
--- NOTE | 2024-08-31 14:58 | EKG ---
Test Reason : tachycardia Blood Pressure : */* mmHG Vent. Rate : 126 BPM Atrial Rate : 126 BPM P-R Int : 134 ms QRS Dur : 80 ms QT Int : 310 ms P-R-T Axes : 78 8 122 degrees QTc Int : 448 ms Sinus tachycardia Septal infarct , age undetermined Abnormal ECG When compared with ECG of 07-JUL-2022 13:50, Vent. rate has increased BY 44 BPM T wave inversion no longer evident in Inferior leads Nonspecific T wave abnormality no longer evident in Anterior leads Confirmed by Mc Sanchez MD ([id number]) on 09/01/2024 6:31:49 AM Referred By: Confirmed By: Mc Sanchez MD
[2024-08-31 15:01] LABS: ABG BASE EXCESS -0.1 mmol/L (-2.0-2.0); ABG HCO3 23.9 mmol/L (22-26)
[2024-08-31 15:02] LABS: ABG ALLEN TEST POS
[2024-08-31] MEDS: DUONEB 0.5 MG/3 MG (3 mL) NEB ONE (15:27)
[2024-08-31] MEDS: APRESOLINE INJ 20 MG VIAL IVP ONE (15:28)
[2024-08-31] MEDS: SOLU-Medrol 125 MG VIAL IVP ONE (15:28)
[2024-08-31 15:45] LABS: ALBUMIN 2.7 g/dL (3.4-5.0); CARBON DIOXIDE 28.1 mmol/L (21-32); CREATININE 1.33 mg/dL (0.55-1.02); POTASSIUM 3.9 mmol/L (3.5-5.1); TOTAL PROTEIN 7.7 g/dL (6.4-8.2)
[2024-08-31 15:48] LABS: BASOPHILS # (AUTO) 0.1 X10^3/uL (0.0-0.1); BASOPHILS % (AUTO) 0.6 % (0.2-1.0); EOSINOPHILS # (AUTO) 0.1 x10^3/uL (0.0-0.2); EOSINOPHILS % (AUTO) 0.6 % (0.9-2.9); HEMATOCRIT 36.3 % (36.0-47.0); HEMOGLOBIN 11.6 g/dL (12.0-16.0); LYMPHOCYTES % (AUTO) 6.1 % (21.0-51.0); MEAN CORPUSCULAR HEMOGLOBIN 23.1 pg (27.0-34.0); MEAN CORPUSCULAR HGB CONC 31.9 g/dL (33.0-35.0); MEAN CORPUSCULAR VOLUME 72.3 fL (80.0-100.0); MEAN PLATELET VOLUME 7.9 fL (7.4-11.0); MONOCYTES # (AUTO) 1.2 x10^3/uL (0.3-0.8); MONOCYTES % (AUTO) 7.6 % (0.0-13.0); NEUTROPHILS # (AUTO) 13.4 x10^3/uL (2.2-4.8); NEUTROPHILS % (AUTO) 85.1 % (42.0-75.0); PLATELET COUNT 339 X10^3/uL (150.0-450.0); RED BLOOD COUNT 5.03 X10^6/uL (3.5-5.4); RED CELL DISTRIBUTION WIDTH 18.7 % (11.6-16.5); WHITE BLOOD COUNT 15.7 X10^3/uL (3.6-10.0)
[2024-08-31 16:09] LABS: PLATELET MORPHOLOGY COMMENT NORMAL (NORMAL)
[2024-08-31 16:10] LABS: ANISOCYTOSIS SLIGHT; HYPOCHROMASIA 1+; MICROCYTOSIS SLIGHT
--- NOTE | 2024-08-31 16:47 | CT ---
EXAM: CHEST W/O CON HISTORY: past month she has had upper respiratory symptoms. She states that she has been coughing and congesti on.; COMPARISON: Frontal chest radiograph July 16, 2022 TECHNIQUE: CT of the chest without intravenous contrast. FINDINGS: Sensitivity is reduced without intravenous contrast. The thoracic aorta demonstrates multifocal adva nced atherosclerotic calcification. Extensive coronary atherosclerotic calcifications are noted. Me warner sternotomy wires are present. No pericardial effusion. No mediastinal lymphadenopathy. Small hiatal hernia is noted. Limited visualization of the upper abdomen demonstrates nonobstructing left nephrolithiasis. No acut e upper abdominal process. Lung windows demonstrate emphysematous changes bilaterally. There are mild airspace infiltrates in t he right upper lobe and right middle lobe. Ground-glass nodular density abuts the pleura in the late ral left upper lobe spanning 9 mm. Ground-glass nodular density in the left lower lobe spans 1.1 cm. Mild scattered airspace infiltrates in the left lower lobe. No pneumothorax or pleural effusion. No suspicious bony lesion. Multilevel degenerative spinal changes suggesting DISH. IMPRESSION: Bilateral emphysematous changes with mild bilateral superimposed infiltrates some with ground-glass n odular appearance. The appearance is nonspecific and could be infectious/inflammatory or less likely possibly neoplastic. Three-month CT follow-up of the chest is advised for re-evaluation to demonstr ate stability or resolution. All CT scans at this facility use dose modulation, iterative reconstruction, and/or weight based dosi ng when appropriate to reduce radiation dose to as low as reasonably achievable. THIS IS AN ELECTRONICALLY VERIFIED FINAL REPORT 08/31/2024 4:44 PM - Electronically signed by Jak Vivar MD
[2024-08-31] MEDS: CIPRO IV 400 MG PREMIX* 400 MG/200 ML IV.SOLN. IV ONE (17:20)
--- NOTE | 2024-08-31 17:25 | DR.URIAD ---
HPI Time Seen Time Seen by Provider: 08/31/24 16:00 PCP Primary Care Physician: Marquis HPI Comment HPI Comment: Patient with a history of cough and congestion over the last month had tried a Z-Maurizio and was having some improvement but over the last 2 weeks started worsening with some shortness of breath especially with ambulation and coughing up yellow sputum. Patient does have a history of heavy smoking and even though she denied having a history of COPD she does use an albuterol inhaler daily. She states she has smoked since she was a child but that she has been trying to cut down and only smokes 1 pack a day. She is also diabetic and states she is not sure what her last A1c was but it was more than 8. Her son states he thinks it was 11. Patient states she has had some subjective fever but did not measure. Complaint Chief Complaint:: Patient states that for the past month she has had upper respiratory symptoms. She states that she has been coughing and congestion. She went to her primary and was prescribed a zpack, and thought she was getting better. She states that for the past two weeks she has been really short of breath and coughing up yellow thick spudum. COVID-19 Coronavirus risk:travel/contact w/high risk person: Yes Has patient experienced Coronavirus symptoms: Yes Coronavirus symptoms experienced: Fever, Coughing and Shortness of Breath Source History Provided: Patient Mode of Arrival Mode of Arrival: Ambulatory Timing Onset of Chief Complaint: 08/03/24 PMH PMH Past Medical History: Yes Past Medical History: Arthritis, COPD, Coronary Artery Disease, CVA, GERD, Hypertension, Hyperthyroidism, [place] and Seizures Past Surgical History: Yes Surgical History: CABG/Valve Surgery and Other Past Surgical History Comment: Pace maker Family History History of Family Medical Conditions: Yes Family Medical History: Diabetes Mellitus and Coronary Artery Disease Social History Does patient currently use any type of tobacco product: Yes Have you used tobacco products in the last 12 months: Yes Type of Tobacco Use: Cigarettes Does any household member use tobacco: Yes Alcohol Use: None Do you use any recreational Drugs:: No Lives With: Family Lives Where: Home Travel Risk Coronavirus risk:travel/contact w/high risk person: Yes Has patient experienced Coronavirus symptoms: Yes Coronavirus symptoms experienced: Fever, Coughing and Shortness of Breath Infectious screening In the last 2 months have you had wt loss of >10#?: NO Have you had fever, night sweats or hemotysis?: No Have you traveled outside the country in the last 6 months?: No Isolation: Droplet ROS Review of Systems Constitutional: See HPI and Fever; negative Weakness Eyes: No Symptoms Reported ENTM: See HPI, Nose Discharge and Nose Congestion Respiratoy: See HPI, Productive Cough, Short of Breath and Wheezing Cardiovascular: No Symptoms Reported; negative Chest Pain, Edema, Palpitations or Syncope Gastrointestinal/Abdominal: No Symptoms Reported Genitourinary: No Symptoms Reported Neurological: No Symptoms Reported Musculoskeletal: No Symptoms Reported Integumentary: No Symptoms Reported Hematologic/Lymphatic: No Symptoms Reported Endocrine: No Symptoms Reported Psychiatric: No Symptoms Reported All Other Systems: Reviewed and Negative PE Vital Signs Vitals: Vital Signs Temperature 99.3 F Pulse Rate 112 Pulse Rate 114 Pulse Rate 115 Pulse Rate 116 Pulse Rate 133 Pulse Rate 113 Pulse Rate 116 Pulse Rate 114 Pulse Rate 113 Pulse Rate 112 Pulse Rate 113 Pulse Rate 127 Pulse Rate 122 Pulse Rate 120 Respiratory Rate 36 Respiratory Rate 36 Respiratory Rate 40 Respiratory Rate 33 Respiratory Rate 33 Respiratory Rate 33 Respiratory Rate 38 Respiratory Rate 39 Respiratory Rate 31 Respiratory Rate 33 Respiratory Rate 37 Respiratory Rate 34 Respiratory Rate 18 Blood Pressure 187/84 Blood Pressure 181/81 Blood Pressure 178/77 Blood Pressure 166/72 Blood Pressure 177/83 Blood Pressure 200/88 Blood Pressure 202/100 Blood Pressure 173/84 O2 Sat by Pulse Oximetry 92 O2 Sat by Pulse Oximetry 93 O2 Sat by Pulse Oximetry 93 O2 Sat by Pulse Oximetry 95 O2 Sat by Pulse Oximetry 94 O2 Sat by Pulse Oximetry 94 O2 Sat by Pulse Oximetry 95 O2 Sat by Pulse Oximetry 97 O2 Sat by Pulse Oximetry 100 O2 Sat by Pulse Oximetry 100 O2 Sat by Pulse Oximetry 96 O2 Sat by Pulse Oximetry 92 O2 Sat by Pulse Oximetry 95 O2 Sat by Pulse Oximetry 93 General Limitations: No Limitations General Appearance: Alert and In No Apparent Distress Head Head Exam: Normal Inspection Eyes Eye exam: Normal Appearance ENT ENT Exam: Normal Exam External Ear Exam: Normal External Inspection TM/Canal Exam: Bilateral: Normal Nose Exam: Other (Nasal turbinate erythema) Mouth Exam: Normal Inspection Throat Exam: Normal Inspection Neck Neck Exam: Normal Inspection Chest Chest Inspection: Normal Inspection Respiratory Respiratory Exam: Other (Coarse bilaterally and slightly diminished on the bases with wheezes bilaterally.) Cardiovascular Cardiovascular Exam: Regular Rate and Normal Rhythm Abdominal Exam Abdominal Exam: Normal Inspection, Normal Bowel Sounds and Soft Extremeties Extremities Exam: Normal Inspection Back Back Exam: Normal Inspection Neurologic Neurological Exam: Alert and Oriented X3 Psychiatric Psychiatric Exam: Normal Affect and Normal Mood Skin Skin Exam: Warm, Dry, Intact and Normal Color COURSE Treatment Treatment: Patient had some improvements with steroid and DuoNebs. Her oxygen saturation is still dropping into the high 80s with ambulation. Resting O2 is r unning around 90-93 on room air. She does have some CKD with her poorly controlled diabetes and given results of imaging I suspect she also has an underlying COPD condition. Consultation Called: 17:35 Consultation Comments: Discussed case with Dr. Asif and he is agreeable to admission. [facility]OR Labs Reviewed 08/31/24 15:09 08/31/24 15:09 Laboratory: WBC 15.7 X10^3/uL (3.6-10.0) H 08/31/24 15:09 RBC 5.03 X10^6/uL (3.5-5.4) 08/31/24 15:09 Hgb 11.6 g/dL (12.0-16.0) L 08/31/24 15:09 Hct 36.3 % (36.0-47.0) 08/31/24 15:09 MCV 72.3 fL (80.0-100.0) L 08/31/24 15:09 MCH 23.1 pg (27.0-34.0) L 08/31/24 15:09 MCHC 31.9 g/dL (33.0-35.0) L 08/31/24 15:09 RDW 18.7 % (11.6-16.5) H 08/31/24 15:09 Plt Count 339 X10^3/uL (150.0-450.0) 08/31/24 15:09 Plt Count Comment Adequate (ADEQUATE) 08/31/24 15:09 MPV 7.9 fL (7.4-11.0) 08/31/24 15:09 Neut % (Auto) 85.1 % (42.0-75.0) H 08/31/24 15:09 Lymph % (Auto) 6.1 % (21.0-51.0) L 08/31/24 15:09 [place] % (Auto) 7.6 % (0.0-13.0) 08/31/24 15:09 Eos % (Auto) 0.6 % (0.9-2.9) L 08/31/24 15:09 Baso % (Auto) 0.6 % (0.2-1.0) 08/31/24 15:09 Neut # (Auto) 13.4 x10^3/uL (2.2-4.8) H 08/31/24 15:09 Lymph # (Auto) 1.0 X10^3/uL (1.3-2.9) L 08/31/24 15:09 [place] # (Auto) 1.2 x10^3/uL (0.3-0.8) H 08/31/24 15:09 Eos # (Auto) 0.1 x10^3/uL (0.0-0.2) 08/31/24 15:09 Baso # (Auto) 0.1 X10^3/uL (0.0-0.1) 08/31/24 15:09 Absolute Nucleated RBC 0.4 /100WBC 08/31/24 15:09 Plt Morphology Comment Normal (NORMAL) 08/31/24 15:09 RBC Morphology Abnormal (NORMAL) A 08/31/24 15:09 Hypochromasia 1+ A 08/31/24 15:09 Anisocytosis Slight A 08/31/24 15:09 Microcytosis Slight A 08/31/24 15:09 Sample Site Rra 08/31/24 14:58 ABG pH 7.430 (7.35-7.45) 08/31/24 14:58 ABG pCO2 36.0 mmHg (35.0-45.0) 08/31/24 14:58 ABG pO2 55.0 mmHg (80.0-100.0) L 08/31/24 14:58 ABG HCO3 23.9 mmol/L (22-26) 08/31/24 14:58 ABG O2 Saturation 89.0 % (90-100) L 08/31/24 14:58 ABG Base Excess -0.1 mmol/L (-2.0-2.0) 08/31/24 14:58 Hai Test Pos 08/31/24 14:58 A-a Gradient 50.0 mmHg 08/31/24 14:58 FiO2 21.0 08/31/24 14:58 Blood Gas Comments Pt vy well eb 08/31/24 14:58 Sodium 138 mmol/L (136-145) 08/31/24 15:09 Corrected Sodium 140 mmol/L (136-145) 08/31/24 15:09 Potassium 3.9 mmol/L (3.5-5.1) 08/31/24 15:09 Chloride 102 mmol/L (98-107) 08/31/24 15:09 Carbon Dioxide 28.1 mmol/L (21-32) 08/31/24 15:09 BUN 18 mg/dL (7-18) 08/31/24 15:09 Creatinine 1.33 mg/dL (0.55-1.02) H 08/31/24 15:09 Est GFR (MDRD) Af Amer 51 (>60) L 08/31/24 15:09 Est GFR (MDRD) Non-Af 42 (>60) L 08/31/24 15:09 Glucose 176 mg/dL (65-99) H 08/31/24 15:09 Lactic Acid 0.7 mmol/L (0.4-2.0) 08/31/24 15:35 Calcium 10.0 mg/dL (8.5-10.1) 08/31/24 15:09 Corrected Calcium 11.0 mg/dL (8.5-10.1) H 08/31/24 15:09 Total Bilirubin 0.50 mg/dL (0.2-1.0) 08/31/24 15:09 AST 15 Units/L (15-37) 08/31/24 15:09 ALT 15 Units/L (12-78) 08/31/24 15:09 Alkaline Phosphatase 119 Units/L (46-116) H 08/31/24 15:09 Total Protein 7.7 g/dL (6.4-8.2) 08/31/24 15:09 Albumin 2.7 g/dL (3.4-5.0) L 08/31/24 15:09 Globulin 5.0 g/dL (2.5-4.5) H 08/31/24 15:09 Albumin/Globulin Ratio 0.5 Ratio (1.1-2.1) L 08/31/24 15:09 SARS-CoV-2 (PCR) Negative (NEGATIVE) 08/31/24 15:36 Influenza Type A (PCR) Negative (NEGATIVE) 08/31/24 15:36 Influenza Type B (PCR) Negative (NEGATIVE) 08/31/24 15:36 RSV (PCR) Negative (NEGATIVE) 08/31/24 15:36 Opioid Opioid Risk Tool Age ([place] if 16-45): No History of Preadolescent Sexual Abuse: No Total: 0 Total Score Risk Category: Low Risk Copyright: Luis Miguel WATKINS predicting aberrant behaviors Discharge Plan Diagnosis Discharge Problem: COPD exacerbation, Pneumonia, Diabetes mellitus, CKD (chronic kidney disease) Discharge Plan Patient Disposition: 09 ADMITTED INPATIENT Condition: Stable Prescriptions: No Action omeprazole 40 mg capsule,delayed release(DR/EC) 40 mg PO QDAY rosuvastatin 40 mg tablet 40 mg PO QDAY hydrocodone-acetaminophen 7.5-325 mg tablet 7.5 mg PO TID MDD 3 PRN (Reason: Pain) Qty: 30 0RF labetalol 200 mg tablet 200 mg PO BID ferrous sulfate [FeroSul] 325 mg (65 mg iron) tablet 325 mg PO DAILY Patient Comments: [NO ORIGINAL SIG] sertraline 50 mg tablet 50 mg PO BID levetiracetam 500 mg tablet 500 mg PO DAILY clopidogrel 75 mg tablet 75 mg PO DAILY Health Concerns: Post Hospitalization: new medications and changes needed to prevent readmission or further decline. Pt educated and given instructions on all concerns. Plan of Treatment: Continue with present treatment and follow up plan. Pt is to keep follow up appointment as instructed and take medications as ordered. Orders to Discharge Patient Discharge Orders: Transfer (Routine); Ordered 08/31/24 Ordered By: Dannie Erickson Follow ups/Referrals Follow ups/Referrals: Ga Cho [Primary Care Provider] - 3 days Instructions Stand Alone Forms: Find Help Web Site, Post Hospital Follow Up Care
[2024-08-31] MEDS ORDERED: HumaLOG SC PRN (17:53)
[2024-08-31] MEDS: APRESOLINE INJ 20 MG VIAL ONE (17:57)
[2024-08-31] MEDS: DUONEB 0.5 MG/3 MG (3 mL) NEB SCH (20:05)
[2024-08-31] MEDS ORDERED: CIPRO IV 400 MG PREMIX* 400 MG/200 ML IV.SOLN. IV SCH (21:00)
[2024-08-31] MEDS: NORMODYNE TAB 200 MG PO SCH (21:08)
[2024-08-31] MEDS: CARDIZEM CD 120 MG 24-HR PO SCH (21:08)
[2024-09-01] MEDS: NS 1,000 ML IV 1,000 ML IV SCH (02:08)
[2024-09-01] MEDS: CIPRO IV 400 MG PREMIX* 400 MG/200 ML IV.SOLN. IV SCH (05:11)
[2024-09-01 05:47] LABS: BASOPHILS # (AUTO) 0.1 X10^3/uL (0.0-0.1); BASOPHILS % (AUTO) 0.5 % (0.2-1.0); HEMATOCRIT 34.5 % (36.0-47.0); HEMOGLOBIN 10.9 g/dL (12.0-16.0); LYMPHOCYTES # (AUTO) 0.7 X10^3/uL (1.3-2.9); LYMPHOCYTES % (AUTO) 4.8 % (21.0-51.0); MEAN CORPUSCULAR HEMOGLOBIN 22.8 pg (27.0-34.0); MEAN CORPUSCULAR HGB CONC 31.7 g/dL (33.0-35.0); MEAN CORPUSCULAR VOLUME 71.7 fL (80.0-100.0); MONOCYTES # (AUTO) 0.4 x10^3/uL (0.3-0.8); NEUTROPHILS # (AUTO) 12.6 x10^3/uL (2.2-4.8); NEUTROPHILS % (AUTO) 91.7 % (42.0-75.0); PLATELET COUNT 310 X10^3/uL (150.0-450.0); RED BLOOD COUNT 4.81 X10^6/uL (3.5-5.4); RED CELL DISTRIBUTION WIDTH 18.9 % (11.6-16.5); WHITE BLOOD COUNT 13.7 X10^3/uL (3.6-10.0)
--- NOTE | 2024-09-01 06:05 | RAD ---
EXAM: Portable chest HISTORY: COPD COMPARISON: 07/16/2022 FINDINGS: There is a pacemaker present in the left axilla. Patient is status post median sternotomy and CABG . Heart is upper limits normal in size. No congestive heart failure is noted. Ernestina are normal. No acute alveolar infiltrates are identified. Mild interstitial lung changes are present. These appea r to be chronic. No pleural effusion or pneumothorax identified. Bony thorax is unremarkable. IMPRESSION: Lungs are well inflated and free of acute alveolar infiltrates and areas of consolidation Mild chronic interstitial lung changes THIS IS AN ELECTRONICALLY VERIFIED FINAL REPORT 09/01/2024 6:01 AM - Electronically signed by Jose Epps MD
[2024-09-01 06:51] LABS: BAND NEUTROPHILS % 1 % (0-10); PLATELET MORPHOLOGY COMMENT NORMAL (NORMAL)
[2024-09-01 06:52] LABS: ANISOCYTOSIS SLIGHT; HYPOCHROMASIA 1+; MICROCYTOSIS SLIGHT
[2024-09-01] MEDS: DUONEB 0.5 MG/3 MG (3 mL) NEB ONE (08:40)
[2024-09-01] MEDS: VISBIOME PROBIOTIC CAP 112.5 B or equivalent PO SCH (09:24)
[2024-09-01] MEDS: SOLU-Medrol 40 MG VIAL IVP SCH (09:24)
[2024-09-01] MEDS: LOVENOX INJ 40 MG SYR SC SCH (09:25)
[2024-09-01] MEDS: NovoLIN R (or HumuLIN R) SUBCUT PRN (11:15)
[2024-09-01] MEDS: KEPPRA TAB 500 MG PO SCH (12:28)
[2024-09-01] MEDS: FARXIGA PO SCH (12:28)
[2024-09-01] MEDS: K-DUR TAB 20 MEQ PO SCH (12:28)
[2024-09-01] MEDS: PLAVIX PO SCH (12:28)
[2024-09-01] MEDS: TRICOR TAB 48 MG PO SCH (12:28)
[2024-09-01] MEDS: PriLOSEC PO SCH (12:28)
[2024-09-01] MEDS: ASPIRIN 81 MG CHEWTAB PO SCH (12:28)
[2024-09-01] MEDS: ZOLOFT PO SCH (12:28)
[2024-09-01] MEDS: NORVASC TAB 10 MG PO SCH (12:28)
[2024-09-01] MEDS: NORCO 7.5/325 MG TAB PO PRN (12:34)
[2024-09-01] MEDS: NORCO 7.5/325 MG TAB ONE (12:42)
[2024-09-01] MEDS: SNACK - Diabetic Appropriate PO SCH (20:04)
[2024-09-01] MEDS: COLACE CAP 100 MG PO PRN (20:06)
[2024-09-01] MEDS ORDERED: GLUCOPHAGE ONE (20:20)
[2024-09-01] MEDS: CRESTOR TAB 10 MG PO SCH (21:00)
[2024-09-01] MEDS: GLUCOPHAGE PO SCH (21:01)
[2024-09-01] MEDS: ROBITUSSIN DM PO PRN (21:02)
[2024-09-01] MEDS: NORVASC TAB 5 MG PO SCH (21:02)
[2024-09-02 05:30] LABS: BASOPHILS % (AUTO) 0.1 % (0.2-1.0); HEMATOCRIT 32.1 % (36.0-47.0); HEMOGLOBIN 10.3 g/dL (12.0-16.0); LYMPHOCYTES # (AUTO) 0.7 X10^3/uL (1.3-2.9); LYMPHOCYTES % (AUTO) 3.9 % (21.0-51.0); MEAN CORPUSCULAR HEMOGLOBIN 22.8 pg (27.0-34.0); MEAN CORPUSCULAR VOLUME 71.4 fL (80.0-100.0); MEAN PLATELET VOLUME 7.7 fL (7.4-11.0); MONOCYTES # (AUTO) 0.7 x10^3/uL (0.3-0.8); MONOCYTES % (AUTO) 3.5 % (0.0-13.0); NEUTROPHILS # (AUTO) 17.4 x10^3/uL (2.2-4.8); NEUTROPHILS % (AUTO) 92.5 % (42.0-75.0); PLATELET COUNT 355 X10^3/uL (150.0-450.0); RED CELL DISTRIBUTION WIDTH 19.2 % (11.6-16.5); WHITE BLOOD COUNT 18.9 X10^3/uL (3.6-10.0)
[2024-09-02 05:46] LABS: ALBUMIN 2.3 g/dL (3.4-5.0); CALCIUM 9.8 mg/dL (8.5-10.1); CARBON DIOXIDE 24.3 mmol/L (21-32); COR CA(FOR HYPOALB) 11.2 mg/dL (8.5-10.1); CREATININE 1.82 mg/dL (0.55-1.02); POTASSIUM 4.3 mmol/L (3.5-5.1); TOTAL PROTEIN 6.7 g/dL (6.4-8.2)
[2024-09-02 07:26] LABS: ANISOCYTOSIS SLIGHT; HYPOCHROMASIA 1+; MICROCYTOSIS SLIGHT; PLATELET MORPHOLOGY COMMENT NORMAL (NORMAL)
[2024-09-02] MEDS ORDERED: GLUCOPHAGE ONE ×2 (08:04→19:01)
[2024-09-02] MEDS: LASIX PO SCH (08:16)
[2024-09-02] MEDS: TRESIBA U-100 INSULIN SC SCH (08:17)
--- NOTE | 2024-09-02 09:01 | DR.H&P ---
H&P History & Physical for Day of: H&P Date: 09/01/24 Chief Complaint Chief Complaint: Shortness of breath Wheezing History of Present Illness History of Present Illness: Patient is a 69-year-old female with a past medical history of COPD, Hypertension, diabetes type 2, hypothyroidism, seizure disorder presenting with shortness of breath, cough, congestion for the past week that has been progressively getting worse. She also reports cough with productive sputum. Denies fevers, chills. She is a smoker. Labs/imaging: WBC 13.7, hemoglobin 10.9, platelets 310, sodium 138, potassium 3.9, creatinine 1.33, glucose 176, ABG: pH 7.43, pCO2 36, pO2 55, HCO3 23, 89% O2 sat on room air. COVID/flu/RSV negative, AIT pending, chest x-ray was obtained that revealed Lungs are well inflated and free of acute alveolar infiltrates and areas of consolidation, Mild chronic interstitial lung changes. Patient was admitted for COPD exacerbation. She is currently on IV fluids normal saline at 50 mL/h, IV Solu-Medrol 80 every 8 hours, IV antibiotics ciprofloxacin. Scheduled bronchodilators. Will restart home medications. Otherwise continue current treatment plan. Continue closely monitor and follow-up labs/imaging. Past Medical History Past Medical History: Arthritis, COPD, Coronary Artery Disease, CVA, GERD, Hypertension, Hyperthyroidism, [place] and Seizures Past Surgical History Surgical History: CABG/Valve Surgery Additional Surgical History: LOOP RECORDER, BACK SURGERY Family History Family Medical History: Diabetes Mellitus and Coronary Artery Disease Social History Does patient currently use any type of tobacco product: Yes Have you used tobacco products in the last 12 months: Yes Type of Tobacco Use: Cigarettes Does any household member use tobacco: Yes Alcohol Use: None Drug Use: None Medications Home Medications: Home Medications Medication Instructions Recorded Confirmed Type omeprazole 40 mg capsule,delayed 40 mg PO QDAY 07/07/22 08/31/24 History release rosuvastatin 40 mg tablet 40 mg PO QDAY 07/07/22 08/31/24 History clopidogrel 75 mg tablet 75 mg PO DAILY 08/31/24 08/31/24 History dapagliflozin propanediol 10 mg 10 mg PO DAILY 08/31/24 08/31/24 History tablet (Farxiga) diltiazem HCl 120 mg 120 mg PO DAILY 08/31/24 08/31/24 History capsule,extended release 24 hr ferrous sulfate 325 mg (65 mg 325 mg PO DAILY 08/31/24 08/31/24 History iron) tablet (FeroSul) labetalol 200 mg tablet 200 mg PO BID 08/31/24 08/31/24 History levetiracetam 500 mg tablet 500 mg PO DAILY 08/31/24 08/31/24 History sertraline 50 mg tablet 50 mg PO BID 08/31/24 08/31/24 History Allergies Allergies Allergy/AdvReac Type Severity Reaction Status Date / Time No Known Allergies Allergy Verified 08/31/24 15:45 Labs 09/02/24 04:32 09/02/24 04:32 Labs: Laboratory WBC 13.7 X10^3/uL (3.6-10.0) H 09/01/24 04:45 RBC 4.81 X10^6/uL (3.5-5.4) 09/01/24 04:45 Hgb 10.9 g/dL (12.0-16.0) L 09/01/24 04:45 Hct 34.5 % (36.0-47.0) L 09/01/24 04:45 MCV 71.7 fL (80.0-100.0) L 09/01/24 04:45 MCH 22.8 pg (27.0-34.0) L 09/01/24 04:45 MCHC 31.7 g/dL (33.0-35.0) L 09/01/24 04:45 RDW 18.9 % (11.6-16.5) H 09/01/24 04:45 Plt Count 310 X10^3/uL (150.0-450.0) 09/01/24 04:45 Plt Count Comment Adequate (ADEQUATE) 09/01/24 04:45 MPV 8.0 fL (7.4-11.0) 09/01/24 04:45 Neut % (Auto) 91.7 % (42.0-75.0) H 09/01/24 04:45 Lymph % (Auto) 4.8 % (21.0-51.0) L 09/01/24 04:45 [place] % (Auto) 3.0 % (0.0-13.0) 09/01/24 04:45 Eos % (Auto) 0.0 % (0.9-2.9) L 09/01/24 04:45 Baso % (Auto) 0.5 % (0.2-1.0) 09/01/24 04:45 Neut # (Auto) 12.6 x10^3/uL (2.2-4.8) H 09/01/24 04:45 Lymph # (Auto) 0.7 X10^3/uL (1.3-2.9) L 09/01/24 04:45 [place] # (Auto) 0.4 x10^3/uL (0.3-0.8) 09/01/24 04:45 Eos # (Auto) 0.0 x10^3/uL (0.0-0.2) 09/01/24 04:45 Baso # (Auto) 0.1 X10^3/uL (0.0-0.1) 09/01/24 04:45 Absolute Nucleated RBC 0.0 /100WBC 09/01/24 04:45 Total Counted 100 09/01/24 04:45 Neutrophils % (Manual) 92 % (39-76) H 09/01/24 04:45 Band Neutrophils % 1 % (0-10) 09/01/24 04:45 Lymphocytes % (Manual) 6 % (13-43) L 09/01/24 04:45 Monocytes % (Manual) 1 % (4-9) L 09/01/24 04:45 Plt Morphology Comment Normal (NORMAL) 09/01/24 04:45 RBC Morphology Abnormal (NORMAL) A 09/01/24 04:45 Hypochromasia 1+ A 09/01/24 04:45 Anisocytosis Slight A 09/01/24 04:45 Microcytosis Slight A 09/01/24 04:45 Sample Site Rra 08/31/24 14:58 ABG pH 7.430 (7.35-7.45) 08/31/24 14:58 ABG pCO2 36.0 mmHg (35.0-45.0) 08/31/24 14:58 ABG pO2 55.0 mmHg (80.0-100.0) L 08/31/24 14:58 ABG HCO3 23.9 mmol/L (22-26) 08/31/24 14:58 ABG O2 Saturation 89.0 % (90-100) L 08/31/24 14:58 ABG Base Excess -0.1 mmol/L (-2.0-2.0) 08/31/24 14:58 Hai Test Pos 08/31/24 14:58 A-a Gradient 50.0 mmHg 08/31/24 14:58 FiO2 21.0 08/31/24 14:58 Blood Gas Comments Pt vy well eb 08/31/24 14:58 Sodium 138 mmol/L (136-145) 08/31/24 15:09 Corrected Sodium 140 mmol/L (136-145) 08/31/24 15:09 Potassium 3.9 mmol/L (3.5-5.1) 08/31/24 15:09 Chloride 102 mmol/L (98-107) 08/31/24 15:09 Carbon Dioxide 28.1 mmol/L (21-32) 08/31/24 15:09 BUN 18 mg/dL (7-18) 08/31/24 15:09 Creatinine 1.33 mg/dL (0.55-1.02) H 08/31/24 15:09 Est GFR (MDRD) Af Amer 51 (>60) L 08/31/24 15:09 Est GFR (MDRD) Non-Af 42 (>60) L 08/31/24 15:09 Glucose 176 mg/dL (65-99) H 08/31/24 15:09 Lactic Acid 0.7 mmol/L (0.4-2.0) 08/31/24 15:35 Calcium 10.0 mg/dL (8.5-10.1) 08/31/24 15:09 Corrected Calcium 11.0 mg/dL (8.5-10.1) H 08/31/24 15:09 Total Bilirubin 0.50 mg/dL (0.2-1.0) 08/31/24 15:09 AST 15 Units/L (15-37) 08/31/24 15:09 ALT 15 Units/L (12-78) 08/31/24 15:09 Alkaline Phosphatase 119 Units/L (46-116) H 08/31/24 15:09 Total Protein 7.7 g/dL (6.4-8.2) 08/31/24 15:09 Albumin 2.7 g/dL (3.4-5.0) L 08/31/24 15:09 Globulin 5.0 g/dL (2.5-4.5) H 08/31/24 15:09 Albumin/Globulin Ratio 0.5 Ratio (1.1-2.1) L 08/31/24 15:09 SARS-CoV-2 (PCR) Negative (NEGATIVE) 08/31/24 15:36 Influenza Type A (PCR) Negative (NEGATIVE) 08/31/24 15:36 Influenza Type B (PCR) Negative (NEGATIVE) 08/31/24 15:36 RSV (PCR) Negative (NEGATIVE) 08/31/24 15:36 Review of Systems Constitutional: No Symptoms Reported Eyes: No Symptoms Reported ENT: No Symptoms Reported Respiratory: Cough, Shortness of Breath and Wheezing Cardiovascular: No Symptoms Reported Gastrointestinal: No Symptoms Reported Genitourinary: No Symptoms Reported Musculoskeletal: No Symptoms Reported Skin: No Symptoms Reported Neurological: No Symptoms Reported Physical Exam Vital Signs: Vital Signs Temperature 97.6 F Pulse Rate 81 Respiratory Rate 32 Blood Pressure 137/65 O2 Sat by Pulse Oximetry 89 Oriented: Normal Eyes: Normal Ear: Normal Nose: Normal Throat: Normal Respiratory: Diminished Throughout and Wheezes Throughout Cardiovascular: Normal : Normal Auscultation: Bowel Sounds: Normal Palpation: Normal Tenderness: Normal Skin: Normal Musculoskeletal: Normal Psychiatric: Normal Mood Description: Calm and Appropriate Affect: Normal Speech Pattern: Clear and Appropriate Assessment/Plan (1) COPD exacerbation: Status: Acute Plan: IV Solu-Medrol, scheduled bronchodilators, supplemental oxygen. IV cipro. (2) Diabetes mellitus: Status: Acute (3) Seizure disorder: Status: Chronic (4) Hyperlipidemia: Qualifiers: Hyperlipidemia type: mixed hyperlipidemia Qualified Code(s): E78.2 - Mixed hyperlipidemia Status: Chronic (5) HTN (hypertension): Qualifiers: Hypertension type: primary hypertension Qualified Code(s): I10 - Essential (primary) hypertension Status: Chronic Review H&P Reviewed: Yes Patient was examined?: Yes
[2024-09-02] MEDS: MILK OF MAGNESIA PO PRN (16:42)
[2024-09-02] MEDS: NICOTINE PATCH TD SCH (17:30)
[2024-09-02] MEDS: CHECK PATCH XX SCH (21:09)
[2024-09-03 05:11] LABS: BASOPHILS % (AUTO) 0.2 % (0.2-1.0); HEMATOCRIT 32.9 % (36.0-47.0); HEMOGLOBIN 10.4 g/dL (12.0-16.0); LYMPHOCYTES # (AUTO) 0.6 X10^3/uL (1.3-2.9); LYMPHOCYTES % (AUTO) 3.3 % (21.0-51.0); MEAN CORPUSCULAR HEMOGLOBIN 22.9 pg (27.0-34.0); MEAN CORPUSCULAR HGB CONC 31.7 g/dL (33.0-35.0); MEAN CORPUSCULAR VOLUME 72.2 fL (80.0-100.0); MEAN PLATELET VOLUME 7.4 fL (7.4-11.0); MONOCYTES # (AUTO) 0.6 x10^3/uL (0.3-0.8); MONOCYTES % (AUTO) 3.1 % (0.0-13.0); NEUTROPHILS # (AUTO) 17.3 x10^3/uL (2.2-4.8); NEUTROPHILS % (AUTO) 93.4 % (42.0-75.0); PLATELET COUNT 379 X10^3/uL (150.0-450.0); RED BLOOD COUNT 4.55 X10^6/uL (3.5-5.4); RED CELL DISTRIBUTION WIDTH 19.2 % (11.6-16.5); WHITE BLOOD COUNT 18.5 X10^3/uL (3.6-10.0)
[2024-09-03 05:54] LABS: ALBUMIN 2.3 g/dL (3.4-5.0); CALCIUM 9.6 mg/dL (8.5-10.1); CARBON DIOXIDE 21.6 mmol/L (21-32); CREATININE 2.27 mg/dL (0.55-1.02); POTASSIUM 4.6 mmol/L (3.5-5.1); TOTAL PROTEIN 6.5 g/dL (6.4-8.2)
[2024-09-03 06:40] LABS: BAND NEUTROPHILS % 1 % (0-10)
[2024-09-03 06:41] LABS: ANISOCYTOSIS SLIGHT; HYPOCHROMASIA 1+; MICROCYTOSIS SLIGHT; PLATELET MORPHOLOGY COMMENT NORMAL (NORMAL)
[2024-09-03] MEDS ORDERED: GLUCOPHAGE ONE ×2 (08:03→20:06)
[2024-09-03] MEDS: KEPPRA TAB 500 MG PO SCH (08:18)
[2024-09-03] MEDS: LR 1,000 ML IV 1,500 ML IV ONE (09:37)
[2024-09-03] MEDS: LR 1,000 ML IV 1,000 ML IV ONE (09:43)
[2024-09-03] MEDS: PREDNISONE TAB 10 MG PO SCH (10:06)
[2024-09-03] MEDS: AVELOX TAB 400 MG PO SCH (10:06)
[2024-09-03] MEDS: CHLORASEPTIC SPRAY MT PRN (22:20)
[2024-09-04 06:19] LABS: BASOPHILS % (AUTO) 0.1 % (0.2-1.0); HEMATOCRIT 33.2 % (36.0-47.0); HEMOGLOBIN 10.5 g/dL (12.0-16.0); LYMPHOCYTES # (AUTO) 0.9 X10^3/uL (1.3-2.9); LYMPHOCYTES % (AUTO) 4.9 % (21.0-51.0); MEAN CORPUSCULAR HEMOGLOBIN 22.7 pg (27.0-34.0); MEAN CORPUSCULAR HGB CONC 31.6 g/dL (33.0-35.0); MEAN CORPUSCULAR VOLUME 71.8 fL (80.0-100.0); MEAN PLATELET VOLUME 7.4 fL (7.4-11.0); MONOCYTES # (AUTO) 1.2 x10^3/uL (0.3-0.8); NEUTROPHILS # (AUTO) 16.9 x10^3/uL (2.2-4.8); PLATELET COUNT 364 X10^3/uL (150.0-450.0); RED BLOOD COUNT 4.62 X10^6/uL (3.5-5.4); RED CELL DISTRIBUTION WIDTH 18.9 % (11.6-16.5)
[2024-09-04 06:45] LABS: BAND NEUTROPHILS % 4 % (0-10)
[2024-09-04 06:46] LABS: ANISOCYTOSIS SLIGHT; HYPOCHROMASIA 1+; MICROCYTOSIS SLIGHT; PLATELET MORPHOLOGY COMMENT NORMAL (NORMAL)
[2024-09-04 06:49] LABS: ALANINE AMINOTRANSFERASE 16 Units/L (12-78); ALBUMIN 2.1 g/dL (3.4-5.0); ALKALINE PHOSPHATASE 82 Units/L (46-116); ASPARTATE AMINO TRANSFERASE 14 Units/L (15-37); BLOOD UREA NITROGEN 47 mg/dL (7-18); CALCIUM 9.1 mg/dL (8.5-10.1); CARBON DIOXIDE 24.4 mmol/L (21-32); CHLORIDE 109 mmol/L (98-107); COR CA(FOR HYPOALB) 10.6 mg/dL (8.5-10.1); CREATININE 1.75 mg/dL (0.55-1.02); GLUCOSE 99 mg/dL (65-99); POTASSIUM 4.2 mmol/L (3.5-5.1); SODIUM 141 mmol/L (136-145); eGFR NON BLACK RACES 31 (>60)
[2024-09-04] MEDS ORDERED: GLUCOPHAGE ONE (08:15)
[2024-09-04] MEDS: ZOFRAN INJ 4 MG VIAL IVP PRN (11:18)
[2024-09-04 11:39] VITALS: BP 144/63; PULSE 69; RESP 18; TEMP 97.3; O2SAT 95
[2024-09-04 12:41] LABS: BLOOD UREA NITROGEN 46 mg/dL (7-18); CALCIUM 8.7 mg/dL (8.5-10.1); CARBON DIOXIDE 23.6 mmol/L (21-32); CHLORIDE 108 mmol/L (98-107); CREATININE 1.76 mg/dL (0.55-1.02); GLUCOSE 86 mg/dL (65-99); POTASSIUM 4.2 mmol/L (3.5-5.1); SODIUM 140 mmol/L (136-145); eGFR NON BLACK RACES 30 (>60)
[2024-09-04] MEDS ORDERED: GLUCOPHAGE PO SCH (21:00)
--- NOTE | 2024-09-05 10:36 | W.DIS.FURT ---
Summary of Discharge Discharge Summary of Date Date of Exam: 09/04/24 Admission Date Date of Admission: 09/01/24 Admission Diagnosis Patient Problems (Updated 08/31/24 @ 17:37 by Dannie Erickson) COPD exacerbation (Acute) J44.1 Pneumonia (Acute) J18.9 Diabetes mellitus (Acute) E11.9 CKD (chronic kidney disease) (Acute) N18.9 Hospital Course: Patient is a 69-year-old female with a past medical history of COPD, Hypertension, diabetes type 2, hypothyroidism, seizure disorder presenting with shortness of breath, cough, congestion for the past week that has been progressively getting worse. She also reports cough with productive sputum. Denies fevers, chills. She is a smoker. Labs/imaging: WBC 13.7, hemoglobin 10.9, platelets 310, sodium 138, potassium 3.9, creatinine 1.33, glucose 176, ABG: pH 7.43, pCO2 36, pO2 55, HCO3 23, 89% O2 sat on room air. COVID/flu/RSV negative, AIT pending, chest x-ray was obtained that revealed Mild chronic interstitial lung changes. Patient was admitted for COPD exacerbation. She was started on IV fluids, antibiotics, steroids and nebs. Her home medications were restarted. She was on 2-3 L NC. Her labs were monitored daily and electrolytes replaced as needed. She was feeling better. AIT showed H. Influenza. She was able to ambulate and did meet criteria for home O2. She was stable for discharge on PO antibiotics and steroids. She will f/u with PCP as scheduled. Vital Signs: Vital Signs (72 hours) 09/01/24 13:34 09/01/24 15:27 09/01/24 14:00 Temperature 98.2 F Pulse Rate Respiratory Rate 22 Blood Pressure 123/60 O2 Sat by Pulse Oximetry Oxygen Delivery Method Oxygen Flow Rate FIO2% 09/01/24 14:00 09/01/24 15:17 09/01/24 15:19 Temperature Pulse Rate 70 69 Respiratory Rate 30 H Blood Pressure 101/50 O2 Sat by Pulse Oximetry 90 L 94 L Oxygen Delivery Method Oxygen Flow Rate FIO2% 09/01/24 15:19 09/01/24 16:00 09/01/24 16:00 Temperature Pulse Rate 72 64 Respiratory Rate 14 35 H Blood Pressure 113/56 O2 Sat by Pulse Oximetry 94 L 92 L Oxygen Delivery Method Oxygen Flow Rate FIO2% 09/01/24 19:48 09/01/24 19:00 09/01/24 21:03 Temperature 97.9 F Pulse Rate 70 Respiratory Rate 26 H 26 H Blood Pressure 129/59 O2 Sat by Pulse Oximetry 92 L Oxygen Delivery Method Room Air Room Air Oxygen Flow Rate FIO2% 09/01/24 22:03 09/01/24 21:13 09/01/24 21:25 Temperature Pulse Rate 71 Respiratory Rate 22 Blood Pressure O2 Sat by Pulse Oximetry 90 L Oxygen Delivery Method Nasal Cannula Oxygen Flow Rate 2 FIO2% 28 09/02/24 00:00 09/02/24 04:00 09/02/24 08:33 Temperature 98.1 F 97.8 F Pulse Rate 63 62 Respiratory Rate 22 25 H 30 H Blood Pressure 138/63 110/50 O2 Sat by Pulse Oximetry 93 L 95 Oxygen Delivery Method Nasal Cannula Nasal Cannula Oxygen Flow Rate 2 2 FIO2% 09/02/24 08:15 09/02/24 09:33 09/02/24 09:07 Temperature Pulse Rate Respiratory Rate 26 H Blood Pressure O2 Sat by Pulse Oximetry Oxygen Delivery Method Nasal Cannula Nasal Cannula Oxygen Flow Rate 2 2 FIO2% 28 09/02/24 07:00 09/02/24 08:00 09/02/24 08:16 Temperature 97.5 F L Pulse Rate 77 73 76 Respiratory Rate 26 H 28 H 30 H Blood Pressure O2 Sat by Pulse Oximetry 96 96 96 Oxygen Delivery Method Oxygen Flow Rate FIO2% 09/02/24 08:16 09/02/24 09:00 09/02/24 09:01 Temperature Pulse Rate 69 68 Respiratory Rate 27 H 26 H Blood Pressure 140/65 O2 Sat by Pulse Oximetry 97 97 Oxygen Delivery Method Oxygen Flow Rate FIO2% 09/02/24 09:01 09/02/24 10:00 09/02/24 10:00 Temperature Pulse Rate 74 Respiratory Rate 33 H Blood Pressure 122/56 108/53 O2 Sat by Pulse Oximetry 95 Oxygen Delivery Method Oxygen Flow Rate FIO2% 09/02/24 11:00 09/02/24 11:01 09/02/24 11:01 Temperature Pulse Rate 66 66 Respiratory Rate 26 H 26 H Blood Pressure 128/58 O2 Sat by Pulse Oximetry 96 96 Oxygen Delivery Method Oxygen Flow Rate FIO2% 09/02/24 12:00 09/02/24 13:00 09/02/24 13:20 Temperature 97.9 F Pulse Rate 63 79 Respiratory Rate Blood Pressure 117/57 O2 Sat by Pulse Oximetry 99 99 Oxygen Delivery Method Oxygen Flow Rate FIO2% 09/02/24 13:20 09/02/24 16:42 09/02/24 14:00 Temperature Pulse Rate 63 71 Respiratory Rate 26 H Blood Pressure O2 Sat by Pulse Oximetry 97 97 Oxygen Delivery Method Oxygen Flow Rate FIO2% 09/02/24 15:00 09/02/24 16:00 09/02/24 16:40 Temperature 97.9 F Pulse Rate 64 62 82 Respiratory Rate Blood Pressure O2 Sat by Pulse Oximetry 98 95 95 Oxygen Delivery Method Oxygen Flow Rate FIO2% 09/02/24 16:40 09/02/24 17:42 09/02/24 19:00 Temperature Pulse Rate Respiratory Rate 26 H Blood Pressure 128/56 O2 Sat by Pulse Oximetry Oxygen Delivery Method Nasal Cannula Oxygen Flow Rate 2 FIO2% 09/02/24 20:00 09/02/24 20:43 09/02/24 20:43 Temperature 98.7 F Pulse Rate 73 76 Respiratory Rate 20 Blood Pressure 145/64 O2 Sat by Pulse Oximetry 95 96 Oxygen Delivery Method Nasal Cannula Nasal Cannula Oxygen Flow Rate 2 2 FIO2% 09/02/24 23:54 09/03/24 04:00 09/03/24 05:04 Temperature 98.1 F 98.1 F Pulse Rate 69 76 Respiratory Rate 20 22 20 Blood Pressure 123/60 131/63 O2 Sat by Pulse Oximetry 93 L 92 L Oxygen Delivery Method Nasal Cannula Nasal Cannula Oxygen Flow Rate 2 2 FIO2% 09/03/24 05:39 09/03/24 06:04 09/03/24 14:04 Temperature Pulse Rate Respiratory Rate 19 22 Blood Pressure O2 Sat by Pulse Oximetry Oxygen Delivery Method Nasal Cannula Oxygen Flow Rate 2 FIO2% 28 09/03/24 08:15 09/03/24 08:15 09/03/24 08:25 Temperature 97.8 F Pulse Rate 76 Respiratory Rate 20 Blood Pressure 133/61 O2 Sat by Pulse Oximetry 94 L Oxygen Delivery Method Nasal Cannula Nasal Cannula Nasal Cannula Oxygen Flow Rate 2 2 2 FIO2% 28 09/03/24 08:25 09/03/24 12:41 09/03/24 15:04 Temperature 97.6 F Pulse Rate 79 73 Respiratory Rate 22 22 Blood Pressure 133/60 O2 Sat by Pulse Oximetry 94 L 94 L Oxygen Delivery Method Nasal Cannula Oxygen Flow Rate 2 FIO2% 09/03/24 16:00 09/02/24 17:00 09/02/24 18:00 Temperature 97.7 F Pulse Rate 63 73 68 Respiratory Rate 18 Blood Pressure 115/52 O2 Sat by Pulse Oximetry 93 L 96 96 Oxygen Delivery Method Nasal Cannula Oxygen Flow Rate 2 FIO2% 09/02/24 19:00 09/02/24 19:57 09/02/24 19:57 Temperature Pulse Rate 62 70 Respiratory Rate Blood Pressure 145/64 O2 Sat by Pulse Oximetry 95 94 L Oxygen Delivery Method Oxygen Flow Rate FIO2% 09/02/24 20:00 09/02/24 20:55 09/02/24 23:44 Temperature Pulse Rate 85 84 Respiratory Rate Blood Pressure 123/60 O2 Sat by Pulse Oximetry 94 L 93 L Oxygen Delivery Method Oxygen Flow Rate FIO2% 09/02/24 23:44 09/03/24 04:11 09/03/24 04:11 Temperature Pulse Rate Respiratory Rate Blood Pressure 123/60 131/63 131/63 O2 Sat by Pulse Oximetry Oxygen Delivery Method Oxygen Flow Rate FIO2% 09/03/24 08:14 09/03/24 08:14 09/03/24 12:34 Temperature Pulse Rate Respiratory Rate Blood Pressure 133/61 133/61 133/60 O2 Sat by Pulse Oximetry Oxygen Delivery Method Oxygen Flow Rate FIO2% 09/03/24 12:34 09/03/24 12:34 09/03/24 19:00 Temperature Pulse Rate Respiratory Rate Blood Pressure 133/60 133/60 O2 Sat by Pulse Oximetry Oxygen Delivery Method Nasal Cannula Oxygen Flow Rate 2 FIO2% 09/03/24 19:56 09/03/24 23:41 09/03/24 21:21 Temperature 97.8 F 97.6 F Pulse Rate 67 74 Respiratory Rate 18 19 Blood Pressure 120/58 139/65 O2 Sat by Pulse Oximetry 97 96 Oxygen Delivery Method Nasal Cannula Nasal Cannula Nasal Cannula Oxygen Flow Rate 2 2 2 FIO2% 28 09/03/24 21:21 09/04/24 04:00 09/04/24 07:50 Temperature 97.8 F 97.9 F Pulse Rate 73 86 72 Respiratory Rate 19 20 Blood Pressure 151/69 141/64 O2 Sat by Pulse Oximetry 96 94 L 95 Oxygen Delivery Method Nasal Cannula Nasal Cannula Oxygen Flow Rate 2 2 FIO2% 09/04/24 07:00 09/04/24 08:37 09/04/24 09:37 Temperature Pulse Rate Respiratory Rate 20 20 Blood Pressure O2 Sat by Pulse Oximetry Oxygen Delivery Method Nasal Cannula Oxygen Flow Rate 2 FIO2% 09/04/24 10:07 09/04/24 10:08 09/04/24 11:38 Temperature 97.3 F L Pulse Rate 80 69 Respiratory Rate 18 Blood Pressure 144/63 O2 Sat by Pulse Oximetry 92 L 95 Oxygen Delivery Method Nasal Cannula Nasal Cannula Oxygen Flow Rate 2 2 FIO2% 28 Labs: Laboratory Last Values WBC 19.0 X10^3/uL (3.6-10.0) H 09/04/24 05:23 RBC 4.62 X10^6/uL (3.5-5.4) 09/04/24 05:23 Hgb 10.5 g/dL (12.0-16.0) L 09/04/24 05:23 Hct 33.2 % (36.0-47.0) L 09/04/24 05:23 MCV 71.8 fL (80.0-100.0) L 09/04/24 05:23 MCH 22.7 pg (27.0-34.0) L 09/04/24 05:23 MCHC 31.6 g/dL (33.0-35.0) L 09/04/24 05:23 RDW 18.9 % (11.6-16.5) H 09/04/24 05:23 Plt Count 364 X10^3/uL (150.0-450.0) 09/04/24 05:23 Plt Count Comment Adequate (ADEQUATE) 09/04/24 05:23 MPV 7.4 fL (7.4-11.0) 09/04/24 05:23 Neut % (Auto) 89.0 % (42.0-75.0) H 09/04/24 05:23 Lymph % (Auto) 4.9 % (21.0-51.0) L 09/04/24 05:23 [place] % (Auto) 6.0 % (0.0-13.0) 09/04/24 05:23 Eos % (Auto) 0.0 % (0.9-2.9) L 09/04/24 05:23 Baso % (Auto) 0.1 % (0.2-1.0) L 09/04/24 05:23 Neut # (Auto) 16.9 x10^3/uL (2.2-4.8) H 09/04/24 05:23 Lymph # (Auto) 0.9 X10^3/uL (1.3-2.9) L 09/04/24 05:23 [place] # (Auto) 1.2 x10^3/uL (0.3-0.8) H 09/04/24 05:23 Eos # (Auto) 0.0 x10^3/uL (0.0-0.2) 09/04/24 05:23 Baso # (Auto) 0.0 X10^3/uL (0.0-0.1) 09/04/24 05:23 Absolute Nucleated RBC 0.0 /100WBC 09/04/24 05:23 Total Counted 100 09/04/24 05:23 Neutrophils % (Manual) 92 % (39-76) H 09/04/24 05:23 Band Neutrophils % 4 % (0-10) 09/04/24 05:23 Lymphocytes % (Manual) 3 % (13-43) L 09/04/24 05:23 Monocytes % (Manual) 1 % (4-9) L 09/04/24 05:23 Nucleated RBCs 1 09/03/24 04:35 Plt Morphology Comment Normal (NORMAL) 09/04/24 05:23 RBC Morphology Abnormal (NORMAL) A 09/04/24 05:23 Hypochromasia 1+ A 09/04/24 05:23 Anisocytosis Slight A 09/04/24 05:23 Microcytosis Slight A 09/04/24 05:23 Sample Site Rra 08/31/24 14:58 ABG pH 7.430 (7.35-7.45) 08/31/24 14:58 ABG pCO2 36.0 mmHg (35.0-45.0) 08/31/24 14:58 ABG pO2 55.0 mmHg (80.0-100.0) L 08/31/24 14:58 ABG HCO3 23.9 mmol/L (22-26) 08/31/24 14:58 ABG O2 Saturation 89.0 % (90-100) L 08/31/24 14:58 ABG Base Excess -0.1 mmol/L (-2.0-2.0) 08/31/24 14:58 Hai Test Pos 08/31/24 14:58 A-a Gradient 50.0 mmHg 08/31/24 14:58 FiO2 21.0 08/31/24 14:58 Blood Gas Comments Pt vy well eb 08/31/24 14:58 Sodium 140 mmol/L (136-145) 09/04/24 12:23 Corrected Sodium TNP 09/04/24 12:23 Potassium 4.2 mmol/L (3.5-5.1) 09/04/24 12:23 Chloride 108 mmol/L (98-107) H 09/04/24 12:23 Carbon Dioxide 23.6 mmol/L (21-32) 09/04/24 12:23 BUN 46 mg/dL (7-18) H 09/04/24 12:23 Creatinine 1.76 mg/dL (0.55-1.02) H 09/04/24 12:23 Est GFR (MDRD) Af Amer 37 (>60) L 09/04/24 12:23 Est GFR (MDRD) Non-Af 30 (>60) L 09/04/24 12:23 Glucose 86 mg/dL (65-99) 09/04/24 12:23 POC Glucose (mg/dL) 87 mg/dL (65-99) 09/04/24 11:24 Lactic Acid 0.7 mmol/L (0.4-2.0) 08/31/24 15:35 Calcium 8.7 mg/dL (8.5-10.1) 09/04/24 12:23 Corrected Calcium 10.6 mg/dL (8.5-10.1) H 09/04/24 05:23 Total Bilirubin 0.20 mg/dL (0.2-1.0) 09/04/24 05:23 AST 14 Units/L (15-37) L 09/04/24 05:23 ALT 16 Units/L (12-78) 09/04/24 05:23 Alkaline Phosphatase 82 Units/L (46-116) 09/04/24 05:23 Total Protein 6.0 g/dL (6.4-8.2) L 09/04/24 05:23 Albumin 2.1 g/dL (3.4-5.0) L 09/04/24 05:23 Globulin 3.9 g/dL (2.5-4.5) 09/04/24 05:23 Albumin/Globulin Ratio 0.5 Ratio (1.1-2.1) L 09/04/24 05:23 SARS-CoV-2 (PCR) Negative (NEGATIVE) 08/31/24 15:36 Influenza Type A (PCR) Negative (NEGATIVE) 08/31/24 15:36 Influenza Type B (PCR) Negative (NEGATIVE) 08/31/24 15:36 RSV (PCR) Negative (NEGATIVE) 08/31/24 15:36 Resp Viral Panel (PCR) See scanned report 08/31/24 18:26 Reason For Visit: COPD EXACERBATION WITH PNUEMONIA/HYPOXIA, DM, CKD Discharge Diagnosis All Active Problems (Updated 08/31/24 @ 17:37 by Dannie Erickson) Pneumonia due to COVID-19 virus (Acute) HTN (hypertension) (Chronic) CAD (coronary artery disease) (Chronic) Seizure disorder (Chronic) Hyperlipidemia (Chronic) Acute kidney failure (Acute) Anemia (Acute) COPD exacerbation (Acute) Pneumonia (Acute) Diabetes mellitus (Acute) CKD (chronic kidney disease) (Acute) Plan of Treatment: Continue with present treatment and follow up plan. Pt is to keep follow up appointment as instructed and take medications as ordered. Discharge Medications Discharge Medications: No Known Allergies Allergy (Verified 08/31/24 15:45) CONTINUE taking the following medications clopidogrel 75 mg tablet 75 mg PO DAILY 08/31/24 [History] dapagliflozin propanediol 10 mg tablet (Farxiga) 10 mg PO DAILY 08/31/24 [History] diltiazem HCl 120 mg capsule,extended release 24 hr 120 mg PO DAILY 08/31/24 [History] ferrous sulfate 325 mg (65 mg iron) tablet (FeroSul) 325 mg PO DAILY 08/31/24 [History] levetiracetam 500 mg tablet 500 mg PO DAILY 08/31/24 [History] sertraline 50 mg tablet 50 mg PO BID 08/31/24 [History] albuterol sulfate 2.5 mg/3 mL (0.083 %) solution for nebulization 2.5 mg inhalation BID 09/01/24 [History] amlodipine 10 mg tablet 5 mg PO HS 09/01/24 [History] amlodipine 10 mg tablet 10 mg PO DAILY 09/01/24 [History] azelastine 137 mcg (0.1 %) nasal spray 1 spray intranasal BID 09/01/24 [History] fenofibrate 54 mg tablet 54 mg PO DAILY 09/01/24 [History] furosemide 20 mg tablet (Lasix) 20 mg PO DAILY 09/01/24 [History] insulin degludec 100 unit/mL (3 mL) subcutaneous pen (Tresiba FlexTouch U-100 insulin) 30 unit subcut DAILY 09/01/24 [History] metformin 1,000 mg tablet 1,000 mg PO DAILY 09/01/24 [History] metoprolol succinate 25 mg tablet,extended release 24 hr 25 mg PO DAILY 09/01/24 [History] potassium chloride 20 mEq tablet,extended release 20 meq PO DAILY 09/01/24 [History] New Prescriptions fluticasone fur. 100 mcg-umeclid 62.5 mcg-vilant 25 mcg inhalat.powder (Trelegy Ellipta) 1 inh inhalation ONCE #60 ea 09/02/24 [Rx] levofloxacin 500 mg tablet 500 mg PO Q24H #5 tabs 09/02/24 [Rx] prednisone 10 mg tablet 10 mg PO QDAY #5 tabs 09/02/24 [Rx] Discharge Disposition Discharge Disposition: home Discharge Condition: stable Discharge Plan Discharge Plan Hospital Course: Patient is a 69-year-old female with a past medical history of COPD, Hypertension, diabetes type 2, hypothyroidism, seizure disorder presenting with shortness of breath, cough, congestion for the past week that has been progressively getting worse. She also reports cough with productive sputum. Denies fevers, chills. She is a smoker. Labs/imaging: WBC 13.7, hemoglobin 10.9, platelets 310, sodium 138, potassium 3.9, creatinine 1.33, glucose 176, ABG: pH 7.43, pCO2 36, pO2 55, HCO3 23, 89% O2 sat on room air. COVID/flu/RSV negative, AIT pending, chest x-ray was obtained that revealed Mild chronic interstitial lung changes. Patient was admitted for COPD exacerbation. She was started on IV fluids, antibiotics, steroids and nebs. Her home medications were restarted. She was on 2-3 L NC. Her labs were monitored daily and electrolytes replaced as needed. She was feeling better. AIT showed H. Influenza. She was able to ambulate and did meet criteria for home O2. She was stable for discharge on PO antibiotics and steroids. She will f/u with PCP as scheduled. Patient Disposition: 01 HOME, SELF-CARE Condition: Stable Health Concerns: Post Hospitalization: new medications and changes needed to prevent readmission or further decline. Pt educated and given instructions on all concerns. Care Plan Goals: Problem: Respiratory Complications Goal: Improved Uncomplicated Respiratory Status Instructions: Follow provided instructions. Follow up with primary physician as directed. Contact primary care physician or report to the closest Emergency Room if condition worsens. Plan of Treatment: Continue with present treatment and follow up plan. Pt is to keep follow up appointment as instructed and take medications as ordered. Prescription drug monitoring program results: PDMP reviewed and no concerns identified Prescriptions: New prednisone 10 mg tablet 10 mg PO QDAY Qty: 5 0RF Trelegy Ellipta 100-62.5-25 mcg blister with device 1 inh inhalation ONCE Qty: 60 4RF levofloxacin [levofloxacin] 500 mg tablet 500 mg PO Q24H Qty: 5 0RF Continued omeprazole 40 mg capsule,delayed release(DR/EC) 40 mg PO QDAY rosuvastatin 40 mg tablet 40 mg PO HS hydrocodone-acetaminophen 7.5-325 mg tablet 7.5 mg PO TID MDD 3 PRN (Reason: Pain) Qty: 30 0RF ferrous sulfate [FeroSul] 325 mg (65 mg iron) tablet 325 mg PO DAILY Patient Comments: [NO ORIGINAL SIG] sertraline 50 mg tablet 50 mg PO BID levetiracetam 500 mg tablet 500 mg PO DAILY clopidogrel 75 mg tablet 75 mg PO DAILY diltiazem HCl 120 mg capsule,extended release 24hr 120 mg PO DAILY dapagliflozin propanediol [Farxiga] 10 mg tablet 10 mg PO DAILY albuterol sulfate 2.5 mg /3 mL (0.083 %) solution for nebulization 2.5 mg inhalation BID Patient Comments: [NO ORIGINAL SIG] amlodipine 10 mg tablet 5 mg PO HS amlodipine 10 mg tablet 10 mg PO DAILY metformin 1,000 mg Tablet 1,000 mg PO DAILY metoprolol succinate 25 mg Tablet Extended Release 24 Hr 25 mg PO DAILY azelastine 137 mcg (0.1 %) [place],Non-Aerosol 1 spray INTRANASAL BID Rx Instructions: ADMINISTER 1 SPRAY PER NOSTRIL TWICE A DAY. fenofibrate 54 mg Tablet 54 mg PO DAILY insulin degludec [Tresiba FlexTouch U-100] 100 unit/mL (3 mL) insulin pen 30 unit SUBCUT DAILY Patient Comments: [NO ORIGINAL SIG] potassium chloride 20 mEq Tablet Extended Release 20 meq PO DAILY furosemide [Lasix] 20 mg Tablet 20 mg PO DAILY Discontinued labetalol 200 mg tablet 200 mg PO BID Follow ups/Referrals Follow ups/Referrals: Ga Cho [Primary Care Provider] - 09/07/24 1:10 pm Instructions Instructions: Steps to Quit Smoking, [id number], Chronic Obstructive Pulmonary Disease Exacerbation, Home Oxygen Use, Adult, Community-Acquired Pneumonia, Adult, Nann-to-Nclr Activity Restrictions/Additional Instructions: Will need labs at primary care appointment to follow up renal function Stop furosemide until seen by PCP Encouraged oral intake Stand Alone Forms: Find Help Web Site, Post Hospital Follow Up Care
== END 2024-09-04 14:35 | disposition home or self-care (01) | DRG 192 ==
LOC: ER 14:29 → ICU 17:45 → MED/SURG 09-03 15:05
PROVIDERS: ADMIT Family Medicine; ATTEND Internal Medicine
DX: N18.9 Chronic kidney disease, unspecified; I12.9 Hypertensive chronic kidney disease with stage 1 through stage 4 chronic kidney disease, or unspecified chronic kidney disease; I25.10 Atherosclerotic heart disease of native coronary artery without angina pectoris; R09.02 Hypoxemia; E11.65 Type 2 diabetes mellitus with hyperglycemia; Z03.818 Encounter for observation for suspected exposure to other biological agents ruled out; R06.02 Shortness of breath; Z72.0 Tobacco use; J44.1 Chronic obstructive pulmonary disease with (acute) exacerbation; E78.2 Mixed hyperlipidemia; R00.0 Tachycardia, unspecified; K21.9 Gastro-esophageal reflux disease without esophagitis; R94.31 Abnormal electrocardiogram [ECG] [EKG]; B96.3 Hemophilus influenzae [H. influenzae] as the cause of diseases classified elsewhere; E86.0 Dehydration; Z86.69 Personal history of other diseases of the nervous system and sense organs; E03.8 Other specified hypothyroidism; M54.89 Other dorsalgia